=== PATIENT | female | born 1940 | race Caucasian/White ===

== ENCOUNTER 2016-06-28 08:55 | Inpatient (IN) | payer MEDICARE, BC ==
[~2016-06-28] VITALS: Ht 160 cm; Wt 104.7 kg
[~2016-06-28 08:55] MED LIST changes: -ASPI81TA11 PO; -CALC1TAB33 PO; -CALC250T PO; -HALO5 PO; -HYDR-3580 PO; -LOSA100T PO; -LOSA50TA PO; -MELO15TA2 PO; -VITA500T PO; -VITA60003 PO; -VITD400 PO
[2016-06-28] MEDS ORDERED: LOSA100T PO (10:14)
[2016-06-28] MEDS ORDERED: VITD400 PO (10:17)
[2016-06-28] MEDS ORDERED: VITA500T PO (10:17)
[2016-06-28] MEDS ORDERED: CALC250T PO (10:19)
[2016-07-08] MEDS: TRANEXAMIC ACID IV SCH ×2 (08:30→10:18)
[2016-07-08] MEDS ORDERED: SODIUM CHLORID 0.9% 500 ML IV SCH (08:30)
[2016-07-08] MEDS ORDERED: INSULIN HUMAN REGULAR 1,000 UNITS/10 ML VIAL SQ PRN (08:30)
[2016-07-08] MEDS ORDERED: METOPROLOL TARTRATE 25 MG TAB PO PRN (08:30)
[2016-07-08] MEDS ORDERED: ceFAZolin 2 GM PREMIX 50 ML IV SCH (08:30)
[2016-07-08] MEDS: SODIUM CHLORIDE 0.9% IV SCH ×2 (08:30→10:18)
[2016-07-08] MEDS: EXPAREL PERI-ARTICULAR INJECTION (TOTAL VOL. 100 ML) P-ARTICULR SCH ×4 (08:30→10:31)
[2016-07-08] MEDS: CHLORHEXIDINE GLUCONATE 4% SOLN 120 ML BTL TOP SCH (08:30)
[2016-07-08] MEDS: LACTATED RINGER'S 1000 ML IV SCH (08:35)
[2016-07-08 08:38] VITALS: BP 142/69; PULSE 81; RESP 16; TEMP 99; O2SAT 99
[2016-07-08] MEDS ORDERED: GENTAMICIN SULFATE 80 MG/2 ML VIAL ONE (08:46)
[2016-07-08] MEDS ORDERED: MIDAZOLAM HCL 2 MG/2 ML VIAL ONE (09:42)
[2016-07-08] MEDS ORDERED: FAMOTIDINE 20 MG/2 ML VIAL ONE (09:42)
[2016-07-08] MEDS ORDERED: ACETAMINOPHEN 1000 MG/100 ML VIAL IV ONE (09:42)
[2016-07-08] MEDS ORDERED: DEXAMETHASONE SOD PHOS 4 MG/ML VIAL ONE (09:43)
[2016-07-08] MEDS ORDERED: ONDANSETRON HCL 4 MG/2 ML VIAL IVP PRN (09:45)
[2016-07-08] MEDS ORDERED: ZOLPIDEM TARTRATE 5 MG TAB PO PRN (09:45)
[2016-07-08] MEDS ORDERED: MAGNESIUM HYDROXIDE SUSP 30 ML CUP PO PRN (09:45)
[2016-07-08] MEDS ORDERED: MORPHINE SULFATE 4 MG/ML INJ IV PUSH PRN (09:45)
[2016-07-08] MEDS ORDERED: SODIUM CHLORIDE 0.9% FLUSH 5 ML FLUSH IVF PRN (09:45)
[2016-07-08] MEDS ORDERED: Post-op Orders (for Pharmacy) MISC XX ONE (09:45)
[2016-07-08] MEDS ORDERED: ACETAMINOPHEN/HYDROcodone 325 MG/7.5 MG TAB PO PRN (09:45)
[2016-07-08] MEDS ORDERED: TRANEXAMIC ACID IV SCH ×2 (11:00→12:00)
[2016-07-08] MEDS ORDERED: SODIUM CHLORIDE 0.9% IV SCH ×2 (11:00→12:00)
[2016-07-08] MEDS ORDERED: ASPIRIN EC 81 MG TABEC PO SCH (11:45)
[2016-07-08] MEDS ORDERED: ePHEDrine/NS 25 MG/5 ML SYR IV ONE (12:00)
[2016-07-08] MEDS ORDERED: PHENYLEPH/NS 1000 MCG/10 ML SYR IV ONE (12:00)
[2016-07-08] MEDS ORDERED: PROPOFOL 200 MG/20 ML AMP IV ONE (12:00)
[2016-07-08] MEDS ORDERED: ONDANSETRON HCL 4 MG/2 ML VIAL IV PUSH ONE (12:00)
--- NOTE | 2016-07-08 13:38 | MP ---
cc: Abdirizak JORDAN. DATE OF SURGERY 07/08/2016 PREOPERATIVE DIAGNOSIS Primary osteoarthritis right knee. POSTOPERATIVE DIAGNOSIS Primary osteoarthritis right knee. OPERATION PERFORMED Right total knee arthroplasty using [employer] Triathlon prosthesis (uncemented). SURGEON Regine Jordan MD [employer] Tana Carpenter, SHEET MET[employer] APPRENTICE ANESTHESIA Spinal with supplemental adductor canal block and local. INDICATIONS AND FINDINGS This 74-year-old woman has had longstanding right knee pain for least the past two years which has progressively worsened more recently. She only walk short distances because of the pain. She has difficulty ascending and descending stairs. She has difficulty when she tries to shop. She has to lean on a cart when she is shopping. She has tried anti-inflammatory agents, analgesics, activity modification, exercise and ambulatory aids in order to improve but this does not help and it is worsening. Physical findings showed medial laxity and medial tenderness with crepitation, particularly in the medial compartment but also patellofemoral. X-rays showed severe osteoarthritis in the right knee going to [id number] with an area of irregularity in the subchondral area in the medial tibial plateau. There are medial and lateral and patellofemoral osteophytes. Operative findings showed significant arthritis. It was tricompartmental in nature, especially medially. In the posterior aspect of the tibial plateau there was an area of approximately 1.5 cm in diameter that was very soft and fibrous that could have been osteonecrosis. Underneath this was significantly sclerotic bone. PROSTHESIS USED [place] Triathlon prosthesis with the femur being a size 5 right cruciate-retaining uncemented, the tibia being a size 4 Tritanium uncemented, the spacer being a size 4, 9-mm cruciate-retaining of X3 polyethylene and the patella being a Tritanium-backed asymmetric patella size 35. PROCEDURE The patient had an adductor canal block carried out preoperatively. She was then brought to the clean-air operating suite where a spinal anesthetic was administered. She was placed into a supine position on the operating table with a small bolster under the right hip. Pneumatic tourniquet was applied to the right thigh. The limb was then prepped with alcohol, Hibiclens and Chloraprep and draped in the usual manner with the hip draped free. An appropriate time-out procedure was carried out. Local anesthesia was administered into the incision site prior to making incision. An anterior incision was then made from about three fingerbreadths above the superior medial pole of patella down to the tibial tubercle. The incision was deepened through the subcutaneous tissues to the retinacular structures which were exposed medially and laterally. A medial retinacular incision was then made from the superior medial pole of the patella down to the tibial tubercle and up into the quadriceps tendon splitting it longitudinally in the medial one-third. The patella was reflected. The infrapatellar fat pad was debulked. Medial and lateral dissection was carried out. Fenestration was made in the distal end of the femur and proximal tibia for intermedullary referencing guides. The femoral guide was then positioned for 5-degrees, 8-mm cut and stabilized with pins. The jig was removed. The distal femoral cut was completed. The sizing guide was then positioned along Whitesides line in the epicondylar axis. This was stabilized with pins. The size was determined to be a size 5 femur. A size 4 would notch significantly. The femoral four-in-one cutting block was then positioned in place and anterior and posterior cuts made followed by posterior and anterior chamfer cuts. Osteophytes were trimmed. Medial and lateral meniscectomies were completed. The anterior cruciate ligament had been excised. The distal tibial cutting block was then assembled and positioned in place with pins using the spacer. This was then adjusted according to the spacer block. The stylus was used off the high side which was lateral. An initial cut was made with the oscillating saw. This went through the middle of the lesion that was identified and palpated posteriorly. The lesion was then eliminated with the next cut 2 mm distal. There was eburnation of bone under this. This had a benign appearance that appeared more fibrous than neoplastic. The tibial baseplate trial was positioned in place after osteophytes were trimmed from the posterior aspect of the femur. The 9-mm spacer was inserted. The femoral trial was impacted into place. The tibia was adjusted for rotation and stabilized with pins. The patella drill holes were made for the 35-mm patella. The posterior surface of the patella had been excised prior to preparation of the femur. The knee was taken through a range of motion which was 0 degrees extension to about 130 degrees of flexion. The stability was excellent. Tracking was appropriate. The patella trial was removed. The femoral drill holes were made followed by removal of the femoral trial. The tibial spacer was removed. Tibial punch was impacted through its guide after fenestrations were plugged with bone plugs. Local anesthesia was administered at the knee with Exparel. The tibial baseplate was then impacted into place and seated appropriately. This was a size 4. The size 9-mm cruciate-retaining spacer was inserted into the tibia and impacted into place. The femoral component which was a size 5 right cruciate-retaining was impacted into place and seated appropriately. The patella which was a Tritanium-backed 35-mm patella was positioned in place and tightened with a patellar vice. The cut ends of bone were cleaned with pulse lavage. The drains were brought out the superolateral aspect of the suprapatellar pouch. The remainder of the local anesthesia was administered. Wound closure then commenced using 0 Vicryl interrupted [id number] sutures for retinacular closure, 2-0 Vicryl interrupted simple sutures with buried knots for the subcutaneous tissues and 4-0 Monocryl continuous subcuticular closure with the skin. The wound was dressed with Steri-Strips, followed by dry dressing, sterile Sof-Rol, cooling pad, further sterile Sof-Rol and Sergei bandage from the base of the toe to mid-thigh. The patient was transferred from the operating room to the recovery room in satisfactory condition having tolerated the procedure well. COUNTS Correct. SPECIMEN Tibial plateau lesion. ESTIMATED BLOOD LOSS 250 mL. MD AMEE Cerda/DAQUAN /12:38 PM /1:27 PM
[2016-07-08] MEDS: LACTATED RINGER'S 1000 ML INJ 1,000 ML IV SCH ×2 (13:39→21:36)
[2016-07-08] MEDS: KETOROLAC TROMETHAMINE 30 MG/ML (IVP) VIAL IVP SCH ×3 (14:00→21:35)
--- NOTE | 2016-07-08 14:21 | RADRPT ---
EXAM DATE/TIME: 07/08/2016 13:42 [place] COMPARISON: No previous studies available for comparison. INDICATIONS : Post op right knee. MEDICAL HISTORY : None. SURGICAL HISTORY : None. ENCOUNTER: Initial ACUITY: 1 day PAIN SCORE: 4/10 LOCATION: Right knee FINDINGS: Two view examination of the right knee demonstrates postsurgical changes following joint replacement. Patellar, femoral and tibial prosthetic components are in satisfactory alignment well seated. Surgical drain is identified within the joint. There is no acute fracture. CONCLUSION: Satisfactory post operative appearance of the right knee following joint replacement. Vidal St MD on July 08, 2016 at 14:18 Board Certified Radiologist. This report was verified electronically.
[2016-07-08] MEDS ORDERED: *morphine SULFATE 8 MG/ML PERIprocedure ONLY ONE ×2 (14:57→16:10)
[2016-07-08 16:15] VITALS: BP 124/73; PULSE 82; RESP 18; TEMP 97; O2SAT 96
--- NOTE | 2016-07-08 17:04 | PD.CONS ---
HPI Service [facility] Hospitalists Consult Requested By Dr. Mari Reason for Consult Medical management Primary Care Physician Donna Perez DO Diagnoses: (1) Primary osteoarthritis of right knee (2) Hypertension (3) Schizophrenia (4) Sleep apnea History of Present Illness The patient is a 76-year-old female with history of hypertension and schizophrenia who is status post right total knee arthroplasty. Hospitalist consultation was requested for medical management. The patient states that her pain is currently well controlled. She has no other acute concerns. Denies chest pain or dyspnea. Review of Systems Constitutional: DENIES: Fever, Chills, Night Sweats Eyes: DENIES: Blurred vision, Vision loss Ears, nose, mouth, throat: DENIES: Hearing loss Respiratory: DENIES: Cough, Wheezing, Sputum production, Shortness of breath Cardiovascular: DENIES: Chest pain, Palpitations, Dyspnea on Exertion, Lower Extremity Edema Gastrointestinal: DENIES: Abdominal pain, Constipation, Diarrhea, Nausea, Vomiting Genitourinary: DENIES: Urinary frequency, Urinary incontinence, Urgency, Hematuria, Dysuria, Nocturia Musculoskeletal: COMPLAINS OF: Joint pain, DENIES: Muscle aches Integumentary: DENIES: Pruritus, Rash Hematologic/lymphatic: DENIES: Bruising Neurologic: DENIES: Headache Past Family Social History Allergies: Coded Allergies: No Known Allergies (Unverified , 07/08/16) Past Medical History Hypertension Osteoarthritis Schizophrenia Sleep apnea Past Surgical History Vulvectomy Hysterectomy Bilateral cataract surgery Reported Medications Losartan 100 mg daily Haldol 2.5 mg daily at bedtime Pravastatin 40 mg daily Multivitamin daily Aspirin 81 mg daily Meloxicam 15 mg daily Protonix 40 mg daily calcium citrate daily Vitamin C daily Vitamin D 3 daily Vitamin E daily Family History Heart disease Social History Patient denies alcohol, tobacco, or illicit drug use. Physical Exam Vital Signs Vital Signs Date Time Temp Pulse Resp B/P Pulse Ox O2 Delivery O2 Flow Rate FiO2 07/08/16 16:37 Room Air 07/08/16 16:15 97.0 82 18 124/73 96 07/08/16 16:15 98.2 76 16 141/74 96 Room Air 07/08/16 16:00 93 16 159/80 98 Room Air 07/08/16 15:30 81 16 131/70 95 Room Air 07/08/16 15:00 73 17 137/67 97 Room Air 07/08/16 14:30 69 17 117/65 97 Room Air 07/08/16 14:00 71 15 126/73 100 Room Air 07/08/16 13:45 76 15 129/76 100 Room Air 07/08/16 13:30 69 15 122/58 95 Nasal Cannula 2 07/08/16 13:15 70 17 122/64 95 Nasal Cannula 2 07/08/16 13:00 82 15 119/57 95 Nasal Cannula 2 07/08/16 12:54 97.6 90 14 110/58 93 Nasal Cannula 2 07/08/16 08:38 99.0 81 16 142/69 99 Physical Exam GENERAL: Elderly female in no acute distress. HEENT: Normocephalic, atraumatic. Pupils equal, round and reactive. Extraocular movements intact. No scleral icterus. No injection or drainage. Oropharynx is clear. Mucous membranes are moist. CARDIOVASCULAR: Regular rate and rhythm without murmurs, gallops, or rubs. RESPIRATORY: Clear to auscultation. No wheezes, rales, or rhonchi. Breathing is non-labored. GASTROINTESTINAL: Abdomen soft, non-tender, nondistended. EXTREMITIES: No lower extremity edema. No calf tenderness. Right lower extremity in CPM machine. PSYCH: Alert and oriented x 3. Laboratory Laboratory Tests Test 07/08/16 08:25 Blood Type A POSITIVE Antibody Screen NEGATIVE Blood Bank Comment Imaging Last Impressions Knee X-Ray 07/08/16 0940 Signed Impressions: Service Date/Time: Friday, July 08, 2016 13:42 - CONCLUSION: Satisfactory post operative appearance of the right knee following joint replacement. Vidal St MD Assessment and Plan Assessment and Plan 1. Osteoarthritis, right knee: Status post right total knee arthroplasty, POD # 0. Management per orthopedic surgery. Continue pain control, bowel regimen, physical therapy. 2. Hypertension: Continue losartan. 3. Schizophrenia: Continue Haldol. 4. Sleep apnea: CPAP. 5. GERD: PPI. 6. Hyperlipidemia: Continue statin. 7. DVT prophylaxis: Per orthopedic surgery. Jeb Lin MD Jul 08, 2016 17:04
[2016-07-08 20:00] VITALS: BP 109/55; PULSE 75; RESP 17; TEMP 98.2; O2SAT 94
[2016-07-08] MEDS: SODIUM CHLORIDE 0.9% FLUSH 5 ML FLUSH IVF SCH (21:35)
[2016-07-08] MEDS: HALOPERIDOL 5 MG TAB PO SCH (21:35)
[2016-07-08] MEDS: ACETAMINOPHEN/HYDROcodone 325 MG/7.5 MG TAB PO PRN (21:40)
[2016-07-08 22:04] VITALS: O2SAT 98
[2016-07-09] VITALS (9 sets, daily range): BP systolic 118–137; BP diastolic 51–68; PULSE 70–81; RESP 17–18; TEMP 96–97.8; O2SAT 95–100
[2016-07-09] MEDS: KETOROLAC TROMETHAMINE 30 MG/ML (IVP) VIAL IVP SCH ×4 (03:09→22:47)
--- NOTE | 2016-07-09 06:21 | PD.ORT.PN ---
Subjective Post Op Day #: 1 Subjective Remarks Doing well. Has some pain. Range of Motion -18 to 55 degrees. Distance Walked Sidestepped 3 times. Objective Vitals Vital Signs Date Time Temp Pulse Resp B/P Pulse Ox O2 Delivery O2 Flow Rate FiO2 07/09/16 04:00 96.3 79 18 128/58 100 07/09/16 00:00 96.3 73 17 118/53 96 07/08/16 22:04 98 21 07/08/16 20:00 98.2 75 17 109/55 94 07/08/16 16:37 Room Air 07/08/16 16:15 97.0 82 18 124/73 96 07/08/16 16:15 98.2 76 16 141/74 96 Room Air 07/08/16 16:00 93 16 159/80 98 Room Air 07/08/16 15:30 81 16 131/70 95 Room Air 07/08/16 15:00 73 17 137/67 97 Room Air 07/08/16 14:30 69 17 117/65 97 Room Air 07/08/16 14:00 71 15 126/73 100 Room Air 07/08/16 13:45 76 15 129/76 100 Room Air 07/08/16 13:30 69 15 122/58 95 Nasal Cannula 2 07/08/16 13:15 70 17 122/64 95 Nasal Cannula 2 07/08/16 13:00 82 15 119/57 95 Nasal Cannula 2 07/08/16 12:54 97.6 90 14 110/58 93 Nasal Cannula 2 07/08/16 08:38 99.0 81 16 142/69 99 I/O 07/08/16 07/08/16 07/08/16 07/09/16 07/09/16 07/09/16 07:00 15:00 23:00 07:00 15:00 23:00 Intake Total 1200 ml 1456 ml 559 ml Output Total 250 ml 220 ml 30 ml Balance 950 ml 1236 ml 529 ml Intake Oral 240 ml IV Total 1216 ml 559 ml Other 1200 ml Output Urine Total 0 ml 20 ml Drainage Total 200 ml 30 ml Estimated Blood Loss 250 ml # Voids 1 # Bowel Movements 0 Imaging Last 24 hours Impressions Knee X-Ray 07/08/16 0940 Signed Impressions: Service Date/Time: Friday, July 08, 2016 13:42 - CONCLUSION: Satisfactory post operative appearance of the right knee following joint replacement. Vidal St MD Objective Remarks Resting comfortably, supine in bed, in the CPM. The original dressing is dry and intact. The neurovascular status is intact. Assessment & Plan Ortho Post Op Day #: 1 Problem List: (1) Status post total right knee replacement Assessment and Plan Condition: Good. Orthopaedically stable. DVT prophylaxis: TEDs, sequentials, ASA. Discharge plans: Home with HHC vs SNF for rehab. Has appointment. Salo Mari MD (Charles) Jul 09, 2016 06:21
[2016-07-09 07:17] LABS: HEMATOCRIT 35.5 % (35.0-46.0); REVIEW FLAG FINAL
[2016-07-09] MEDS: LACTATED RINGER'S 1000 ML IV SCH (08:30)
[2016-07-09] MEDS: CHLORHEXIDINE GLUCONATE 4% SOLN 120 ML BTL TOP SCH (08:30)
[2016-07-09] MEDS: SODIUM CHLORIDE 0.9% FLUSH 5 ML FLUSH IVF SCH ×2 (09:00→20:07)
[2016-07-09] MEDS ORDERED: ASPIRIN EC 81 MG TABEC PO SCH (09:00)
[2016-07-09] MEDS: CHOLECALCIFEROL (VIT D3) 400 UNIT TAB PO SCH (10:03)
[2016-07-09] MEDS: PANTOPRAZOLE SOD 40 MG DELAYED RELEASE TAB PO SCH (10:03)
[2016-07-09] MEDS: PRAVASTATIN SOD 40 MG TAB PO SCH (10:03)
[2016-07-09] MEDS: ASCORBIC ACID 500 MG TAB PO SCH (10:03)
[2016-07-09] MEDS: VITAMIN E 400 UNIT CAP PO SCH (10:03)
[2016-07-09] MEDS: LOSARTAN 50 MG TAB PO SCH (10:03)
[2016-07-09] MEDS: ACETAMINOPHEN/HYDROcodone 325 MG/7.5 MG TAB PO PRN ×3 (10:04→20:09)
[2016-07-09] MEDS: MULTIVITAMIN HEMATINIC THERAPEUTIC TAB PO SCH (10:04)
[2016-07-09] MEDS: MAGNESIUM HYDROXIDE SUSP 30 ML CUP PO SCH ×2 (10:05→20:08)
[2016-07-09] MEDS: LACTATED RINGER'S 1000 ML INJ 1,000 ML IV SCH ×2 (10:40→23:10)
[2016-07-09] MEDS: ASPIRIN EC 81 MG TABEC PO SCH ×2 (11:45→20:08)
--- NOTE | 2016-07-09 14:21 | HHI.PR ---
Subjective Remarks Follow-up hypertension, schizophrenia. Objective Vitals Vital Signs Date Time Temp Pulse Resp B/P Pulse Ox O2 Delivery O2 Flow Rate FiO2 07/09/16 12:00 97.7 70 18 126/68 96 07/09/16 11:04 16 07/09/16 11:04 16 07/09/16 09:50 100 21 07/09/16 08:00 96.0 76 18 128/59 97 07/09/16 07:30 Room Air 07/09/16 04:00 96.3 79 18 128/58 100 07/09/16 00:00 96.3 73 17 118/53 96 07/08/16 22:04 98 21 07/08/16 20:00 98.2 75 17 109/55 94 07/08/16 16:37 Room Air 07/08/16 16:15 97.0 82 18 124/73 96 07/08/16 16:15 98.2 76 16 141/74 96 Room Air 07/08/16 16:00 93 16 159/80 98 Room Air 07/08/16 15:30 81 16 131/70 95 Room Air 07/08/16 15:00 73 17 137/67 97 Room Air 07/08/16 14:30 69 17 117/65 97 Room Air I/O 07/08/16 07/08/16 07/08/16 07/09/16 07/09/16 07/09/16 07:00 15:00 23:00 07:00 15:00 23:00 Intake Total 1200 ml 1456 ml 799 ml Output Total 250 ml 220 ml 30 ml Balance 950 ml 1236 ml 769 ml Intake Oral 240 ml 240 ml IV Total 1216 ml 559 ml Other 1200 ml Output Urine Total 0 ml 20 ml Drainage Total 200 ml 30 ml Estimated Blood Loss 250 ml # Voids 1 2 # Bowel Movements 0 0 Result Diagram: 07/09/16 0655 Imaging Last Impressions Knee X-Ray 07/08/16 0940 Signed Impressions: Service Date/Time: Friday, July 08, 2016 13:42 - CONCLUSION: Satisfactory post operative appearance of the right knee following joint replacement. Vidal St MD Objective Remarks General: No acute distress. Heart: Regular rate and rhythm. No murmur. Lungs: Clear to auscultation bilaterally. No wheezes, rales, or rhonchi. Breathing is nonlabored. Abdomen: Soft, nontender, nondistended. Extremities: No lower extremity edema. Psych: Alert and oriented. Procedures 07/08/16 right total knee arthroplasty A/P Problem List: (1) Primary osteoarthritis of right knee ICD Code: M17.11 Status: Chronic (2) Hypertension ICD Code: I10 Status: Chronic (3) Schizophrenia ICD Code: F20.9 Status: Chronic (4) Sleep apnea ICD Code: G47.30 Status: Chronic Assessment and Plan 1. Osteoarthritis, right knee: Status post right total knee arthroplasty, POD # 1. Management per orthopedic surgery. Continue pain control, bowel regimen, physical therapy. 2. Hypertension: Continue losartan. Blood pressure is well controlled. 3. Schizophrenia: Continue Haldol. 4. Sleep apnea: CPAP. 5. GERD: PPI. 6. Hyperlipidemia: Continue statin. 7. DVT prophylaxis: Aspirin. Jeb Lin MD Jul 09, 2016 14:21
--- NOTE | 2016-07-09 18:03 | HHI.FF ---
Face to Face Verification Diagnosis: (1) Status post total right knee replacement Physical Therapy Gait training Knee: Total knee, Protocol: Right, Gait training, Full weight bearing Right LE Weight Bearing: WB as tolerated Right LE Range of Motion: Active ROM (AROM, AAROM., PROM, PRE. ROM goal is 0 to 130 degrees. ROM in the OR was 0 to 130 degrees.) Nursing Nursing: Dressing changes Dressing Changes: Daily dressing change, Coverderm/Primapore Additional Instructions Remove steristrips on postop day 14. I have seen patient Kristen Goncalves on 07/09/16. My clinical findings support the need for the requested home health care services because: Ltd mobility - disease progression Limited ability to care for self High risk of falls I certify that my clinical findings support that this patient is homebound because: Post-op weakness Unsteady gait/balance Unsafe to leave home unassisted Salo Mari MD ([place]) Jul 09, 2016 18:03
[2016-07-09] MEDS ORDERED: ASPI81TA11 PO (18:04)
[2016-07-09] MEDS: DOCUSATE SODIUM 100 MG CAP PO SCH (20:07)
[2016-07-09] MEDS: HALOPERIDOL 5 MG TAB PO SCH (20:08)
[2016-07-09] MEDS: SENNOSIDES 8.6 MG TAB PO SCH (20:09)
[2016-07-10] MEDS: ACETAMINOPHEN/HYDROcodone 325 MG/7.5 MG TAB PO PRN ×5 (01:34→18:27)
[2016-07-10] MEDS: KETOROLAC TROMETHAMINE 30 MG/ML (IVP) VIAL IVP SCH (03:45)
--- NOTE | 2016-07-10 06:42 | PD.ORT.PN ---
Subjective Post Op Day #: 2 Subjective Remarks She is doing well. There is not much pain. Range of Motion -10 to 85 degrees. Distance Walked 12 feet twice. Objective Vitals Vital Signs Date Time Temp Pulse Resp B/P Pulse Ox O2 Delivery O2 Flow Rate FiO2 07/09/16 23:30 97.8 81 17 121/51 99 07/09/16 20:29 95 21 07/09/16 20:10 97.7 81 17 131/61 95 07/09/16 20:00 95 Room Air 07/09/16 17:30 16 07/09/16 16:28 16 07/09/16 16:00 97.6 79 18 137/62 98 07/09/16 12:00 97.7 70 18 126/68 96 07/09/16 09:50 100 21 07/09/16 08:00 96.0 76 18 128/59 97 07/09/16 07:30 Room Air I/O 07/09/16 07/09/16 07/09/16 07/10/16 07/10/16 07/10/16 07:00 15:00 23:00 07:00 15:00 23:00 Intake Total 799 ml 480 ml 720 ml 240 ml Output Total 30 ml 50 ml 20 ml Balance 769 ml 430 ml 700 ml 240 ml Intake Oral 240 ml 480 ml 720 ml 240 ml IV Total 559 ml Drainage Total 30 ml 50 ml 20 ml # Voids 2 2 2 2 # Bowel Movements 0 1 0 0 Result Diagram: 07/09/16 0655 Imaging Last 24 hours Impressions Knee X-Ray 07/08/16 0940 Signed Impressions: Service Date/Time: Friday, July 08, 2016 13:42 - CONCLUSION: Satisfactory post operative appearance of the right knee following joint replacement. Vidal St MD Objective Remarks She is resting comfortably, supine in bed, in the CPM. The original dressing is dry and intact. The neurovascular status is intact. Assessment & Plan Ortho Post Op Day #: 2 Problem List: (1) Status post total right knee replacement Plan: Continue postop care and PT. Assessment and Plan Condition: Good. Orthopaedically stable. DVT prophylaxis: TEDs, sequentials, ASA. Discharge plans: SNF for rehab. Has appointment. Salo Mari MD (Charles) Jul 10, 2016 06:42
[2016-07-10 07:24] VITALS: BP 116/78; PULSE 95; RESP 16; TEMP 96.1; O2SAT 98
[2016-07-10] MEDS: CHLORHEXIDINE GLUCONATE 4% SOLN 120 ML BTL TOP SCH (08:30)
[2016-07-10] MEDS: LACTATED RINGER'S 1000 ML IV SCH (08:30)
[2016-07-10 08:58] VITALS: O2SAT 97
--- NOTE | 2016-07-10 09:09 | HHI.PR ---
Subjective Remarks patient very motivated with physical therapy up ambulating with two therapists voided spontaneously Objective Vitals Vital Signs Date Time Temp Pulse Resp B/P Pulse Ox O2 Delivery O2 Flow Rate FiO2 07/10/16 08:58 97 21 07/09/16 23:30 97.8 81 17 121/51 99 07/09/16 20:29 95 21 07/09/16 20:10 97.7 81 17 131/61 95 07/09/16 20:00 95 Room Air 07/09/16 17:30 16 07/09/16 16:28 16 07/09/16 16:00 97.6 79 18 137/62 98 07/09/16 12:00 97.7 70 18 126/68 96 07/09/16 09:50 100 21 I/O 07/09/16 07/09/16 07/09/16 07/10/16 07/10/16 07/10/16 07:00 15:00 23:00 07:00 15:00 23:00 Intake Total 799 ml 480 ml 720 ml 240 ml Output Total 30 ml 50 ml 20 ml 15 ml Balance 769 ml 430 ml 700 ml 225 ml Intake Oral 240 ml 480 ml 720 ml 240 ml IV Total 559 ml Drainage Total 30 ml 50 ml 20 ml 15 ml # Voids 2 2 2 2 # Bowel Movements 0 1 0 0 Result Diagram: 07/09/16 0655 Imaging Last Impressions Knee X-Ray 07/08/16 0940 Signed Impressions: Service Date/Time: Friday, July 08, 2016 13:42 - CONCLUSION: Satisfactory post operative appearance of the right knee following joint replacement. Vidal St MD Objective Remarks awake and alert, NAD lungs clear regular rhythm abdomen- soft extremities - right knee- post op dressing in place, no calf tenderness ambulating with PT with FWW Procedures 07/08/16 right total knee arthroplasty A/P Problem List: (1) Primary osteoarthritis of right knee ICD Code: M17.11 Status: Chronic (2) Hypertension ICD Code: I10 Status: Chronic (3) Schizophrenia ICD Code: F20.9 Status: Chronic (4) Sleep apnea ICD Code: G47.30 Status: Chronic Assessment and Plan 76 years old female 1. Osteoarthritis, right knee: Status post right total knee arthroplasty 07/08. Management per orthopedic surgery. Continue pain control, bowel regimen, physical therapy. 2. Hypertension: Continue losartan. Blood pressure is well controlled. 3. Schizophrenia: Continue Haldol. 4. Sleep apnea: CPAP. 5. GERD: PPI. 6. Hyperlipidemia: Continue statin. 7. DVT prophylaxis: Aspirin. bid CM - DC planning- tomorrow to SNF if arranged Awa Bowen MD Jul 10, 2016 09:09
[2016-07-10] MEDS: LOSARTAN 50 MG TAB PO SCH (09:23)
[2016-07-10] MEDS: MAGNESIUM HYDROXIDE SUSP 30 ML CUP PO SCH ×2 (09:23→21:00)
[2016-07-10] MEDS: VITAMIN E 400 UNIT CAP PO SCH (09:24)
[2016-07-10] MEDS: PRAVASTATIN SOD 40 MG TAB PO SCH (09:24)
[2016-07-10] MEDS: MULTIVITAMIN HEMATINIC THERAPEUTIC TAB PO SCH (09:24)
[2016-07-10] MEDS: PANTOPRAZOLE SOD 40 MG DELAYED RELEASE TAB PO SCH (09:24)
[2016-07-10] MEDS: DOCUSATE SODIUM 100 MG CAP PO SCH ×2 (09:24→21:00)
[2016-07-10] MEDS: CHOLECALCIFEROL (VIT D3) 400 UNIT TAB PO SCH (09:24)
[2016-07-10] MEDS: ASCORBIC ACID 500 MG TAB PO SCH (09:24)
[2016-07-10] MEDS: ASPIRIN EC 81 MG TABEC PO SCH ×2 (09:24→21:01)
[2016-07-10] MEDS: SODIUM CHLORIDE 0.9% FLUSH 5 ML FLUSH IVF SCH ×2 (09:25→21:01)
[2016-07-10] MEDS: LACTATED RINGER'S 1000 ML INJ 1,000 ML IV SCH ×2 (11:40→22:13)
[2016-07-10 12:36] VITALS: BP 120/44; PULSE 110; RESP 17; TEMP 99; O2SAT 96
[2016-07-10 17:00] VITALS: BP 139/48; PULSE 118; RESP 17; TEMP 99.1; O2SAT 92
[2016-07-10 20:00] VITALS: BP_SYST 141; BP_SYST 146; BP_DIAS 43; BP_DIAS 62; PULSE 122; RESP 18; TEMP 100.2; O2SAT 96
[2016-07-10] MEDS: SENNOSIDES 8.6 MG TAB PO SCH (21:00)
[2016-07-10] MEDS: HALOPERIDOL 5 MG TAB PO SCH (21:00)
[2016-07-11] VITALS: BP 147/67; PULSE 110; RESP 18; TEMP 99.1; O2SAT 96
[2016-07-11 04:00] VITALS: BP 157/69; PULSE 111; RESP 19; TEMP 99.1; O2SAT 94
[2016-07-11] MEDS: ACETAMINOPHEN/HYDROcodone 325 MG/7.5 MG TAB PO PRN ×2 (05:23→09:53)
--- NOTE | 2016-07-11 06:49 | PD.ORT.PN ---
Subjective Post Op Day #: 3 Subjective Remarks She is doing well. There is not much pain. Range of Motion -8 to 87 degrees. Distance Walked 12 then 30 feet. Objective Vitals Vital Signs Date Time Temp Pulse Resp B/P Pulse Ox O2 Delivery O2 Flow Rate FiO2 07/11/16 04:00 99.1 111 19 157/69 94 07/11/16 00:00 99.1 110 18 147/67 96 07/10/16 20:00 100.2 122 18 146/62 96 07/10/16 17:00 99.1 118 17 139/48 92 07/10/16 14:29 16 07/10/16 12:36 99.0 110 17 120/44 96 07/10/16 08:58 97 21 07/10/16 07:24 96.1 95 16 116/78 98 I/O 07/10/16 07/10/16 07/10/16 07/11/16 07/11/16 07/11/16 07:00 15:00 23:00 07:00 15:00 23:00 Intake Total 240 ml 720 ml 480 ml 240 ml Output Total 15 ml Balance 225 ml 720 ml 480 ml 240 ml Intake Oral 240 ml 720 ml 480 ml 240 ml Drainage Total 15 ml # Voids 2 4 3 3 # Bowel Movements 0 0 0 Result Diagram: 07/09/16 0655 Imaging Last 24 hours Impressions Knee X-Ray 07/08/16 0940 Signed Impressions: Service Date/Time: Friday, July 08, 2016 13:42 - CONCLUSION: Satisfactory post operative appearance of the right knee following joint replacement. Vidal St MD Objective Remarks She is resting comfortably, supine in bed, in the CPM. The original dressing is dry and intact. The neurovascular status is intact. Assessment & Plan Problem List: (1) Status post total right knee replacement Plan: Continue postop care and PT. Assessment and Plan Condition: Good. Orthopaedically stable. DVT prophylaxis: TEDs, sequentials, ASA. Discharge plans: SNF for rehab. Has appointment. Salo Mari MD ([place]) Jul 11, 2016 06:49
[2016-07-11] MEDS ORDERED: HYDR-3580 PO (07:03)
[2016-07-11 08:00] VITALS: BP 163/67; PULSE 114; RESP 16; TEMP 99; O2SAT 96
[2016-07-11] MEDS: LACTATED RINGER'S 1000 ML IV SCH (08:30)
--- NOTE | 2016-07-11 08:39 | HHI.PR ---
Subjective Remarks pain 6 out of 10 - meds helping voiding motivated with physical therapy Objective Vitals Vital Signs Date Time Temp Pulse Resp B/P Pulse Ox O2 Delivery O2 Flow Rate FiO2 07/11/16 04:00 99.1 111 19 157/69 94 07/11/16 00:00 99.1 110 18 147/67 96 07/10/16 20:00 100.2 122 18 146/62 96 07/10/16 17:00 99.1 118 17 139/48 92 07/10/16 14:29 16 07/10/16 12:36 99.0 110 17 120/44 96 07/10/16 08:58 97 21 I/O 07/10/16 07/10/16 07/10/16 07/11/16 07/11/16 07/11/16 07:00 15:00 23:00 07:00 15:00 23:00 Intake Total 240 ml 720 ml 480 ml 240 ml Output Total 15 ml Balance 225 ml 720 ml 480 ml 240 ml Intake Oral 240 ml 720 ml 480 ml 240 ml Drainage Total 15 ml # Voids 2 4 3 3 # Bowel Movements 0 0 0 Result Diagram: 07/09/16 0655 Imaging Last Impressions Knee X-Ray 07/08/16 0940 Signed Impressions: Service Date/Time: Friday, July 08, 2016 13:42 - CONCLUSION: Satisfactory post operative appearance of the right knee following joint replacement. Vidal St MD Objective Remarks awake and alert, NAD lungs clear regular rhythm abdomen- soft extremities - right knee- post op dressing in place, no calf tenderness, no pedal edema Procedures 07/08/16 right total knee arthroplasty A/P Problem List: (1) Primary osteoarthritis of right knee ICD Code: M17.11 Status: Chronic (2) Hypertension ICD Code: I10 Status: Chronic (3) Schizophrenia ICD Code: F20.9 Status: Chronic (4) Sleep apnea ICD Code: G47.30 Status: Chronic Assessment and Plan 76 years old female 1. Status post right total knee arthroplasty 07/08. Management per orthopedic surgery. Continue pain control, bowel regimen, physical therapy. 2. Hypertension: Continue losartan.some elevated readings due to pain. monitor and adjust 3. Schizophrenia: Continue Haldol. 4. Sleep apnea: CPAP. hs 5. GERD: PPI. 6. Hyperlipidemia: Continue statin. 7. DVT prophylaxis: Aspirin. bid, TEDs.SCDs CM - DC planning- SNF if arranged- hopefully today Awa Bowen MD Jul 11, 2016 08:39
[2016-07-11] MEDS: MAGNESIUM HYDROXIDE SUSP 30 ML CUP PO SCH (09:00)
[2016-07-11] MEDS: SODIUM CHLORIDE 0.9% FLUSH 5 ML FLUSH IVF SCH (09:00)
[2016-07-11] MEDS: CHOLECALCIFEROL (VIT D3) 400 UNIT TAB PO SCH (09:52)
[2016-07-11] MEDS: PANTOPRAZOLE SOD 40 MG DELAYED RELEASE TAB PO SCH (09:52)
[2016-07-11] MEDS: LOSARTAN 50 MG TAB PO SCH (09:52)
[2016-07-11] MEDS: ASPIRIN EC 81 MG TABEC PO SCH (09:52)
[2016-07-11] MEDS: MULTIVITAMIN HEMATINIC THERAPEUTIC TAB PO SCH (09:52)
[2016-07-11] MEDS: PRAVASTATIN SOD 40 MG TAB PO SCH (09:53)
[2016-07-11] MEDS: DOCUSATE SODIUM 100 MG CAP PO SCH (09:53)
[2016-07-11] MEDS: ASCORBIC ACID 500 MG TAB PO SCH (09:53)
[2016-07-11] MEDS: VITAMIN E 400 UNIT CAP PO SCH (09:53)
--- NOTE | 2016-07-31 08:01 | MD ---
cc: Abdirizak JORDAN. ADMISSION DATE: 07/08/2016 DISCHARGE DATE: 07/11/2016 ADMISSION DIAGNOSIS Primary osteoarthritis right knee FINAL DIAGNOSIS Primary osteoarthritis right knee OPERATIONS DURING THE HOSPITALIZATION Right total knee arthroplasty using [employer] Triathlon prosthesis (uncemented) on 07/08/2016. PRESENT ILLNESS The 74-year-old woman has had longstanding right knee pain over the past two years with progressive worsening more recently so that she has minimal distance of ambulation tolerance. She has difficulty with stairs. She leans on a cart for shopping. She has not responded to anti-inflammatory agents, analgesics, activity modification, exercise and ambulatory aids. Physical findings showed medial laxity and tenderness with crepitation, particularly in the medial compartment, but also patellofemoral. X-rays showed severe arthritis going to [id number] with an irregular area in the subchondral area in the medial tibial plateau. There are osteophytes in the medial and lateral and patellofemoral compartments. HOSPITAL COURSE The patient was admitted on 07/08/2016. After an abductor canal block was carried out, she was transferred to the clean-air operating suite where she had a right total knee arthroplasty carried out as noted above using a spinal anesthetic. She tolerated the procedure well. She was then transferred to the Post Anesthesia Care Unit where she was placed into a continuous passive motion device which was used during the hospitalization while in bed. She started on physical therapy the day of surgery. She was able to side step about three steps. Her range of motion was minus 18-55 degrees. Maximum temperature was 99.0 upon admission. She was continued on physical therapy. She was started on DVT prophylaxis with MAXWELL stockings sequential and aspirin. By the second postoperative day, she had walked 12 feet twice and had a range of motion from minus 10-85 degrees. She remained afebrile. Her hemoglobin was 12.3. She continued to showed good progress. By the third postoperative day, she continued to make progress, but only walked 12 and 30 feet. Her range of motion was minus 8-87 degrees. She was transferred to a senior living facility for rehabilitation. DVT prophylaxis would continue with MAXWELL stockings and aspirin. DISCHARGE MEDICATIONS Included [place] 7.5/325. FOLLOW UP She has a follow-up appointment. MD AMEE Cerda/PRISCILA /6:46 PM /7:50 AM
== END 2016-07-11 11:44 | DRG 470 ==
LOC: HSDI 07-08 07:28 → N06B 07-08 16:25
PROVIDERS: ADMIT Orthopaedic Surgery; ATTEND Orthopaedic Surgery
PROC: 0QRD0JZ Replacement of Right Patella with Synthetic Substitute, Open Approach (ICD-10-PCS; 2016-07-08)
PROC: 3E0T3CZ (ICD-10-PCS; 2016-07-08)
PROC: 0SRC0JA Replacement of Right Knee Joint with Synthetic Substitute, Uncemented, Open Approach (ICD-10-PCS; principal; 2016-07-08 09:55)
DX: M17.11 Unilateral primary osteoarthritis, right knee (principal); I10 Essential (primary) hypertension; M25.761 Osteophyte, right knee; F20.9 Schizophrenia, unspecified; G47.30 Sleep apnea, unspecified; K21.9 Gastro-esophageal reflux disease without esophagitis; E78.5 Hyperlipidemia, unspecified
CPT/HCPCS: 36415; 73560; 85014; 85018; 86850; 86900; 86901; 88300; 88305; 94150; C1776; C9290; J0131; J0690; J1100; J1580; J1885; J2250; J2270; J2370; J2405; J3010; J7120

== ENCOUNTER → 2016-06-28 | Outpatient (CLI) | payer MEDICARE, BC ==
[~2016-06-28] MED LIST: ASPI1TAB69 PO; ASPI81TA11 PO; CALC1TAB33 PO; CALC250T PO; HALO5 PO; HALO5TAB PO; HYDR-3580 PO; LOSA100T PO; LOSA50TA PO; MELO15TA2 PO; MOBI15TA PO; MULTTAB24 PO; PRAV40TA PO; PROT40TA PO; VITA400C2 PO; VITA500T PO; VITA60003 PO; VITD400 PO
[2016-06-28 09:52] LABS: HEMATOCRIT 42.7 % (35.0-46.0); MEAN CELL VOLUME 87.8 FL (80.0-100.0); MEAN CORPUSCULAR HEMOGLOBIN 29.7 PG (27.0-34.0); MEAN CORPUSCULAR HGB CONC 33.9 % (32.0-36.0); PLATELET COUNT 152 TH/MM3 (150-450); RED BLOOD COUNT 4.87 MIL/MM3 (4.00-5.30); RED CELL DISTRIBUTION WIDTH 13.6 % (11.6-17.2); REVIEW FLAG FINAL; WHITE BLOOD COUNT 6.9 TH/MM3 (4.0-11.0)
[2016-06-28 09:58] LABS: APTT (PATIENT) 21.9 SEC (24.3-30.1); PROTHROMBIN TIME - PATIENT 10.8 SEC (9.8-11.6)
[2016-06-28 10:03] LABS: BLOOD, URINE NEG (NEG); GLUCOSE,URINE NEG (NEG); KETONE, URINE NEG (NEG); NITRITE,URINE NEG (NEG); PH, URINE 5.5 (5.0-8.5); SQUAMOUS EPITHELIAL CELL URINE 2 /hpf (0-5); URINE COLOR YELLOW (YELLW/STRAW)
[2016-06-28 10:06] LABS: COMMENT (UR) CATH-CULT NOT IND; CULTURE IF INDICATED CATH CULTURE NOT IND
[2016-06-28 10:11] LABS: POTASSIUM 4.3 MEQ/L (3.5-5.1)
--- NOTE | 2016-06-28 21:57 | EKG ---
Date Performed: 06/28/2016 Time Performed: 09:12:28 PTAGE: 76 years EKG: Sinus rhythm NORMAL ECG NO PREVIOUS TRACING DOCTOR: Ankur Mena Interpretating Date/Time 06/28/2016 21:56:13
== END ==
LOC: CPRE 08:49
PROVIDERS: ATTEND Orthopaedic Surgery
DX: Z01.812 Encounter for preprocedural laboratory examination (principal); Z01.810 Encounter for preprocedural cardiovascular examination; M17.11 Unilateral primary osteoarthritis, right knee; I10 Essential (primary) hypertension
CPT/HCPCS: 36415; 80048; 81001; 85027; 85610; 85730; 93005

== ENCOUNTER → 2017-07-25 | Outpatient (CLI) | payer MEDICARE, BC ==
[~2017-07-25] MED LIST changes: -ASPI1TAB69 PO; +ASPI81TA23 PO; +CALC250T PO; +ECASA81 PO; +HALO1TAB PO; +HYDR-3580 PO; +LOSA100T PO; +LOSA25TA PO; +PARO40TA2 PO; +PRAV20TA2 PO; +VITA-142 PO; +VITA100064 PO; +VITA500T PO; +VITA500T83 PO; +VITD400 PO
[2017-07-25 13:58] LABS: BILIRUBIN, URINE NEG (NEG); BLOOD, URINE NEG (NEG); GLUCOSE,URINE NEG (NEG); KETONE, URINE NEG (NEG); NITRITE,URINE NEG (NEG); PH, URINE 5.5 (5.0-8.5); SQUAMOUS EPITHELIAL CELL URINE 1 /hpf (0-5); URINE COLOR LIGHT-YELLOW (YELLW/STRAW); URINE LEUKOCYTE ESTERASE NEG (NEG)
[2017-07-25 13:58] LABS: HEMATOCRIT 42.4 % (35.0-46.0); HEMOGLOBIN 14.5 GM/DL (11.6-15.3); MEAN CELL VOLUME 86.8 FL (80.0-100.0); MEAN CORPUSCULAR HEMOGLOBIN 29.6 PG (27.0-34.0); MEAN CORPUSCULAR HGB CONC 34.1 % (32.0-36.0); MEAN PLATELET VOLUME 7.5 FL (7.0-11.0); PLATELET COUNT 164 TH/MM3 (150-450); RED BLOOD COUNT 4.89 MIL/MM3 (4.00-5.30); RED CELL DISTRIBUTION WIDTH 13.7 % (11.6-17.2); WHITE BLOOD COUNT 6.9 TH/MM3 (4.0-11.0)
[2017-07-25 14:09] LABS: PROTHROMBIN TIME - PATIENT 10.3 SEC (9.8-11.6)
[2017-07-25 14:16] LABS: BICARBONATE 26.2 MEQ/L (21.0-32.0); CALCIUM 9.8 MG/DL (8.5-10.1); CREATININE 0.92 MG/DL (0.50-1.00)
--- NOTE | 2017-07-26 20:08 | EKG ---
Date Performed: 07/25/2017 Time Performed: 11:58:43 PTAGE: 77 years EKG: Sinus rhythm LOW QRS VOLTAGE IN PRECORDIAL LEADS POSSIBLE ANTERIOR MYOCARDIAL INFARCTION, PROBABLY OLD BORDERLINE ECG Since the PREVIOUS TRACING , no significant change noted PREVIOUS TRACIN06/28/2016 09.12 DOCTOR: Jacob Dubon Interpretating Date/Time 07/26/2017 20:06:48
== END ==
LOC: CPRE 11:23
PROVIDERS: ATTEND Orthopaedic Surgery
DX: Z01.810 Encounter for preprocedural cardiovascular examination (principal); Z01.812 Encounter for preprocedural laboratory examination; M17.12 Unilateral primary osteoarthritis, left knee; M21.162 Varus deformity, not elsewhere classified, left knee; M79.609 Pain in unspecified limb; I10 Essential (primary) hypertension; R94.31 Abnormal electrocardiogram [ECG] [EKG]
CPT/HCPCS: 36415; 80048; 81001; 85027; 85610; 85730; 93005

== ENCOUNTER 2017-08-11 07:41 | Inpatient (IN) | payer MEDICARE, BC ==
[~2017-08-11] VITALS: Ht 162.6 cm; Wt 91.2 kg
[~2017-08-11 07:41] MED LIST changes: -ASPI81TA23 PO; -HALO5TAB PO; -HYDR-3580 PO; -LOSA100T PO; -PRAV40TA PO; -VITA400C2 PO; -VITA500T PO; -VITD400 PO
[2017-08-11] MEDS ORDERED: POVIDONE IODINE 5% (ANTISEPSIS KIT) 4 APPLICATIONS EACH NARE PRN (08:15)
[2017-08-11] MEDS ORDERED: LACTATED RINGER'S 1000 ML IV PRN (08:15)
[2017-08-11] MEDS ORDERED: CEFAZOLIN INJ 2,000 MG in SODIUM CHLORIDE 0.9% INJ 100 ML IV SCH (08:15)
[2017-08-11] MEDS ORDERED: CHLORHEXIDINE GLUCONATE 2 % 1 PACK (2 CLOTHS) TOPICAL PRN (08:15)
[2017-08-11] MEDS ORDERED: METOPROLOL TARTRATE 25 MG TAB PO PRN (08:15)
[2017-08-11] MEDS ORDERED: SODIUM CHLORID 0.9% 500 ML IV PRN (08:15)
[2017-08-11] MEDS ORDERED: POVIDONE IODINE 7.5% SCRUB 118 ML BOTTLE TOPICAL SCH (08:15)
[2017-08-11] MEDS ORDERED: TRANEXAMIC ACID IV SCH ×2 (09:00→12:00)
[2017-08-11] MEDS ORDERED: EXPAREL PERI-ARTICULAR INJECTION (TOTAL VOL. 100 ML) P-ARTICULR SCH ×2 (09:00)
[2017-08-11] MEDS ORDERED: SODIUM CHLORIDE 0.9% IV SCH ×2 (09:00→12:00)
[2017-08-11] MEDS ORDERED: GENTAMICIN SULFATE 80 MG/2 ML VIAL ONE (09:09)
[2017-08-11] MEDS ORDERED: ACETAMINOPHEN 1000 MG/100 ML 100 ML IV ONE (09:16)
[2017-08-11] MEDS ORDERED: FAMOTIDINE 20 MG/2 ML VIAL ONE (09:18)
[2017-08-11] MEDS ORDERED: BUPIVACAINE PF 0.75% DEX-WATER INJ 2 ML AMP ONE (09:18)
[2017-08-11 09:36] LABS: AUTOMATED NEUTROPHIL # 4.2 TH/MM3 (1.8-7.7); BASOPHIL % 0.5 % (0.0-2.0); EOSINOPHIL # 0.1 TH/MM3 (0-0.4); EOSINOPHIL % 1.2 % (0.0-4.0); HEMOGLOBIN 14.7 GM/DL (11.6-15.3); LYMPH % 35.1 % (9.0-44.0); LYMPHOCYTE # 2.8 TH/MM3 (1.0-4.8); MEAN CELL VOLUME 87.2 FL (80.0-100.0); MEAN CORPUSCULAR HEMOGLOBIN 30.5 PG (27.0-34.0); MEAN PLATELET VOLUME 7.7 FL (7.0-11.0); MONO % 10.2 % (0.0-8.0); MONOCYTE # 0.8 TH/MM3 (0-0.9); PLATELET COUNT 162 TH/MM3 (150-450); RED BLOOD COUNT 4.82 MIL/MM3 (4.00-5.30); RED CELL DISTRIBUTION WIDTH 13.8 % (11.6-17.2); WHITE BLOOD COUNT 7.9 TH/MM3 (4.0-11.0)
[2017-08-11] MEDS ORDERED: BUPIVACAINE LIPOSOME PF 1.3% 20 ML VIAL ONE (09:46)
[2017-08-11] MEDS ORDERED: MIDAZOLAM HCL 2 MG/2 ML VIAL ONE (09:46)
[2017-08-11] MEDS ORDERED: PROPOFOL 500 MG/50 ML INJ 50 ML ONE (09:50)
[2017-08-11] MEDS ORDERED: ECASA81 PO (09:55)
--- NOTE | 2017-08-11 09:57 | HHI.FF ---
Face to Face Verification Diagnosis: (1) Status post total left knee replacement Physical Therapy Gait training Knee: Total knee, Protocol: Left, Gait training, Full weight bearing Left LE Weight Bearing: WB as tolerated Left LE Range of Motion: Active ROM (active, active-assisted and passive range of motion. Range of motion goal is 0 extension to 120 of flexion.) Nursing Nursing: Dressing changes Dressing Changes: Daily dressing change, Coverderm/Primapore Additional Instructions Do not remove Dermabond Prineo. I have seen patient Kristen Goncalves on 08/11/17. My clinical findings support the need for the requested home health care services because: Ltd mobility - disease progression Limited ability to care for self High risk of falls I certify that my clinical findings support that this patient is homebound because: Post-op weakness Unsteady gait/balance Unsafe to leave home unassisted Salo Mari MD (Charles) Aug 11, 2017 09:57
[2017-08-11] MEDS ORDERED: ONDANSETRON HCL 4 MG/2 ML VIAL IVP PRN (10:00)
[2017-08-11] MEDS ORDERED: ZOLPIDEM TARTRATE 5 MG TAB PO PRN (10:00)
[2017-08-11] MEDS ORDERED: MORPHINE SULFATE 4 MG/ML INJ IV PUSH PRN (10:00)
[2017-08-11] MEDS ORDERED: TRANEXAMIC ACID INJ 0 MG in SODIUM CHLORIDE 0.9% INJ 100 ML IV SCH (10:00)
[2017-08-11] MEDS ORDERED: ceFAZolin INJ 1,000 MG VIAL ONE (10:10)
[2017-08-11] MEDS ORDERED: Post-op Orders (for Pharmacy) XX ONE (10:10)
[2017-08-11] MEDS ORDERED: LACTATED RINGER'S 1000 ML INJ 1,000 ML IV ONE (12:00)
[2017-08-11] MEDS ORDERED: DEXAMETHASONE SOD PHOS 4 MG/ML VIAL IV ONE (12:00)
[2017-08-11] MEDS ORDERED: NEOSTIGMINE 5 MG/5 ML SYRINGE IV PUSH ONE (12:00)
[2017-08-11] MEDS ORDERED: ESMOLOL HCL 100 MG/10 ML VIAL IV ONE (12:00)
[2017-08-11] MEDS ORDERED: LIDOCAINE HCL 1% PF 5 ML SYRINGE OTHER ONE (12:00)
[2017-08-11] MEDS ORDERED: ePHEDrine/NS 25 MG/5 ML SYRINGE IV ONE (12:00)
[2017-08-11] MEDS ORDERED: ROCURONIUM INJ 50 MG/5 ML SYRINGE IV PUSH ONE (12:00)
[2017-08-11] MEDS ORDERED: PROPOFOL 200 MG/20 ML AMP IV ONE (12:00)
[2017-08-11] MEDS ORDERED: GLYCOPYRROLATE 1 MG/5 ML SYRINGE IV PUSH ONE (12:00)
[2017-08-11] MEDS ORDERED: ONDANSETRON HCL 4 MG/2 ML VIAL IV ONE (12:00)
[2017-08-11] MEDS ORDERED: PHENYLEPH/NS 1000 MCG/10 ML SYR IV ONE (12:00)
--- NOTE | 2017-08-11 12:41 | PD.OP ---
Operative Report Date of Surgery: Aug 11, 2017 Preoperative Diagnosis: (1) Primary osteoarthritis of left knee Postoperative Diagnosis: (1) Primary osteoarthritis of left knee Procedure: Left total knee arthroplasty using [employer] Triathlon prosthesis (uncemented). Anesthesia: Gen. endotracheal with supplemental adductor canal block regional and local with Exparel. Surgeon: Nickolas Mari M.D. Cambering Machine Operator(s): REBA Don Operation and Findings: Indications and Findings: This 77-year-old woman has had 3 years of left knee pain that has progressively increased to the point that she can only walk limited distances because of the pain. She has complaints of pain, swelling, giving way, difficulty standing from a seated position and pain on any weightbearing. If she shops, she leans on a cart. Treatment has included nonsteroidal anti-inflammatory agents, exercises, analgesics, activity modification and ambulatory aids. These have not been effective recently in controlling her pain. Physical findings show degenerative varum with laxity in the medial compartment and tenderness on range of motion. She has an antalgic gait. Imaging studies show medial arthritis with loss of articular cartilage joint space osteophytes and joint surface irregularity. Operative findings: There was severe osteoarthritis particularly in the medial compartment with loss of articular cartilage to bone on bone. There are osteophytes in the medial, lateral and patellofemoral compartments with patellofemoral arthrosis as well to a major extent. There is subchondral sclerosis in the medial compartment. The prosthesis used was a [employer] Triathlon prosthesis. The femur was a size 4, cruciate retaining, uncemented. The tibial baseplate was a size 4 Tritanium with a 9 mm X3 polyethylene cruciate retaining spacer. The patella was a size 35 mm asymmetric Tritanium backed. The patient was brought to the clean-air operating suite after an adductor canal block regional had been performed. A spinal anesthetic was administered. The position was supine with a small bolster under the hip on the operative side. A pneumatic tourniquet was applied to the upper thigh. The lower extremity was then prepped with alcohol, Hibiclens and ChloraPrep and draped in the usual manner with the knee draped free. An appropriate timeout procedure was carried out. An incision was made from about 3 fingerbreadths above the superior medial pole of patella down the tibial tubercle on the medial side. The incision was deepened through the subcutaneous tissue to the retinacular structures which were exposed medially and laterally. A medial retinacular incision was then made from the superior middle pole of patella down the tibial tubercle and up into the quadriceps tendon splitting it longitudinally and the medial one third. The patella was reflected. The infrapatellar fat pad was debulked. The anterior cruciate ligament was excised. Medial and lateral meniscectomies were initiated. A fenestration was made in the distal femur for the intramedullary referencing guide. A fenestration was made in the proximal tibia for the intramedullary referencing guide. The distal femoral cutting guide and jig were then assembled for a 5, 8 mm cut. When this was in position, the cutting block was stabilized with pins. The jig was removed. The distal femoral cut was then completed with the oscillating saw. The sizing guide was then positioned in place along Whitesides line and the epicondylar axis and stabilized with pins. The femoral size was then determined with the sizing guide. The 4-in-1 cutting block was then positioned in place. Anterior and posterior cuts were made followed by posterior and anterior chamfer cuts taking care to prevent injury to ligamentous structures. Osteophytes were then trimmed from the distal femur. A bone plug was then placed into the fenestration of the distal femur. The proximal tibia was then exposed. The medial and lateral meniscectomies were completed. The proximal tibial cutting guide was then positioned in place and stabilized with a pin for rotation. The depth of cut was then verified with a stylus referencing from the predetermined side. The cutting block was stabilized with pins. The jig was removed. The depth of cut was then verified and adjusted appropriately with the use of the spacer block. The proximal tibial cut was then made with the oscillating saw taking care to prevent injury to neurovascular and ligamentous structures. Proximal tibial bone was removed. Local anesthetic was administered with Exparel in the posterior capsule. The tibial baseplate trial was then positioned in place. After verifying the appropriate size, the base plate trial was positioned in place along with its spacer. The trial femoral component was then impacted into place. The alignment was checked. The trial tibial baseplate was then pinned in place on the tibia. Attention was directed to the patella. The patella drill guide was positioned in place for the appropriate sized patella. Patellar drilling was then carried out. The trial patella was positioned in place. The knee was taken through a range of motion which was easily 0 extension to 120, limited by posterior soft tissues. The patella trial was removed. The femoral drill holes were made. The femoral trial prosthesis was removed. The tibial spacer was removed. A bone plug was placed into the proximal tibia. The tibial punch was impacted through the proximal tibial punch guide. This was all removed followed by placement of the tibial drill guide. The tibial drill holes were then made. The guide was removed. The cut ends of bone were then cleaned with pulse lavage. The tibial baseplate was then impacted into place and seated appropriately. The spacer was inserted. The the femoral component was then impacted into place and seated appropriately. The patella component was then seated with the patellar vice and tightened appropriately. The knee was taken through a range of motion which was comparable to the previous range of motion with excellent stability in flexion and extension and appropriate patellofemoral tracking. The remainder of the Exparel was then injected throughout the knee as a local anesthetic. Drains were brought out the superior lateral aspect of the suprapatellar pouch. Wound closure then commenced using 0 Vicryl interrupted [id number] sutures for the capsular and fascial structures, 2-0 Vicryl interrupted simple sutures with buried knots for the subcutaneous tissues and 4- 0 Monocryl, tenuous subcuticular closure for the skin. The wound was then dressed with Dermabond Prinio followed by dry dressing, sterile soft roll with a cooling pad and Sergei bandage from the base of the toes to mid thigh were then applied. Patient was then transferred from the operating room to the recovery room in satisfactory condition having tolerated procedure well. Counts are correct. Specimens: None. Estimated blood loss: 200 mL Salo Mari MD (Charles) Aug 11, 2017 12:41
[2017-08-11] MEDS ORDERED: HYDR-3580 PO (12:43)
[2017-08-11] MEDS ORDERED: DO NOT ADM ANY ANTICOAGULANT DRUGS PRN (13:06)
[2017-08-11] MEDS: LACTATED RINGER'S 1000 ML INJ 1,000 ML IV SCH ×2 (13:20→22:30)
[2017-08-11] MEDS ORDERED: *morphine SULFATE 4 MG/ML PERIprocedure ONLY ONE ×2 (13:39→13:59)
[2017-08-11] MEDS: KETOROLAC TROMETHAMINE 30 MG/ML (IVP) VIAL IVP SCH ×3 (13:41→22:56)
--- NOTE | 2017-08-11 14:14 | PD.CONS ---
[facility] By [facility] Care Physician Non-Staff Diagnoses: History of Present Illness Mrs. Goncalves is a 77 year old female. She is here secondary to a left knee replacement surgery. She has a history of osteoarthritis and has had a right knee replacement surgery. Presently she is seen post op and she is doing well. She has already worked with PT. Schizophrenia is present at baseline but is not decompensated now and this has not been a problem recently. No other complaints. Pain and Nausea are not uncontrolled when seen. Review of Systems Constitutional: DENIES: Fatigue, Fever, Chills Eyes: DENIES: Diplopia, Eye inflammation, Eye pain Ears, nose, mouth, throat: DENIES: Hearing loss, Vertigo, Nasal discharge Respiratory: DENIES: Cough, Wheezing, Shortness of breath Cardiovascular: DENIES: Chest pain, Palpitations, Syncope Gastrointestinal: DENIES: Abdominal pain, Black stools, Bloody stools Musculoskeletal: COMPLAINS OF: Joint pain, Stiffness, Joint Swelling Integumentary: DENIES: Abnormal pigmentation, Pruritus, Rash, Nail changes Hematologic/lymphatic: DENIES: Bruising, Lymphadenopathy Immunologic/allergic: DENIES: Eczema, Urticaria Neurologic: DENIES: Abnormal gait, Headache, Paresthesias Psychiatric: DENIES: Anxiety, Confusion, Hallucinations Past Family Social History Allergies: Coded Allergies: No Known Allergies (Unverified , 07/08/16) Past Medical History Hypertension Osteoarthritis Schizophrenia Sleep apnea Past Surgical History Vulvectomy Hysterectomy Bilateral cataract surgery Reported Medications Reported Meds & Active Scripts Active Hydrocodone-Acetamin 7.5-325 (Hydrocodone/Acetaminophen) 7.5 Mg-325 Mg Tablet 1 Tab PO Q4H PRN Protonix (Pantoprazole Sodium) 40 Mg Tab 40 Mg PO DAILY Multi For Her (Multiple Vitamins W/ Minerals) 1 Tab Tab 100 Units PO DAILY Mobic (Meloxicam) 15 Mg Tab 15 Mg PO DAILY Reported Paroxetine (Paroxetine HCl) 40 Mg Tab 40 Mg PO DAILY Vitamin D3 (Cholecalciferol) 1,000 Unit Tab 1,000 Units PO DAILY Haloperidol 1 Mg Tab 1 Mg PO DAILY Pravastatin 20 Mg Tab 20 Mg PO HS Aspirin DR (Aspirin) 81 Mg Tabdr 81 Mg PO DAILY Losartan (Losartan Potassium) 25 Mg Tab 25 Mg PO DAILY Vitamin E (Vitamin E Acetate) 400 Unit Capsule 400 Cap PO DAILY Vitamin C ER (Ascorbic Acid) 500 Mg Torres 500 Mg PO DAILY Calcium Citrate 250 Mg Tab Unknown Dose PO DAILY Active Ordered Medications Administered Medications Medications (Trade) Dose Ordered Sig/Dianne Route PRN Reason Start Time Stop Time Status Last Admin Dose Admin Lactated Ringer's 1,000 ml @ 30 mls/hr Q24H PRN IV SEE LABEL COMMENTS 08/11/17 08:15 08/14/17 08:14 08/11/17 08:50 Povidone Iodine (Betadine 5% Antisepsis Kit) 1 applic RUNNER OUT PRN EACH NARE SEE LABEL COMMENTS 08/11/17 08:15 08/14/17 08:14 08/11/17 08:49 Chlorhexidine Gluconate (Chlorhexidine 2% Cloth) 3 pack RUNNER OUT PRN TOPICAL SEE LABEL COMMENTS 08/11/17 08:15 08/14/17 08:14 08/11/17 08:48 Povidone Iodine (Betadine 7.5% Scrub) 1 applic ONCE TOPICAL 08/11/17 08:15 08/14/17 08:14 08/11/17 08:48 Tranexamic Acid 914 mg/Sodium Chloride 109.14 ml @ 200 mls/ hr ONCE IV 08/11/17 09:00 08/11/17 15:00 08/11/17 10:43 Tranexamic Acid 914 mg/Sodium Chloride 109.14 ml @ 200 mls/ hr ONCE IV 08/11/17 12:00 08/11/17 18:00 08/11/17 13:25 Bupivacaine Liposome 20 ml/ Sodium Chloride 100 ml @ 200 mls/hr ONCE P-ARTICULR 08/11/17 09:00 08/11/17 15:00 08/11/17 11:00 Lactated Ringer's 1,000 ml @ 80 mls/hr [id number] IV 08/11/17 10:00 08/11/17 13:20 Ketorolac Tromethamine (Toradol Inj) 15 mg Q6H IVP 08/11/17 11:00 08/13/17 05:01 08/11/17 13:41 Family History Heart disease Social History Patient denies alcohol, tobacco, or illicit drug use. Physical Exam Vital Signs Vital Signs Date Time Temp Pulse Resp B/P (MAP) Pulse Ox O2 Delivery O2 Flow Rate FiO2 08/11/17 14:00 72 15 133/63 (86) 98 Nasal Cannula 2 08/11/17 13:45 77 16 148/66 (93) 100 Nasal Cannula 2 08/11/17 13:30 74 16 154/61 (92) 100 Nasal Cannula 2 08/11/17 13:15 78 22 135/60 (85) 99 Nasal Cannula 2 08/11/17 13:07 98.0 79 20 133/59 (83) 98 Simple Mask 6 08/11/17 08:39 99.1 104 20 145/70 (95) 98 Physical Exam GENERAL: NAD, A&Ox3 HEAD: Normocephalic. NECK: Supple, trachea midline. No lymphadenopathy. EYES: No scleral icterus. No injection or drainage. CARDIOVASCULAR: Regular rate and rhythm without murmurs, gallops, or rubs. RESPIRATORY: Breath sounds equal bilaterally. No accessory muscle use. GASTROINTESTINAL: Abdomen soft, non-tender, nondistended. MUSCULOSKELETAL: No cyanosis, or edema. Left knee is bandaged and in mobilizer SKIN: Warm and dry. NEURO: No focal neurological deficitis. Laboratory Laboratory Tests Test 08/11/17 09:17 White Blood Count 7.9 Red Blood Count 4.82 Hemoglobin 14.7 Hematocrit 42.0 Mean Corpuscular Volume 87.2 Mean Corpuscular Hemoglobin 30.5 Mean Corpuscular Hemoglobin Concent 35.0 Red Cell Distribution Width 13.8 Platelet Count 162 Mean Platelet Volume 7.7 Neutrophils (%) (Auto) 53.0 Lymphocytes (%) (Auto) 35.1 Monocytes (%) (Auto) 10.2 Eosinophils (%) (Auto) 1.2 Basophils (%) (Auto) 0.5 Neutrophils # (Auto) 4.2 Lymphocytes # (Auto) 2.8 Monocytes # (Auto) 0.8 Eosinophils # (Auto) 0.1 Basophils # (Auto) 0.0 CBC Comment AUTO DIFF Differential Comment AUTO DIFF CONFIRMED Platelet Estimate NORMAL Platelet Morphology Comment NORMAL Result Diagram: 08/11/17916 Assessment and Plan Problem List: (1) Primary osteoarthritis of left knee ICD Code: M17.12 - Unilateral primary osteoarthritis, left knee (2) Sleep apnea ICD Code: G47.30 - Sleep apnea, unspecified Status: Chronic (3) Hypertension ICD Code: I10 - Essential (primary) hypertension Status: Chronic (4) Primary osteoarthritis of right knee ICD Code: M17.11 - Unilateral primary osteoarthritis, right knee Status: Chronic (5) SCHIZOPHRENIA NOS-UNSPEC Status: Acute (6) Schizophrenia ICD Code: F20.9 - Schizophrenia Status: Chronic Assessment and Plan 77-year-old female admitted secondary to elective left knee arthroplasty Osteoarthritis Status post left knee arthroplasty Continue bed rest for now Ortho following Physical therapy planned Continue pain treatments as needed Check H&H in a.m. Hypertension Continue baseline treatment Follow blood pressures Adjust treatments as needed Hyperlipidemia Statin continued Follow Lipid Profile with PCP as an outpatient Schizophrenia Continue baseline treatments (Haldol) Follow clinically Sleep apnea Follow vitals at night DVT prophylaxis Per discretion of surgeon Emmanuel Hastings MD Aug 11, 2017 14:14
--- NOTE | 2017-08-11 15:19 | RADRPT ---
EXAM DATE/TIME: 08/11/2017 14:16 [facility] COMPARISON: No previous studies available for comparison. INDICATIONS : Post-op total left knee arthroplasty. MEDICAL HISTORY : None. SURGICAL HISTORY : None. ENCOUNTER: Initial ACUITY: 1 day PAIN SCORE: Non-responsive. LOCATION: Left knee. FINDINGS: Left total knee arthroplasty is noted in good position. No acute fracture or dislocation is noted. CONCLUSION: Status post left total knee arthroplasty with prosthesis in good position. Robert Smith MD on August 11, 2017 at 15:15 Board Certified Radiologist. This report was verified electronically.
[2017-08-11] MEDS: ACETAMINOPHEN/HYDROcodone 325 MG/7.5 MG TAB PO PRN ×2 (18:34→22:56)
[2017-08-11 20:00] VITALS: BP 131/62; PULSE 87; RESP 18; TEMP 97.8; O2SAT 97
[2017-08-11] MEDS ORDERED: MEMA1TAB PO (21:29)
[2017-08-11] MEDS: PRAVASTATIN SOD 20 MG TAB PO SCH (21:42)
[2017-08-11] MEDS: ASPIRIN EC 81 MG TABEC PO SCH (21:42)
[2017-08-11] MEDS ORDERED: HALOPERIDOL 1 MG TAB PO ONE (22:15)
[2017-08-12] VITALS: BP 100/47; PULSE 95; RESP 18; TEMP 97.8; O2SAT 94
[2017-08-12 04:00] VITALS: BP 105/55; PULSE 85; RESP 18; TEMP 97.8; O2SAT 94
[2017-08-12] MEDS: KETOROLAC TROMETHAMINE 30 MG/ML (IVP) VIAL IVP SCH ×3 (05:06→17:48)
--- NOTE | 2017-08-12 05:56 | PD.ORT.PN ---
Subjective Post Op Day #: 1 Subjective Remarks She is doing relatively well. She does indicate that she had some pain in the knee. Range of Motion 20 extension lag to 86 of flexion, supine on stretcher in PACU. Distance Walked 6 feet around her stretcher in PACU. Objective Vitals Vital Signs Date Time Temp Pulse Resp B/P (MAP) Pulse Ox O2 Delivery O2 Flow Rate FiO2 08/12/17 04:00 97.8 85 18 105/55 (72) 94 08/12/17 00:00 97.8 95 18 100/47 (64) 94 08/11/17 20:00 97.8 87 18 131/62 (85) 97 08/11/17 17:15 90 Nasal Cannula 2 08/11/17 17:00 98.7 85 22 124/67 (86) 99 Room Air 08/11/17 16:00 88 22 118/58 (78) 99 Nasal Cannula 2 08/11/17 15:00 83 22 133/60 (84) 99 Nasal Cannula 2 08/11/17 14:00 72 15 133/63 (86) 98 Nasal Cannula 2 08/11/17 13:45 77 16 148/66 (93) 100 Nasal Cannula 2 08/11/17 13:30 74 16 154/61 (92) 100 Nasal Cannula 2 08/11/17 13:15 78 22 135/60 (85) 99 Nasal Cannula 2 08/11/17 13:07 98.0 79 20 133/59 (83) 98 Simple Mask 6 08/11/17 08:39 99.1 104 20 145/70 (95) 98 I/O 08/11/17 08/11/17 08/11/17 08/12/17 08/12/17 08/12/17 07:00 15:00 23:00 07:00 15:00 23:00 Intake Total 1600 ml 472 ml 490 ml Output Total 330 ml 50 ml 80 ml Balance 1270 ml 422 ml 410 ml Intake Oral 100 ml 490 ml IV Total 1600 ml 372 ml Output Drainage Total 130 ml 50 ml 80 ml Estimated Blood Loss 200 ml # Voids 1 1 # Bowel Movements 0 Result Diagram: 08/11/17916 Imaging Last 24 hours Impressions Knee X-Ray 08/11/17946 Signed Impressions: Service Date/Time: Friday, August 11, 2017 14:16 - CONCLUSION: Status post left total knee arthroplasty with prosthesis in good position. Robert Smith MD Objective Remarks She is resting comfortably, supine in bed in the CPM. The dressing is dry and intact. The neurovascular status of the lower extremity is intact. Assessment & Plan Ortho Post Op Day #: 1 Problem List: (1) Primary osteoarthritis of left knee ICD Codes: M17.12 - Unilateral primary osteoarthritis, left knee Status: Resolved (2) Status post total left knee replacement ICD Codes: Z96.652 - Presence of left artificial knee joint Plan: Continue postop care and PT. I have discussed the findings and procedure with her. Assessment and Plan Condition: Good. Orthopedically stable. DVT prophylaxis: Sequentials, MAXWELL stockings, aspirin 81 mg twice daily. Discharge plans: Home with home health care. An appointment was scheduled through the office. Prescriptions: [place] 7.5/325 Salo Mari MD (Charles) Aug 12, 2017 05:56
--- NOTE | 2017-08-12 06:47 | HHI.DS ---
Discharge Summary Admission Date Aug 11, 2017 at 07:41 Discharge Date: Aug 17, 2017 Admitting Diagnosis Primary osteoarthritis, left knee. Diagnosis: (1) Primary osteoarthritis of left knee ICD Codes: M17.12 - Unilateral primary osteoarthritis, left knee Status: Resolved (2) Status post total left knee replacement ICD Codes: Z96.652 - Presence of left artificial knee joint (3) Hypertension Diagnosis: Secondary ICD Codes: I10 - Essential (primary) hypertension Status: Chronic (4) Sleep apnea Diagnosis: Secondary ICD Codes: G47.30 - Sleep apnea, unspecified Status: Chronic (5) Schizophrenia Diagnosis: Secondary ICD Codes: F20.9 - Schizophrenia Status: Chronic Procedures Left total knee arthroplasty using Monster Triathlon prosthesis (uncemented) on 08/11/2017. Brief History This is a 77 year old female patient has had long-standing pain in her left knee secondary to known osteoarthritis. She has not responded to conservative measures including anti-inflammatory agents, analgesics, the use of external supports and exercise. She complains of pain ambulating, difficulty standing from a seated position and pain with steps. Physical findings show degenerative varum with medial laxity, medial pain and tenderness on motion with an antalgic gait. X-rays showed degenerative change in the knee particularly in the medial compartment with loss of articular space, tricompartmental osteophytes and eburnation. CBC/BMP: 08/11/17 0917 Significant Findings Laboratory Tests Test 08/11/17 09:17 Monocytes (%) (Auto) 10.2 % (0.0-8.0) Imaging Last 72 hours Impressions Knee X-Ray 08/11/17 0996 Signed Impressions: Service Date/Time: Friday, August 11, 2017 14:16 - CONCLUSION: Status post left total knee arthroplasty with prosthesis in good position. Robert Smith MD PE at Discharge She is resting comfortably, supine in bed, in the CPM. The dressing is dry and intact. The neurovascular status of the lower extremity is intact. Transfer Summary This 77-year-old woman has had a left total knee arthroplasty. Range of motion in the operating room was 0 extension to 120 of flexion which is the recommended physical therapy range of motion goal. The dressing is is Dermabond Prine[place]. This should remain on place a minimum of 2 weeks. She is not to have the knee immersed. Protection from direct water in a shower would be appropriate. Post facility physical therapy would be recommended with a home health agency. On office made arrangements for [facility]. Hospital Course The patient was admitted as noted above. The above noted operative procedure was carried out that day. Preoperatively prophylactic antibiotics were administered Ancef according to protocol. These were continued postoperatively. The patient also received tranexamic acid to help with hemostasis according to protocol. In the postanesthesia care unit a continuous passive motion device was initiated. Also initiated were mechanical methods of DVT prophylaxis in the form of MAXWELL stockings and sequentials. Physical therapy was initiated on the day of surgery. She was able to walk 6 feet in PACU. On postoperative day #1 physical therapy continued. The use of the continuous passive motion device continued. DVT prophylaxis with aspirin 81 mg was initiated at this time. The patient continued physical therapy throughout the hospitalization. The distance walked and range of motion improved throughout the hospitalization. She walked 60 feet in the morning and 80 feet in the afternoon on postoperative day #1. On postoperative day 2, she walked 40 feet with physical therapy according to their notes. She attended the class. Her daughter indicated to the nursing staff that she did not feel that the patient was ready to go home. Arrangements were made for an additional day of stay and for eventual [place] [facility] [place] [facility]. The office and the hospital and had made arrangements for her to have home health care with [facility]. The patient was to be discharged on postoperative day 3 with the disposition being to a [place] [facility] [place], [facility]. An appointment for follow-up was made prior to admission. On postoperative day 4, when the patient had already been scheduled to be discharged, and she had stayed overnight again. Apparently she had been started on a medication (Paxil) postoperatively that was within her reconciliation records preoperatively. She was not taking this at home. This was discontinued. Consultation with the hospitalist was reentered. The patient did improve during the subsequent days and was subsequently discharged as previously planned. She still has a follow-up appointment. Pt Condition on Discharge: Good Discharge Disposition: Disch w/ Home Health Serv Discharge Instructions Diet Instructions: As Tolerated, No Restrictions Activities You Can Perform: Full Weight Bearing, Shower Only-No Bath Activities to Avoid: Lifting/Bending, Strenuous Activity, Bathing, Driving Follow up Referrals: Orthopedics with Salo Mari MD ([place]) New Medications: Aspirin DR (Aspirin DR) 81 Mg Tabdr 81 MG PO BID for Prevent Blood Clot for 30 Days, #60 TAB Hydrocodone/Acetaminophen (Hydrocodone-Acetamin 7.5-325) 7.5 Mg-325 Mg Tablet 1 TAB PO Q4H PRN for PAIN SCALE 1 TO 10, #30 TAB Continued Medications: Ascorbic Acid ER (Vitamin C ER) 500 Mg Torres 500 MG PO DAILY for Nutritional Supplement, TAB 0 Refills Calcium Citrate (Calcium Citrate) 250 Mg Tab Unknown Dose PO DAILY for Calcium Supplement, TAB 0 Refills Cholecalciferol (Vitamin D3) 1,000 Unit Tab 1000 UNITS PO DAILY for Nutritional Supplement, #1 BOTTLE 0 Refills Fluticasone Nasal [place] (Fluticasone Nasal [place]) 50 Mcg/Act Naspr 50 MCG EACH NARE DAILY for Allergy Management, #1 BOTTLE 0 Refills 50 mcg/spray Haloperidol (Haloperidol) 1 Mg Tab 1 MG PO BID, TAB 0 Refills Loratadine (Claritin) 10 Mg Cap 10 MG PO DAILY for Allergy Management, CAP 0 Refills Losartan (Losartan) 100 Mg Tab 100 MG PO DAILY for Blood Pressure Management, #30 TAB 0 Refills Meclizine (Meclizine) 25 Mg Tab 25 MG PO DIRECTED PRN for VERTIGO, TAB 0 Refills Meloxicam (Mobic) 15 Mg Tab 15 MG PO DAILY for Arthritis pain, #30 TAB 0 Refills Memantine (Memantine) 5 Mg Tab 5 MG PO DAILY for Alzheimer's Dementia, TAB 0 Refills Multiple Vitamins W/ Minerals (Multi For Her) 1 Tab Tab 100 UNITS PO DAILY for health, #30 Pantoprazole (Protonix) 40 Mg Tab 40 MG PO DAILY for Ulcer Prevention, #30 TAB 0 Refills Pravastatin (Pravastatin) 20 Mg Tab 20 MG PO HS for Cholesterol Management, #30 TAB 0 Refills Vitamin E Acetate (Vitamin E) 400 Unit Capsule 400 CAP PO DAILY for Nutritional Supplement Discontinued Medications: Aspirin DR (Aspirin DR) 81 Mg Tabdr 81 MG PO DAILY, TAB 0 Refills Benztropine (Benztropine) 0.5 Mg Tab 1 MG PO HS, #30 TAB 0 Refills Paroxetine (Paroxetine) 40 Mg Tab 40 MG PO DAILY, #30 TAB 0 Refills Salo Mari MD ([place]) Aug 12, 2017 06:47
[2017-08-12 07:16] LABS: AUTOMATED NEUTROPHIL # 7.7 TH/MM3 (1.8-7.7); BASOPHIL % 0.2 % (0.0-2.0); EOSINOPHIL % 0.1 % (0.0-4.0); HEMATOCRIT 33.9 % (35.0-46.0); HEMOGLOBIN 11.7 GM/DL (11.6-15.3); LYMPH % 20.5 % (9.0-44.0); LYMPHOCYTE # 2.2 TH/MM3 (1.0-4.8); MEAN CELL VOLUME 86.9 FL (80.0-100.0); MEAN CORPUSCULAR HEMOGLOBIN 30.1 PG (27.0-34.0); MEAN CORPUSCULAR HGB CONC 34.6 % (32.0-36.0); MEAN PLATELET VOLUME 7.3 FL (7.0-11.0); NEUT % 70.2 % (16.0-70.0); PLATELET COUNT 159 TH/MM3 (150-450); RED CELL DISTRIBUTION WIDTH 13.8 % (11.6-17.2)
[2017-08-12 07:38] LABS: ALKALINE PHOSPHATASE 66 U/L (45-117); TOTAL BILIRUBIN ADULT 0.4 MG/DL (0.2-1.0)
[2017-08-12 07:40] LABS: ALBUMIN 3.1 GM/DL (3.4-5.0); ALT (GPT) 30 U/L (10-53); AST (GOT) 34 U/L (15-37); BICARBONATE 25.7 MEQ/L (21.0-32.0); BLOOD UREA NITROGEN 21 MG/DL (7-18); CALCIUM 8.5 MG/DL (8.5-10.1); CHLORIDE 107 MEQ/L (98-107); CREATININE 1.08 MG/DL (0.50-1.00); GLOMERULAR FILTRATION RATE 49 ML/MIN (>89); GLUCOSE,RANDOM 106 MG/DL (74-106); SODIUM (NA) 140 MEQ/L (136-145)
[2017-08-12 08:00] VITALS: BP 125/59; PULSE 92; RESP 18; TEMP 97.9; O2SAT 99
--- NOTE | 2017-08-12 08:24 | HHI.PR ---
Subjective Remarks Hgb stable, post op. Vitals under control. Continue baseline medications for HTN and Schizophrenia at discharge. Medically clear for discharge today. Objective Vitals Vital Signs Date Time Temp Pulse Resp B/P (MAP) Pulse Ox O2 Delivery O2 Flow Rate FiO2 08/12/17 04:00 97.8 85 18 105/55 (72) 94 08/12/17 00:00 97.8 95 18 100/47 (64) 94 08/11/17 20:00 97.8 87 18 131/62 (85) 97 08/11/17 17:15 90 Nasal Cannula 2 08/11/17 17:00 98.7 85 22 124/67 (86) 99 Room Air 08/11/17 16:00 88 22 118/58 (78) 99 Nasal Cannula 2 08/11/17 15:00 83 22 133/60 (84) 99 Nasal Cannula 2 08/11/17 14:00 72 15 133/63 (86) 98 Nasal Cannula 2 08/11/17 13:45 77 16 148/66 (93) 100 Nasal Cannula 2 08/11/17 13:30 74 16 154/61 (92) 100 Nasal Cannula 2 08/11/17 13:15 78 22 135/60 (85) 99 Nasal Cannula 2 08/11/17 13:07 98.0 79 20 133/59 (83) 98 Simple Mask 6 08/11/17 08:39 99.1 104 20 145/70 (95) 98 I/O 08/11/17 08/11/17 08/11/17 08/12/17 08/12/17 08/12/17 07:00 15:00 23:00 07:00 15:00 23:00 Intake Total 1600 ml 472 ml 490 ml Output Total 330 ml 50 ml 80 ml Balance 1270 ml 422 ml 410 ml Intake Oral 100 ml 490 ml IV Total 1600 ml 372 ml Output Drainage Total 130 ml 50 ml 80 ml Estimated Blood Loss 200 ml # Voids 1 1 # Bowel Movements 0 Result Diagram: 08/12/1720 08/12/17 0620 A/P Problem List: (1) Primary osteoarthritis of left knee ICD Code: M17.12 - Unilateral primary osteoarthritis, left knee Status: Resolved Plan: Follow with Ortho (2) Sleep apnea ICD Code: G47.30 - Sleep apnea, unspecified Status: Chronic Plan: Resume home treatments (3) Hypertension ICD Code: I10 - Essential (primary) hypertension Status: Chronic Plan: Resume home treatments (4) Primary osteoarthritis of right knee ICD Code: M17.11 - Unilateral primary osteoarthritis, right knee Status: Chronic (5) SCHIZOPHRENIA NOS-UNSPEC Status: Acute (6) Schizophrenia ICD Code: F20.9 - Schizophrenia Status: Chronic Plan: Resume home treatments Assessment and Plan Medically clear for discharge home today. Emmanuel Hastings MD Aug 12, 2017 08:24
[2017-08-12] MEDS: MEMANTINE HCL 5 MG TAB PO SCH (09:00)
[2017-08-12] MEDS ORDERED: NON-FORMULARY DRUG (Ascorbic Acid ER (Vitamin C ER) 500 MG) PO SCH (09:00)
[2017-08-12] MEDS: HALOPERIDOL 1 MG TAB PO SCH (09:10)
[2017-08-12] MEDS: VITAMIN E 400 UNIT CAP PO SCH (09:10)
[2017-08-12] MEDS: MULTIVITAMINS/MINERALS THERAPEUTIC TAB PO SCH (09:10)
[2017-08-12] MEDS: LOSARTAN 25 MG TAB PO SCH (09:10)
[2017-08-12] MEDS: PARoxetine HCL 20 MG TAB PO SCH (09:11)
[2017-08-12] MEDS: PANTOPRAZOLE SOD 40 MG DELAYED RELEASE TAB PO SCH (09:11)
[2017-08-12] MEDS: ASPIRIN EC 81 MG TABEC PO SCH ×2 (09:11→20:49)
[2017-08-12] MEDS: CHOLECALCIFEROL (VIT D3) 1000 UNIT TAB PO SCH (09:11)
[2017-08-12] MEDS: ACETAMINOPHEN/HYDROcodone 325 MG/7.5 MG TAB PO PRN ×4 (10:30→22:15)
[2017-08-12] MEDS: LACTATED RINGER'S 1000 ML INJ 1,000 ML IV SCH ×2 (11:00→22:18)
[2017-08-12 12:00] VITALS: BP 130/63; PULSE 98; RESP 18; TEMP 97.8; O2SAT 97
[2017-08-12 16:00] VITALS: BP 139/64; PULSE 99; RESP 17; TEMP 97.6; O2SAT 92
[2017-08-12 18:55] VITALS: BP 134/60; PULSE 97; RESP 18; TEMP 98.7; O2SAT 91
[2017-08-12] MEDS: PRAVASTATIN SOD 20 MG TAB PO SCH (20:49)
[2017-08-12] MEDS: DOCUSATE SODIUM 100 MG CAP PO SCH (20:49)
[2017-08-13 00:25] VITALS: BP 139/53; PULSE 88; RESP 18; TEMP 98.7; O2SAT 93
[2017-08-13 04:35] VITALS: BP 162/70; PULSE 85; RESP 18; TEMP 98.6; O2SAT 93
[2017-08-13] MEDS: KETOROLAC TROMETHAMINE 30 MG/ML (IVP) VIAL IVP SCH (05:00)
--- NOTE | 2017-08-13 06:15 | PD.ORT.PN ---
Subjective Post Op Day #: 2 Subjective Remarks She is doing well. She has some pain in the knee. Range of Motion 0 extension to 88 of flexion. Distance Walked 60 feet in the morning and 80 feet in the afternoon with physical therapy. Objective Vitals Vital Signs Date Time Temp Pulse Resp B/P (MAP) Pulse Ox O2 Delivery O2 Flow Rate FiO2 08/13/17 04:35 98.6 85 18 162/70 (100) 93 08/13/17 00:25 98.7 88 18 139/53 (81) 93 08/12/17 18:55 98.7 97 18 134/60 (84) 91 08/12/17 16:00 97.6 99 17 139/64 (89) 92 08/12/17 12:00 97.8 98 18 130/63 (85) 97 08/12/17 08:00 97.9 92 18 125/59 (81) 99 I/O 08/12/17 08/12/17 08/12/17 08/13/17 08/13/17 08/13/17 07:00 15:00 23:00 07:00 15:00 23:00 Intake Total 490 ml 600 ml Output Total 80 ml Balance 410 ml 600 ml Intake Oral 490 ml 600 ml Output Drainage Total 80 ml # Voids 1 3 # Bowel Movements 0 0 Result Diagram: 08/12/17 0620 08/12/17 0620 Imaging Last 24 hours Impressions Knee X-Ray 08/11/17 0947 Signed Impressions: Service Date/Time: Friday, August 11, 2017 14:16 - CONCLUSION: Status post left total knee arthroplasty with prosthesis in good position. Robert Smith MD Procedures Left total knee arthroplasty using Monster Triathlon prosthesis (uncemented) on 08/11/2017. Objective Remarks She is sitting out of bed in the chair. The dressing is dry and intact. The neurovascular status of the lower extremity is intact. Assessment & Plan Ortho Post Op Day #: 2 Problem List: (1) Primary osteoarthritis of left knee ICD Codes: M17.12 - Unilateral primary osteoarthritis, left knee Status: Resolved (2) Status post total left knee replacement ICD Codes: Z96.652 - Presence of left artificial knee joint Plan: Continue postop care and PT. We have briefly discussed her progress. (3) Hypertension ICD Codes: I10 - Essential (primary) hypertension Status: Chronic (4) Sleep apnea ICD Codes: G47.30 - Sleep apnea, unspecified Status: Chronic (5) Schizophrenia ICD Codes: F20.9 - Schizophrenia Status: Chronic Assessment and Plan Condition: Good. Orthopedically stable. DVT prophylaxis: Sequentials, MAXWELL stockings, aspirin 81 mg twice daily. Discharge plans: Home with home health care. An appointment was scheduled through the office. Prescriptions: [place] 7.5/325 Salo Mari MD ([place]) Aug 13, 2017 06:15
[2017-08-13 07:57] LABS: HEMATOCRIT 33.2 % (35.0-46.0); HEMOGLOBIN 11.5 GM/DL (11.6-15.3)
[2017-08-13 08:00] VITALS: BP 139/68; PULSE 111; RESP 17; TEMP 98; O2SAT 96
[2017-08-13] MEDS: MEMANTINE HCL 5 MG TAB PO SCH (08:48)
[2017-08-13] MEDS: CHOLECALCIFEROL (VIT D3) 1000 UNIT TAB PO SCH (08:48)
[2017-08-13] MEDS: PARoxetine HCL 20 MG TAB PO SCH (08:48)
[2017-08-13] MEDS: MULTIVITAMINS/MINERALS THERAPEUTIC TAB PO SCH (08:48)
[2017-08-13] MEDS: ACETAMINOPHEN/HYDROcodone 325 MG/7.5 MG TAB PO PRN ×4 (08:49→20:49)
[2017-08-13] MEDS: LOSARTAN 25 MG TAB PO SCH (08:49)
[2017-08-13] MEDS: PANTOPRAZOLE SOD 40 MG DELAYED RELEASE TAB PO SCH (08:49)
[2017-08-13] MEDS: HALOPERIDOL 1 MG TAB PO SCH (08:49)
[2017-08-13] MEDS: ASPIRIN EC 81 MG TABEC PO SCH ×2 (08:49→20:46)
[2017-08-13] MEDS: DOCUSATE SODIUM 100 MG CAP PO SCH ×2 (08:49→20:47)
[2017-08-13] MEDS: MAGNESIUM HYDROXIDE SUSP 30 ML CUP PO PRN (08:50)
[2017-08-13] MEDS: LACTATED RINGER'S 1000 ML INJ 1,000 ML IV SCH (08:55)
[2017-08-13] MEDS: VITAMIN E 400 UNIT CAP PO SCH (10:53)
[2017-08-13 12:00] VITALS: BP 127/61; PULSE 95; RESP 18; TEMP 98.6; O2SAT 95
[2017-08-13 15:45] VITALS: BP 117/61; PULSE 99; RESP 19; TEMP 98.1; O2SAT 95
[2017-08-13 20:00] VITALS: BP 153/69; PULSE 101; RESP 17; TEMP 97.9; O2SAT 96
[2017-08-13] MEDS: PRAVASTATIN SOD 20 MG TAB PO SCH (20:47)
[2017-08-14] VITALS: BP 134/67; PULSE 86; RESP 17; TEMP 98.8; O2SAT 95
[2017-08-14] MEDS: LACTATED RINGER'S 1000 ML INJ 1,000 ML IV SCH ×2 (00:39→09:32)
[2017-08-14] MEDS: ACETAMINOPHEN/HYDROcodone 325 MG/7.5 MG TAB PO PRN ×4 (02:58→20:11)
[2017-08-14 04:00] VITALS: BP 132/75; PULSE 95; RESP 18; TEMP 98.9; O2SAT 95
--- NOTE | 2017-08-14 06:33 | PD.ORT.PN ---
Subjective Post Op Day #: 3 Subjective Remarks She is doing well. She has some pain in the knee. She and her daughter do not think that she is walking well enough to go home with home health care. They would like [facility] facility placement. Range of Motion 0 extension to 86 of flexion. Distance Walked 40 feet with physical therapy. Objective Vitals Vital Signs Date Time Temp Pulse Resp B/P (MAP) Pulse Ox O2 Delivery O2 Flow Rate FiO2 08/14/17 04:00 98.9 95 18 132/75 (94) 95 08/14/17 00:00 98.8 86 17 134/67 (89) 95 08/13/17 20:00 97.9 101 17 153/69 (97) 96 08/13/17 15:45 98.1 99 19 117/61 (79) 95 08/13/17 12:00 98.6 95 18 127/61 (83) 95 08/13/17 08:00 98.0 111 17 139/68 (91) 96 I/O 08/13/17 08/13/17 08/13/17 08/14/17 08/14/17 08/14/17 07:00 15:00 23:00 07:00 15:00 23:00 Intake Total 360 ml 850 ml 160 ml Output Total 1 ml Balance 359 ml 850 ml 160 ml Intake Oral 360 ml 850 ml 160 ml Output Urine Total 1 ml # Voids 3 1 # Bowel Movements 0 0 0 Result Diagram: 08/13/17 0710 08/12/17 0620 Imaging Last 24 hours Impressions Knee X-Ray 08/11/17 0947 Signed Impressions: Service Date/Time: Friday, August 11, 2017 14:16 - CONCLUSION: Status post left total knee arthroplasty with prosthesis in good position. Robert Smith MD Procedures Left total knee arthroplasty using Monster Triathlon prosthesis (uncemented) on 08/11/2017. Objective Remarks Resting comfortably, supine in bed in the CPM. The dressing is dry and intact. There is a small blood spot in the midst dressing. The neurovascular status of the lower extremity is intact. Assessment & Plan Ortho Post Op Day #: 3 Problem List: (1) Primary osteoarthritis of left knee ICD Codes: M17.12 - Unilateral primary osteoarthritis, left knee Status: Resolved (2) Status post total left knee replacement ICD Codes: Z96.652 - Presence of left artificial knee joint Plan: Continue postop care and PT. We have briefly discussed her progress. (3) Hypertension ICD Codes: I10 - Essential (primary) hypertension Status: Chronic (4) Sleep apnea ICD Codes: G47.30 - Sleep apnea, unspecified Status: Chronic (5) Schizophrenia ICD Codes: F20.9 - Schizophrenia Status: Chronic Assessment and Plan Condition: Good. Orthopedically stable. DVT prophylaxis: Sequentials, MAXWELL stockings, aspirin 81 mg twice daily. Discharge plans: alf facility, [facility]. An appointment was scheduled through the office. Prescriptions: [place] 7.5/325 Salo Mari MD ([place]) Aug 14, 2017 06:33
[2017-08-14 07:58] VITALS: BP 120/79; PULSE 95; RESP 19; TEMP 98; O2SAT 97
[2017-08-14] MEDS: VITAMIN E 400 UNIT CAP PO SCH (09:31)
[2017-08-14] MEDS: HALOPERIDOL 1 MG TAB PO SCH (09:31)
[2017-08-14] MEDS: MAGNESIUM HYDROXIDE SUSP 30 ML CUP PO PRN (09:31)
[2017-08-14] MEDS: PANTOPRAZOLE SOD 40 MG DELAYED RELEASE TAB PO SCH (09:31)
[2017-08-14] MEDS: PARoxetine HCL 20 MG TAB PO SCH (09:31)
[2017-08-14] MEDS: MULTIVITAMINS/MINERALS THERAPEUTIC TAB PO SCH (09:32)
[2017-08-14] MEDS: CHOLECALCIFEROL (VIT D3) 1000 UNIT TAB PO SCH (09:32)
[2017-08-14] MEDS: DOCUSATE SODIUM 100 MG CAP PO SCH ×2 (09:32→20:10)
[2017-08-14] MEDS: MEMANTINE HCL 5 MG TAB PO SCH (09:32)
[2017-08-14] MEDS: ASPIRIN EC 81 MG TABEC PO SCH ×2 (09:32→20:10)
[2017-08-14] MEDS: LOSARTAN 25 MG TAB PO SCH (09:32)
[2017-08-14 11:35] VITALS: BP 98/50; PULSE 95; RESP 18; TEMP 97.1; O2SAT 96
[2017-08-14 16:10] VITALS: BP 157/71; PULSE 96; RESP 17; TEMP 98.2; O2SAT 96
[2017-08-14 20:00] VITALS: BP 160/70; PULSE 95; RESP 18; TEMP 99; O2SAT 95
[2017-08-14] MEDS: PRAVASTATIN SOD 20 MG TAB PO SCH (20:10)
[2017-08-14] MEDS ORDERED: BENZ0.5T PO (20:18)
[2017-08-14] MEDS ORDERED: BENZTROPINE MESYLATE 1 MG TAB PO SCH (21:00)
[2017-08-15] VITALS (7 sets, daily range): BP systolic 138–171; BP diastolic 63–74; PULSE 83–95; RESP 16–18; TEMP 98.2–99.3; O2SAT 94–96
[2017-08-15] MEDS: LACTATED RINGER'S 1000 ML INJ 1,000 ML IV SCH ×3 (01:30→21:34)
[2017-08-15] MEDS: ACETAMINOPHEN/HYDROcodone 325 MG/7.5 MG TAB PO PRN ×4 (03:39→21:26)
[2017-08-15] MEDS: PANTOPRAZOLE SOD 40 MG DELAYED RELEASE TAB PO SCH (08:17)
[2017-08-15] MEDS: MAGNESIUM HYDROXIDE SUSP 30 ML CUP PO PRN (08:17)
[2017-08-15] MEDS: ASPIRIN EC 81 MG TABEC PO SCH ×2 (08:17→21:16)
[2017-08-15] MEDS: CHOLECALCIFEROL (VIT D3) 1000 UNIT TAB PO SCH (08:18)
[2017-08-15] MEDS: LOSARTAN 25 MG TAB PO SCH (08:18)
[2017-08-15] MEDS: VITAMIN E 400 UNIT CAP PO SCH (08:18)
[2017-08-15] MEDS: MEMANTINE HCL 5 MG TAB PO SCH (08:18)
[2017-08-15] MEDS: PARoxetine HCL 20 MG TAB PO SCH (08:18)
[2017-08-15] MEDS: DOCUSATE SODIUM 100 MG CAP PO SCH ×2 (08:18→21:26)
[2017-08-15] MEDS: MULTIVITAMINS/MINERALS THERAPEUTIC TAB PO SCH (08:18)
[2017-08-15] MEDS: HALOPERIDOL 1 MG TAB PO SCH (08:18)
[2017-08-15] MEDS ORDERED: CLAR10CA3 PO (10:42)
[2017-08-15] MEDS ORDERED: MECL-62 PO (10:42)
[2017-08-15] MEDS ORDERED: FLUT50SP EACH NARE (10:45)
[2017-08-15] MEDS ORDERED: LOSA100T PO (12:26)
--- NOTE | 2017-08-15 12:51 | HHI.PR ---
Subjective Remarks I was asked to re-evaluate the pt due to AMS. Daughter at bedside and tells me that pt was started on paxil while here. She is not on this at home. Discussed w RN, apparently this was entered as part of her med recs in pre-op. Pt has received 4 doses since being in the hospital. Daughter also states that pt doesn 't usually ask for pain meds and per daughter pt fell behind on her pain regimen because of her not asking. Pt is somnolent when I spoke w her, she does look at me briefly but then closes her eyes. Doesn't know she is in the hospital. She does smile at me at times. She does follow commands. Daughter states that at times, she makes movements w her hands as if she sees something and is trying to catch it, also pt at some point started giggling and when daughter asked her why she said that her was making fun of her socks ( 4 years ago). Objective Vitals Vital Signs Date Time Temp Pulse Resp B/P (MAP) Pulse Ox O2 Delivery O2 Flow Rate FiO2 08/15/17 08:00 98.5 89 16 164/73 (103) 94 08/15/17 05:45 85 138/63 (88) 08/15/17 03:50 99.3 95 18 171/70 (103) 96 08/15/17 00:00 98.7 95 18 149/66 (93) 95 08/14/17 20:00 99.0 95 18 160/70 (100) 95 08/14/17 16:10 98.2 96 17 157/71 (99) 96 I/O 08/14/17 08/14/17 08/14/17 08/15/17 08/15/17 08/15/17 07:00 15:00 23:00 07:00 15:00 23:00 Intake Total 160 ml 700 ml 240 ml Balance 160 ml 700 ml 240 ml Intake Oral 160 ml 700 ml 240 ml # Voids 1 3 1 # Bowel Movements 0 0 Result Diagram: 08/13/17 0710 08/12/17 0620 Imaging Last Impressions Knee X-Ray 08/11/17 0947 Signed Impressions: Service Date/Time: Friday, August 11, 2017 14:16 - CONCLUSION: Status post left total knee arthroplasty with prosthesis in good position. Robert Smith MD Objective Remarks GENERAL: somnolent but does open her eyes and smiles at times. Noted to be nodding her head and falling asleep. CARDIOVASCULAR: Regular rate and rhythm without murmurs RESPIRATORY: Breath sounds equal bilaterally. No accessory muscle use. GASTROINTESTINAL: Abdomen soft, non-tender, nondistended. MUSCULOSKELETAL: trace edema bilaterally. Left knee w dressing in place, d/c/i NEURO: somnolent. able to move upper extremities w no difficulties, squeezes my hands upon command, strength is good. She does wiggle her toes but doesn't really office executive her lower ext due to being too somnolent. A/P Problem List: (1) Primary osteoarthritis of left knee ICD Code: M17.12 - Unilateral primary osteoarthritis, left knee Status: Resolved (2) Sleep apnea ICD Code: G47.30 - Sleep apnea, unspecified Status: Chronic (3) Hypertension ICD Code: I10 - Essential (primary) hypertension Status: Chronic (4) Primary osteoarthritis of right knee ICD Code: M17.11 - Unilateral primary osteoarthritis, right knee Status: Chronic (5) SCHIZOPHRENIA NOS-UNSPEC Status: Acute (6) Schizophrenia ICD Code: F20.9 - Schizophrenia Status: Chronic Assessment and Plan (1) Primary osteoarthritis of left knee Follow with Ortho (2) Encephalopathy suspect for polypharmacy. Apparently paxil was entered pre-op and pt doesn't take this at home. She has already received 4 doses while in the hospital. This has been stopped. I have also decrease pain regimen as pt is somnolent and appears comfortable. I also held her haldol and congentin for now. I will check MRI of the brain, if no improvement by tomorrow, consider getting neuro/psych consult. I recommend holding d/c today and reassess in AM. (3) Sleep apnea on home treatments (4) Hypertension losartan dose was not entered correctly. I have resumed her actual home regimen 100mg po daily. (5) SCHIZOPHRENIA NOS-UNSPEC stable thus far Discharge Planning I recommend holding discharge and reassess in AM Sharmin Dukes MD Aug 15, 2017 12:50
[2017-08-15] MEDS ORDERED: LOSARTAN 50 MG TAB PO ONE (13:00)
[2017-08-15] MEDS ORDERED: MORPHINE SULFATE 2 MG/ML SYRINGE IV PUSH PRN (13:00)
[2017-08-15 16:06] LABS: AUTOMATED NEUTROPHIL # 6.1 TH/MM3 (1.8-7.7); BASOPHIL % 0.2 % (0.0-2.0); EOSINOPHIL # 0.1 TH/MM3 (0-0.4); EOSINOPHIL % 0.9 % (0.0-4.0); HEMATOCRIT 31.8 % (35.0-46.0); HEMOGLOBIN 11.4 GM/DL (11.6-15.3); LYMPHOCYTE # 1.9 TH/MM3 (1.0-4.8); MEAN CELL VOLUME 86.7 FL (80.0-100.0); MEAN CORPUSCULAR HGB CONC 35.8 % (32.0-36.0); MEAN PLATELET VOLUME 7.4 FL (7.0-11.0); MONO % 10.5 % (0.0-8.0); NEUT % 67.4 % (16.0-70.0); PLATELET COUNT 203 TH/MM3 (150-450); RED BLOOD COUNT 3.66 MIL/MM3 (4.00-5.30); RED CELL DISTRIBUTION WIDTH 13.6 % (11.6-17.2)
[2017-08-15 16:38] LABS: ALBUMIN 3.2 GM/DL (3.4-5.0); ALKALINE PHOSPHATASE 73 U/L (45-117); ALT (GPT) 24 U/L (10-53); AST (GOT) 28 U/L (15-37); BLOOD UREA NITROGEN 13 MG/DL (7-18); CALCIUM 8.3 MG/DL (8.5-10.1); CHLORIDE 95 MEQ/L (98-107); CREATININE 0.74 MG/DL (0.50-1.00); GLOMERULAR FILTRATION RATE 76 ML/MIN (>89); GLUCOSE,RANDOM 119 MG/DL (74-106); SODIUM (NA) 130 MEQ/L (136-145); TOTAL BILIRUBIN ADULT 0.8 MG/DL (0.2-1.0); TOTAL PROTEIN 6.6 GM/DL (6.4-8.2)
--- NOTE | 2017-08-15 17:36 | RADRPT ---
EXAM DATE/TIME: 08/15/2017 16:50 [facility] COMPARISON: No previous studies available for comparison. INDICATIONS : Encephalitis. MEDICAL HISTORY : Hypertension. SURGICAL HISTORY : Hysterectomy. Bilateral knee replacement. ENCOUNTER: Initial ACUITY: 1 day PAIN SCORE: 2/10 LOCATION: Bilateral cranial TECHNIQUE: Multiplanar, multisequence MRI of the brain was performed without contrast. FINDINGS: CEREBRUM: Moderate diffuse renal atrophy. The ventricles are normal for degree of atrophy. No evidence of midl ine shift, mass lesion, hemorrhage or acute infarction. No extraaxial fluid collections are seen. T he pituitary gland and suprasellar cistern are normal in configuration. WHITE MATTER: Minimal periventricular white matter T2 prolongation POSTERIOR FOSSA: The cerebellum and brainstem are intact. The 4th ventricle is midline. The cerebellopontine angle is unremarkable. The cerebellar tonsils are normal in position. DIFFUSION IMAGING: No focal areas of restricted diffusion are seen. No evidence of acute infarction. EXTRACRANIAL: The visualized portions of the orbits and paranasal sinuses are unremarkable. CONCLUSION: 1. Senescent changes with definitive MRI findings to suggest encephalitis as questioned. Greg Meade MD on August 15, 2017 at 17:28 Board Certified Radiologist. This report was verified electronically.
[2017-08-15] MEDS: PRAVASTATIN SOD 20 MG TAB PO SCH (21:16)
[2017-08-16] VITALS: BP 142/58; PULSE 84; RESP 18; TEMP 98.7; O2SAT 97
[2017-08-16] MEDS: ACETAMINOPHEN/HYDROcodone 325 MG/7.5 MG TAB PO PRN ×4 (02:22→20:57)
[2017-08-16 03:20] VITALS: BP 153/67; PULSE 86; RESP 18; TEMP 98.1; O2SAT 96
[2017-08-16 07:27] LABS: HEMOGLOBIN 10.7 GM/DL (11.6-15.3)
[2017-08-16 07:48] VITALS: BP 148/63; PULSE 87; RESP 18; TEMP 98.6; O2SAT 95
[2017-08-16 07:48] LABS: BICARBONATE 26.3 MEQ/L (21.0-32.0); CALCIUM 8.3 MG/DL (8.5-10.1); CREATININE 0.71 MG/DL (0.50-1.00)
[2017-08-16] MEDS: CHOLECALCIFEROL (VIT D3) 1000 UNIT TAB PO SCH (09:28)
[2017-08-16] MEDS: MEMANTINE HCL 5 MG TAB PO SCH (09:28)
[2017-08-16] MEDS: ASPIRIN EC 81 MG TABEC PO SCH ×2 (09:29→20:56)
[2017-08-16] MEDS: VITAMIN E 400 UNIT CAP PO SCH (09:29)
[2017-08-16] MEDS: PANTOPRAZOLE SOD 40 MG DELAYED RELEASE TAB PO SCH (09:29)
[2017-08-16] MEDS: DOCUSATE SODIUM 100 MG CAP PO SCH ×2 (09:29→20:54)
[2017-08-16] MEDS: MULTIVITAMINS/MINERALS THERAPEUTIC TAB PO SCH (09:29)
[2017-08-16] MEDS: LOSARTAN 50 MG TAB PO SCH (09:30)
[2017-08-16 12:00] VITALS: BP 133/83; PULSE 78; RESP 18; TEMP 98.6; O2SAT 96
--- NOTE | 2017-08-16 12:05 | PD.PSY.CON ---
Provisional Diagnosis Admission Date Aug 11, 2017 at 07:41 History of Present Illness Service Psychiatry Consult Requested By Medicine Reason for Consult Medication adjustment Primary Care Physician Non-Staff HPI The patient is a 77 years of woman, she is , domiciled with her daughter, supported by Social Security, she has a psychiatric history of schizophrenia, early dementia, a remote hospitalization many years ago, she has been stable Haldol 2 mg twice daily, benztropine 1 mg twice daily for many years , has no previous suicidal attempts, medical history of osteoarthritis, hypertension, and sleep apnea, patient is admitted in the hospital for knee surgery. Consulted to psychiatry for medication adjustment. On psychiatric evaluation the patient is calm, superficially cooperative, she is very concrete. She reports feeling okay, denies pain, denies symptoms of anxiety and depression. She says that she feels fine. A little bit of pain in her left. He denies suicidal or homicidal ideation, she denies visual and auditory hallucinations. The patient reports hearing voices sometimes," we usually I do not understand what he wanted to tell me and I do not put attention to them". The patient reported that she has been having some visual hallucinations after surgery, she has been seeing lights and she has been confused at times. This moment the patient is fully oriented 3, no fluctuation of consciousness, no attention deficit. Patient reports that she has been medicated with Paxil, she does not understand the reason, she has never taken Paxil in her life. Review of Systems Constitutional: DENIES: Diaphoretic episodes, Fatigue, Fever, Weight gain, Weight loss, Chills, Dizziness, Change in appetite, Night Sweats Endocrine: DENIES: Abnorml menstrual pattern, Heat/cold intolerance, Polydipsia , Polyuria, Polyphagia Eyes: DENIES: Blurred vision, Diplopia, Eye inflammation, Eye pain, Vision loss , Photosensitivity, Double Vision Ears, nose, mouth, throat: DENIES: Tinnitus, Hearing loss, Vertigo, Nasal discharge, Oral lesions, Throat pain, Hoarseness, Ear Pain, Running Nose, Epistaxis, Sinus Pain, Toothache, Odynophagia Respiratory: DENIES: Apneas, Cough, Snoring, Wheezing, Hemoptysis, Sputum production, Shortness of breath Cardiovascular: DENIES: Chest pain, Palpitations, Syncope, Dyspnea on Exertion , PND, Lower Extremity Edema, Orthopnea, Claudication Gastrointestinal: DENIES: Abdominal pain, Black stools, Bloody stools, Constipation, Diarrhea, Nausea, Vomiting, Difficulty Swallowing, Anorexia Genitourinary: DENIES: Abnormal vaginal bleeding, Dysmenorrhea, Dyspareunia, Sexual dysfunction, Urinary frequency, Urinary incontinence, Urgency, Hematuria , Dysuria, Nocturia, Vaginal discharge Musculoskeletal: DENIES: Joint pain, Muscle aches, Stiffness, Joint Swelling, Back pain, Neck pain Integumentary: DENIES: Abnormal pigmentation, Pruritus, Rash, Nail changes, Breast masses, Breast skin changes, Nipple discharge Hematologic/lymphatic: DENIES: Bruising, Lymphadenopathy Immunologic/allergic: DENIES: Eczema, Urticaria Neurologic: DENIES: Abnormal gait, Headache, Localized weakness, Paresthesias, Seizures, Speech Problems, Tremor, Poor Balance Psychiatric: COMPLAINS OF: Hallucinations, DENIES: Anxiety, Confusion, Mood changes, Depression, Agitation, Suicidal Ideation, Homicidal Ideation, Delusions Past Family Social History Coded Allergies: No Known Allergies (Unverified , 07/08/16) Active Scripts Hydrocodone/Acetaminophen (Hydrocodone-Acetamin 7.5-325) 7.5 Mg-325 Mg Tablet, 1 TAB PO Q4H Y for PAIN SCALE 1 TO 10, #30 TAB Prov:Salo Mari MD (Charles) 08/11/17 Pantoprazole (Protonix) 40 Mg Tab, 40 MG PO DAILY for Ulcer Prevention, #30 TAB 0 Refills Prov:Sundar Alanis MD 03/12/16 Multiple Vitamins W/ Minerals (Multi For Her) 1 Tab Tab, 100 UNITS PO DAILY for health, #30 Prov:Sundar Alanis MD 03/12/16 Meloxicam (Mobic) 15 Mg Tab, 15 MG PO DAILY for Arthritis pain, #30 TAB 0 Refills Prov:Sundar Alanis MD 03/12/16 Reported Medications Losartan (Losartan) 100 Mg Tab, 100 MG PO DAILY for Blood Pressure Management, # 30 TAB 0 Refills 08/15/17 Fluticasone Nasal [place] (Fluticasone Nasal [place]) 50 Mcg/Act Naspr, 50 MCG EACH NARE DAILY for Allergy Management, #1 BOTTLE 0 Refills 50 mcg/spray 08/15/17 Loratadine (Claritin) 10 Mg Cap, 10 MG PO DAILY for Allergy Management, CAP 0 Refills 08/15/17 Meclizine (Meclizine) 25 Mg Tab, 25 MG PO DIRECTED Y for VERTIGO, TAB 0 Refills 08/15/17 Benztropine (Benztropine) 0.5 Mg Tab, 1 MG PO HS, #30 TAB 0 Refills 08/14/17 Memantine (Memantine) 5 Mg Tab, 5 MG PO DAILY for Alzheimer's Dementia, TAB 0 Refills 08/11/17 Paroxetine (Paroxetine) 40 Mg Tab, 40 MG PO DAILY, #30 TAB 0 Refills 07/25/17 Cholecalciferol (Vitamin D3) 1,000 Unit Tab, 1000 UNITS PO DAILY for Nutritional Supplement, #1 BOTTLE 0 Refills 07/25/17 Haloperidol (Haloperidol) 1 Mg Tab, 1 MG PO BID, TAB 0 Refills 07/25/17 Pravastatin (Pravastatin) 20 Mg Tab, 20 MG PO HS for Cholesterol Management, # 30 TAB 0 Refills 07/25/[address] (Aspirin DR) 81 Mg Tabdr, 81 MG PO DAILY, TAB 0 Refills 07/25/17 Vitamin E Acetate (Vitamin E) 400 Unit Capsule, 400 CAP PO DAILY for Nutritional Supplement 07/25/17 Ascorbic Acid ER (Vitamin C ER) 500 Mg Torres, 500 MG PO DAILY for Nutritional Supplement, TAB 0 Refills 07/25/17 Calcium Citrate (Calcium Citrate) 250 Mg Tab, PO DAILY for Calcium Supplement, TAB 0 Refills 06/28/16 Current Medications Medications (Trade) Dose Ordered Sig/Dianne Route Start Time Stop Time Status Last Admin Lactated Ringer's 1,000 ml @ 80 mls/hr [id number] IV 08/11/17 10:00 08/14/17 00:39 (Sontag 7.5-325 Mg) 1 tab Q4H PRN PO 08/11/17 10:00 08/16/17 06:32 ([place] 7.5-325 Mg) 2 tab Q4H PRN PO 08/11/17 10:00 Future Hold 08/15/17 08:23 (Zofran Inj) 4 mg Q6H PRN IVP 08/11/17 10:00 (Colace) 100 mg BID PO 08/12/17 21:00 08/16/17 09:29 (Ambien) 5 mg HS PRN PO 08/11/17 10:00 Future Hold (Milk Of Magnesia Liq) 30 ml DAILY PRN PO 08/11/17 10:00 08/15/17 08:17 (Ecotrin Ec) 81 mg BID PO 08/11/17 21:00 08/16/17 09:29 (Vitamin D3) 1,000 units DAILY PO 08/12/17 09:00 08/16/17 09:28 (Haldol) 1 mg DAILY PO 08/12/17 09:00 Future Hold 08/15/17 08:18 (Protonix) 40 mg DAILY PO 08/12/17 09:00 08/16/17 09:29 (Pravachol) 20 mg HS PO 08/11/17 21:00 08/15/17 21:16 (Theragran M Tab) 1 tab DAILY PO 08/12/17 09:00 08/16/17 09:29 (Vitamin E) 400 units DAILY PO 08/12/17 09:00 08/16/17 09:29 (Namenda) 5 mg DAILY PO 08/12/17 09:00 08/16/17 09:28 (Cogentin) 1 mg HS PO 08/14/17 21:00 Future Hold 08/14/17 22:29 (Cozaar) 100 mg DAILY PO 08/16/17 09:00 08/16/17 09:30 (Morphine Inj) 2 mg Q3H PRN IV PUSH 08/15/17 13:00 (Flonase Jonathan Spr) 1 spray DAILY EACH NARE 08/16/17 09:00 Family Psych History No family psychiatric history Social History Patient was born and raised in [place], she lives in [facility] with her daughter, she is , supported by Social Security Patient's Strengths (min. 2) Family support Physical Exam No EPS, no withdrawal symptoms, no stiffness Vital Signs Vital Signs Date Time Temp Pulse Resp B/P (MAP) Pulse Ox O2 Delivery O2 Flow Rate FiO2 08/16/17 07:48 98.6 87 18 148/63 (91) 95 I/O 08/16/17 08/16/17 08/17/17 08:00 16:00 00:00 Intake Total 240 ml Output Total 1 ml Balance 240 ml -1 ml Lab Results Test 08/15/17 15:32 08/16/17 06:43 08/16/17 06:53 White Blood Count 9.0 TH/MM3 Red Blood Count 3.66 MIL/MM3 Hemoglobin 11.4 GM/DL 10.7 GM/DL Hematocrit 31.8 % 30.0 % Mean Corpuscular Volume 86.7 FL Mean Corpuscular Hemoglobin 31.0 PG Mean Corpuscular Hemoglobin Concent 35.8 % Red Cell Distribution Width 13.6 % Platelet Count 203 TH/MM3 Mean Platelet Volume 7.4 FL Neutrophils (%) (Auto) 67.4 % Lymphocytes (%) (Auto) 21.0 % Monocytes (%) (Auto) 10.5 % Eosinophils (%) (Auto) 0.9 % Basophils (%) (Auto) 0.2 % Neutrophils # (Auto) 6.1 TH/MM3 Lymphocytes # (Auto) 1.9 TH/MM3 Monocytes # (Auto) 1.0 TH/MM3 Eosinophils # (Auto) 0.1 TH/MM3 Basophils # (Auto) 0.0 TH/MM3 CBC Comment DIFF FINAL Differential Comment Blood Urea Nitrogen 13 MG/DL 11 MG/DL Creatinine 0.74 MG/DL 0.71 MG/DL Random Glucose 119 MG/DL 115 MG/DL Total Protein 6.6 GM/DL Albumin 3.2 GM/DL Calcium Level 8.3 MG/DL 8.3 MG/DL Alkaline Phosphatase 73 U/L Aspartate Amino Transf (AST/SGOT) 28 U/L Alanine Aminotransferase (ALT/SGPT) 24 U/L Total Bilirubin 0.8 MG/DL Sodium Level 130 MEQ/L 132 MEQ/L Potassium Level 4.4 MEQ/L 4.5 MEQ/L Chloride Level 95 MEQ/L 98 MEQ/L Carbon Dioxide Level 29.0 MEQ/L 26.3 MEQ/L Anion Gap 6 MEQ/L 8 MEQ/L Estimat Glomerular Filtration Rate 76 ML/MIN 79 ML/MIN Ammonia LESS THAN 10 MCMOL/L Mental Status Examination Appearance: Appropriate Consciousness: Alert Orientation: x4 Motor Activity: Normal gait Speech: Unremarkable Language: Adequate Fund of Knowledge: Adequate Attention and Concentration: Adequate Memory: Unremarkable Mood: Appropriate Affect: Appropriate Thought Process & Associations: Intact Thought Content: Appropriate Hallucination Type: None Delusion Type: None Suicidal Ideation: No Suicidal Plan: No Suicidal Intention: No Homicidal Ideation: No Homicidal Plan: No Homicidal Intention: No Insight: Adequate Judgment: Adequate Assessment & Plan Problem List: (1) Schizophrenia ICD Codes: F20.9 - Schizophrenia Status: Chronic Assessment & Plan: Psychiatric evaluation today the patient is calm, cooperative, at baseline. Patient is logical, coherent and relevant. Patient denies depressive symptoms, denies anxiety, denies qing, denies psychosis. She denies suicidal and was ideation, she denies visual and auditory hallucinations. The patient has extensive history of schizophrenia and dementia , she has been stable for multiple years and Haldol 2 mg twice daily, Cogentin 1 mg twice daily, Namenda 5. The patient has been presenting some visual hallucinations, disorientation, confusion which in my opinion is part of delirium related with postoperative status, polypharmacy, and obviously hospitalization and no to her primary psychiatric illness, in this case schizophrenia, decompensation. There is no indication for Paxil at this moment. I will increase the Haldol to 2 mg twice daily as the patient was taking outpatient basis, it will help with delirium too. hold benztropine, since anticholinergic medication can worsen delirium. Continue Namenda 5 mg daily. Extensive support, motivation psychoeducation provided to the patient and also the family members. Patient does not meet criteria for involuntary psychiatric admission at this moment. She will continue her psychiatric care with outpatient psychiatrist. I will follow-up. Assessment & Plan Estimated LOS: Bret Davis MD Aug 16, 2017 12:05
[2017-08-16] MEDS: FLUTICASONE PROPIONATE 50 MCG/ACT 16 GM NASAL SPRAY EACH NARE SCH (12:45)
[2017-08-16] MEDS ORDERED: FUROSEMIDE 20 MG TAB PO ONE (15:00)
[2017-08-16 16:00] VITALS: BP 187/77; PULSE 83; RESP 18; TEMP 98.2; O2SAT 98
[2017-08-16 18:17] LABS: BILIRUBIN, URINE NEG (NEG); BLOOD, URINE NEG (NEG); GLUCOSE,URINE NEG (NEG); KETONE, URINE NEG (NEG); MUCUS URINE FEW /lpf (OCC); NITRITE,URINE NEG (NEG); PH, URINE 6.5 (5.0-8.5); URINE COLOR LIGHT-YELLOW (YELLW/STRAW); URINE LEUKOCYTE ESTERASE NEG (NEG)
[2017-08-16 20:00] VITALS: BP 161/67; PULSE 86; RESP 18; TEMP 98.3; O2SAT 99
[2017-08-16] MEDS: PRAVASTATIN SOD 20 MG TAB PO SCH (20:55)
[2017-08-16] MEDS ORDERED: HALOPERIDOL 2 MG TAB PO SCH (21:00)
[2017-08-16] MEDS ORDERED: HALOPERIDOL 1 MG TAB PO SCH (21:00)
[2017-08-16] MEDS: HALOPERIDOL 2 MG TAB PO SCH (21:07)
--- NOTE | 2017-08-16 23:25 | HHI.PR ---
Subjective Remarks Patient seen today around 2 PM. Mental status improved today as per family. Patient says she is feeling all right. Denies any chest pain or shortness of breath Objective Vital Signs Date Time Temp Pulse Resp B/P (MAP) Pulse Ox O2 Delivery O2 Flow Rate FiO2 08/16/17 20:00 98.3 86 18 161/67 (98) 99 08/16/17 16:00 98.2 83 18 187/77 (113) 98 08/16/17 12:00 98.6 78 18 133/83 (100) 96 08/16/17 07:48 98.6 87 18 148/63 (91) 95 08/16/17 03:20 98.1 86 18 153/67 (95) 96 08/16/17 00:00 98.7 84 18 142/58 (86) 97 I/O 08/16/17 08/16/17 08/16/17 08/17/17 08/17/17 08/17/17 07:00 15:00 23:00 07:00 15:00 23:00 Intake Total 240 ml 720 ml Output Total 1 ml Balance 240 ml -1 ml 720 ml Intake Oral 240 ml 720 ml Stool Total 1 ml # Voids 2 6 # Bowel Movements 1 1 3 Result Diagram: 08/16/17 0643 08/16/17 0653 Objective Remarks GENERAL: patient sitting up in bed. Appears comfortable. Appropriate conversation. SKIN: Warm and dry. HEAD: Normocephalic. EYES: No scleral icterus. No injection or drainage. NECK: Supple, trachea midline. No JVD. CARDIOVASCULAR: Regular rate and rhythm without murmurs, gallops, or rubs. RESPIRATORY: Breath sounds equal bilaterally. No accessory muscle use. GASTROINTESTINAL: Abdomen soft, non-tender, nondistended. MUSCULOSKELETAL: No cyanosis, or edema. BACK: Nontender without obvious deformity. No CVA tenderness. A/P Assessment and Plan //Primary osteoarthritis of left knee Follow with Ortho //Encephalopathy suspect for polypharmacy. Apparently paxil was entered pre-op and pt doesn't take this at home. She has already received 4 doses while in the hospital. This has been stopped. I have also decrease pain regimen as pt is somnolent and appears comfortable. I also held her haldol and congentin for now. I will check MRI of the brain, if no improvement by tomorrow, consider getting neuro/psych consult. I recommend holding d/c today and reassess in AM. = 08/16. Much improved off Paxil. Appreciate psychiatry assistance. MRI with no acute findings. On increased doses of Haldol. Discussed with family at bedside. Daughter will stay with patient overnight. // Sleep apnea on home treatments // Hypertension losartan dose was not entered correctly. I have resumed her actual home regimen 100mg po daily. // SCHIZOPHRENIA NOS-UNSPEC Appreciate psychiatry assistance. Discharge Planning we will continue to follow. Sg Hernandez MD Aug 16, 2017 23:25
[2017-08-17] VITALS: BP 132/58; PULSE 80; RESP 18; TEMP 98.3; O2SAT 96
[2017-08-17 04:00] VITALS: BP 164/71; PULSE 84; RESP 18; TEMP 98; O2SAT 95
[2017-08-17] MEDS: ACETAMINOPHEN/HYDROcodone 325 MG/7.5 MG TAB PO PRN ×3 (04:22→17:19)
[2017-08-17 08:00] VITALS: BP 152/65; PULSE 84; RESP 18; TEMP 97.8; O2SAT 95
[2017-08-17] MEDS: MEMANTINE HCL 5 MG TAB PO SCH (09:12)
[2017-08-17] MEDS: MULTIVITAMINS/MINERALS THERAPEUTIC TAB PO SCH (09:12)
[2017-08-17] MEDS: DOCUSATE SODIUM 100 MG CAP PO SCH (09:12)
[2017-08-17] MEDS: LOSARTAN 50 MG TAB PO SCH (09:13)
[2017-08-17] MEDS: PANTOPRAZOLE SOD 40 MG DELAYED RELEASE TAB PO SCH (09:13)
[2017-08-17] MEDS: VITAMIN E 400 UNIT CAP PO SCH (09:13)
[2017-08-17] MEDS: HALOPERIDOL 2 MG TAB PO SCH (09:13)
[2017-08-17] MEDS: CHOLECALCIFEROL (VIT D3) 1000 UNIT TAB PO SCH (09:13)
[2017-08-17] MEDS: ASPIRIN EC 81 MG TABEC PO SCH (09:13)
[2017-08-17] MEDS: FLUTICASONE PROPIONATE 50 MCG/ACT 16 GM NASAL SPRAY EACH NARE SCH (09:14)
[2017-08-17 11:52] VITALS: BP 155/70; PULSE 93; RESP 18; TEMP 97.9; O2SAT 94
--- NOTE | 2017-08-17 13:16 | HHI.PR ---
Subjective Remarks Patient seen this morning. Says she is feeling all right. Denies any chest pain or shortness of breath. Objective Vital Signs Date Time Temp Pulse Resp B/P (MAP) Pulse Ox O2 Delivery O2 Flow Rate FiO2 08/17/17 11:52 97.9 93 18 155/70 (98) 94 08/17/17 08:00 97.8 84 18 152/65 (94) 95 08/17/17 04:00 98.0 84 18 164/71 (102) 95 08/17/17 00:00 98.3 80 18 132/58 (82) 96 08/16/17 20:00 98.3 86 18 161/67 (98) 99 08/16/17 16:00 98.2 83 18 187/77 (113) 98 I/O 08/16/17 08/16/17 08/16/17 08/17/17 08/17/17 08/17/17 07:00 15:00 23:00 07:00 15:00 23:00 Intake Total 240 ml 720 ml 240 ml Output Total 1 ml Balance 240 ml -1 ml 720 ml 240 ml Intake Oral 240 ml 720 ml 240 ml Stool Total 1 ml # Voids 2 6 5 # Bowel Movements 1 1 3 1 Result Diagram: 08/16/17 0643 08/16/17 0653 Objective Remarks GENERAL: patient sitting up in bed. Appears comfortable. Appropriate conversation. no Change from yesterday. SKIN: Warm and dry. HEAD: Normocephalic. EYES: No scleral icterus. No injection or drainage. NECK: Supple, trachea midline. No JVD. CARDIOVASCULAR: Regular rate and rhythm without murmurs, gallops, or rubs. RESPIRATORY: Breath sounds equal bilaterally. No accessory muscle use. GASTROINTESTINAL: Abdomen soft, non-tender, nondistended. MUSCULOSKELETAL: No cyanosis. 1+ bilateral lower extremity edema as yesterday BACK: Nontender without obvious deformity. No CVA tenderness. A/P Assessment and Plan //Primary osteoarthritis of left knee Follow with Ortho //Encephalopathy suspect for polypharmacy. Apparently paxil was entered pre-op and pt doesn't take this at home. She has already received 4 doses while in the hospital. This has been stopped. I have also decrease pain regimen as pt is somnolent and appears comfortable. I also held her haldol and congentin for now. I will check MRI of the brain, if no improvement by tomorrow, consider getting neuro/psych consult. I recommend holding d/c today and reassess in AM. = 08/16. Much improved off Paxil. Appreciate psychiatry assistance. MRI with no acute findings. On increased doses of Haldol. Discussed with family at bedside. Daughter will stay with patient overnight. = 08/17. Patient did well overnight. Continue home dose of Haldol. Hold off on Paxil. Patient was not receiving Paxil at home. // Sleep apnea Continue on home treatments // Hypertension losartan dose was not entered correctly. I have resumed her actual home regimen 100mg po daily. // SCHIZOPHRENIA NOS-UNSPEC Appreciate psychiatry assistance. Discharge Planning we will continue to follow. Sg Hernandez MD Aug 17, 2017 13:16
== END 2017-08-17 18:03 | DRG 469 ==
LOC: HSDI 07:41 → N06A 17:56
PROVIDERS: ADMIT Orthopaedic Surgery; ATTEND Orthopaedic Surgery
PROC: 3E0T3BZ Introduction of Anesthetic Agent into Peripheral Nerves and Plexi, Percutaneous Approach (ICD-10-PCS; 2017-08-11)
PROC: 0SRD0JA Replacement of Left Knee Joint with Synthetic Substitute, Uncemented, Open Approach (ICD-10-PCS; principal; 2017-08-11 10:19)
DX: M17.12 Unilateral primary osteoarthritis, left knee (principal); G93.40 Encephalopathy, unspecified; F20.9 Schizophrenia, unspecified; F03.90 Unspecified dementia, unspecified severity, without behavioral disturbance, psychotic disturbance, mood disturbance, and anxiety; I10 Essential (primary) hypertension; G47.30 Sleep apnea, unspecified; E78.5 Hyperlipidemia, unspecified; Z96.651 Presence of right artificial knee joint
CPT/HCPCS: 70551; 73560; 80048; 80053; 81001; 82140; 85014; 85018; 85025; 86850; 86900; 86901; 94150; C1776; C9290; J0131; J0690; J1100; J1580; J1885; J2250; J2270; J2370; J2405; J2710; J3010; J7120

== ENCOUNTER 2017-08-27 21:19 | Inpatient (IN) | payer MEDICARE, BC ==
[~2017-08-27] VITALS: Ht 162.6 cm; Wt 100.1 kg
[~2017-08-27 21:19] MED LIST changes: +CLAR10CA3 PO; +DEXAMETHASONE SOD PHOS 4 MG/ML VIAL IV ONE; +FLUT50SP EACH NARE; +GLYCOPYRROLATE 1 MG/5 ML SYRINGE IV PUSH ONE; +HYDR-3580 PO; +LIDOCAINE HCL 1% PF 5 ML SYRINGE OTHER ONE; +LOSA100T PO; -LOSA25TA PO; +MECL-62 PO; +MEMA1TAB PO; +NEOSTIGMINE 5 MG/5 ML SYRINGE IV PUSH ONE; +ONDANSETRON HCL 4 MG/2 ML VIAL IV ONE; -PARO40TA2 PO; +PHENYLEPH/NS 1000 MCG/10 ML SYR IV ONE; +PROPOFOL 200 MG/20 ML AMP IV ONE; +ROCURONIUM INJ 50 MG/5 ML SYRINGE IV PUSH ONE; +SODIUM CHLOR 0.9% 1000 ML INJ 1,000 ML IV ONE; +SODIUM CHLOR 0.9% 250 ML INJ 250 ML IV ONE; +SUCCINYLCHOLINE CHLORIDE 100 MG/5 ML SYRINGE IV PUSH ONE; +ePHEDrine/NS 25 MG/5 ML SYRINGE IV ONE
[2017-08-27 21:33] VITALS: BP 135/61; PULSE 86; RESP 18; O2SAT 97
[2017-08-27] MEDS ORDERED: ceFAZolin 2 GM PREMIX 50 ML IV SCH (22:00)
[2017-08-27] MEDS ORDERED: VANCOMYCIN INJ 1,000 MG in SODIUM CHLOR 0.9% 250 ML INJ 250 ML IV ONE (22:00)
--- NOTE | 2017-08-27 22:08 | PD ---
HPI Chief Complaint: Bleeding Time Seen by Provider: 21:29 Travel History International Travel<30 days: No Contact w/Intl Traveler<30days: No Traveled to known affect area: No History of Present Illness HPI The patient was seen and examined in the presence of the nurse. This patient had a left knee replacement done on August 11 of this year. She is 16 days postop. She is at a rehab center and was ambulating from the bathroom to her bed and stumbled and tore open the incision. He is almost a total dehiscence, 12 cm is wide open and the patella is completely exposed.. No direct trauma to the knee. Minimal discomfort. Duration is 2 hours. Symptom severity is moderate. No alleviating factors. No exacerbating factors. She is on a twice daily baby aspirin PFSH Past Medical History Cancer: No Cardiovascular Problems: No High Cholesterol: Yes Diabetes: No Diminished Hearing: No Endocrine: No Gastrointestinal Disorders: Yes (HEARTBURN, CONSTIPATION) Genitourinary: Yes (WEARS DEPENDS-URGENCY) Hepatitis: No Hiatal Hernia: No Hypertension: Yes Immune Disorder: No Musculoskeletal: Yes (OSTEOARTHRITIS, BILAT KNEE PAIN) Neurologic: No Psychiatric: Yes (SCHIZO) Reproductive: No Respiratory: Yes (SOB/CPAP- SLEEP APNEA) Schizophrenia: Yes Thyroid Disease: No ?: Not Past Surgical History Abdominal Surgery: No AICD: No Body Medical Devices: NONE Cardiac Surgery: No Ear Surgery: No Endocrine Surgery: No Eye Surgery: Yes (BILAT. CATARACTS REMOVED) Genitourinary Surgery: No Gynecologic Surgery: Yes (PARTIAL HYSTERECTOMY) Hysterectomy: Yes Joint Replacement: No Oral Surgery: Yes (TONSILLECTOMY) Pacemaker: No Thoracic Surgery: No Other Surgery: Yes (lysis near vagina) Social History Alcohol Use: No Tobacco Use: No Substance Use: No Allergies-Medications (Allergen,Severity, Reaction): Coded Allergies: No Known Allergies (Unverified Adverse Reaction, Unknown, 08/27/17) Reported Meds & Prescriptions Reported Meds & Active Scripts Active Hydrocodone-Acetamin 7.5-325 (Hydrocodone/Acetaminophen) 7.5 Mg-325 Mg Tablet 1 Tab PO Q4H PRN Aspirin DR (Aspirin) 81 Mg Tabdr 81 Mg PO BID 30 Days Protonix (Pantoprazole Sodium) 40 Mg Tab 40 Mg PO DAILY Multi For Her (Multiple Vitamins W/ Minerals) 1 Tab Tab 100 Units PO DAILY Mobic (Meloxicam) 15 Mg Tab 15 Mg PO DAILY Reported Losartan (Losartan Potassium) 100 Mg Tab 100 Mg PO DAILY Fluticasone Nasal [place] 50 Mcg/Act Naspr 50 Mcg EACH NARE DAILY 50 mcg/spray Claritin (Loratadine) 10 Mg Cap 10 Mg PO DAILY Meclizine (Meclizine HCl) 25 Mg Tab 25 Mg PO DIRECTED PRN Memantine 5 Mg Tab 5 Mg PO DAILY Vitamin D3 (Cholecalciferol) 1,000 Unit Tab 1,000 Units PO DAILY Haloperidol 1 Mg Tab 1 Mg PO BID Pravastatin 20 Mg Tab 20 Mg PO HS Vitamin E (Vitamin E Acetate) 400 Unit Capsule 400 Cap PO DAILY Vitamin C ER (Ascorbic Acid) 500 Mg Torres 500 Mg PO DAILY Calcium Citrate 250 Mg Tab Unknown Dose PO DAILY Review of Systems General / Constitutional: No: Fever Eyes: No: Visual changes HENT: No: Headaches Cardiovascular: No: Chest Pain or Discomfort Respiratory: No: Shortness of Breath Gastrointestinal: No: Abdominal Pain Genitourinary: No: Dysuria Musculoskeletal: No: Pain Skin: No Rash Neurologic: No: Weakness Psychiatric: No: Depression Endocrine: No: Polydipsia Hematologic/Lymphatic: No: Easy Bruising Physical Exam Narrative GENERAL: Well-nourished, well-developed patient in no apparent distress. SKIN: Focused skin assessment reveals no rash and nodules. Skin is Warm and dry. HEAD: Atraumatic. Normocephalic. EYES: Pupils equal and round. No scleral icterus. No injection or drainage. ENT: No nasal bleeding or discharge. Mucous membranes pink and moist. NECK: Trachea midline. No JVD. CARDIOVASCULAR: Regular rate and rhythm. No murmur appreciated. RESPIRATORY: No accessory muscle use. Clear to auscultation. Breath sounds equal bilaterally. GASTROINTESTINAL: Abdomen soft, non-tender, nondistended. Hepatic and splenic margins not palpable. MUSCULOSKELETAL: There is no active bleeding. n o clubbing. No cyanosis. No edema. NEUROLOGICAL: Awake and alert. No obvious cranial nerve deficits. Motor grossly within normal limits. Normal speech. PSYCHIATRIC: Appropriate mood and affect; insight and judgment normal. Left knee examination reveals a dehiscence of the distal 12 cm of the incision. It is wide open. The entire patella is exposed. Data Data Last Documented VS Vital Signs Date Time Temp Pulse Resp B/P (MAP) Pulse Ox O2 Delivery O2 Flow Rate FiO2 08/27/17 21:38 18 97 Room Air 08/27/17 21:33 86 135/61 (85) Orders Orders Wound Culture And Gram Stain (08/27/17 21:55) Iv Access Insert/Monitor (08/27/17 21:55) Vancomycin Inj (Vancomycin Inj) (08/27/17 22:00) Cefazolin 2 Gm Premix (Ancef 2 Gm Premix (08/27/17 22:00) Complete Blood Count With Diff (08/27/17 21:55) Basic Metabolic Panel (Bmp) (08/27/17 21:55) Gentamicin Inj (Gentamicin Inj) (08/27/17 22:10) Gentamicin Inj (Gentamicin Inj) (08/27/17 22:10) Admit Order (Ed Use Only) (08/27/17 22:30) Labs Laboratory Tests Test 08/27/17 22:08 White Blood Count 6.8 TH/MM3 Red Blood Count 3.56 MIL/MM3 Hemoglobin 10.6 GM/DL Hematocrit 31.4 % Mean Corpuscular Volume 88.2 FL Mean Corpuscular Hemoglobin 29.8 PG Mean Corpuscular Hemoglobin Concent 33.8 % Red Cell Distribution Width 14.3 % Platelet Count 253 TH/MM3 Mean Platelet Volume 6.8 FL Neutrophils (%) (Auto) 54.9 % Lymphocytes (%) (Auto) 30.7 % Monocytes (%) (Auto) 11.2 % Eosinophils (%) (Auto) 2.7 % Basophils (%) (Auto) 0.5 % Neutrophils # (Auto) 3.7 TH/MM3 Lymphocytes # (Auto) 2.1 TH/MM3 Monocytes # (Auto) 0.8 TH/MM3 Eosinophils # (Auto) 0.2 TH/MM3 Basophils # (Auto) 0.0 TH/MM3 CBC Comment DIFF FINAL Differential Comment Blood Urea Nitrogen 23 MG/DL Creatinine 1.02 MG/DL Random Glucose 114 MG/DL Calcium Level 9.0 MG/DL Sodium Level 140 MEQ/L Potassium Level 4.2 MEQ/L Chloride Level 106 MEQ/L Carbon Dioxide Level 26.0 MEQ/L Anion Gap 8 MEQ/L Estimat Glomerular Filtration Rate 52 ML/MIN MDM Medical Decision Making Medical Screen Exam Complete: Yes Emergency Medical Condition: Yes Medical Record Reviewed: Yes Differential Diagnosis Wound dehiscence, contusion, wound infection Narrative Course I have reviewed the patient's electronic medical record. Reviewed her operative note from August 11 IV placed and labs sent I reviewed with orthopedic surgeon Dr. Mari who did the procedure He is coming in to evaluate the wound personally He recommended 2 g Ancef and 1 g vancomycin after a wound culture was obtained. These were done. CBC shows normal white cell count and mild anemia Metabolic's revealed decreased GFR Dr. Mari has evaluated the wound and taking the patient directly to the operating room for closure. He is admitting this patient Diagnosis Primary Impression: Wound dehiscence Additional Impression: Status post total left knee replacement Admitting Information Admitting Physician Requests: Admit Jeb Hilton MD Aug 27, 2017 22:08
[2017-08-27] MEDS ORDERED: GENTAMICIN SULFATE 80 MG/2 ML VIAL ONE ×2 (22:10)
[2017-08-27 22:22] LABS: AUTOMATED NEUTROPHIL # 3.7 TH/MM3 (1.8-7.7); BASOPHIL % 0.5 % (0.0-2.0); EOSINOPHIL # 0.2 TH/MM3 (0-0.4); EOSINOPHIL % 2.7 % (0.0-4.0); HEMATOCRIT 31.4 % (35.0-46.0); HEMOGLOBIN 10.6 GM/DL (11.6-15.3); LYMPH % 30.7 % (9.0-44.0); LYMPHOCYTE # 2.1 TH/MM3 (1.0-4.8); MEAN CELL VOLUME 88.2 FL (80.0-100.0); MEAN CORPUSCULAR HEMOGLOBIN 29.8 PG (27.0-34.0); MEAN CORPUSCULAR HGB CONC 33.8 % (32.0-36.0); MEAN PLATELET VOLUME 6.8 FL (7.0-11.0); MONO % 11.2 % (0.0-8.0); MONOCYTE # 0.8 TH/MM3 (0-0.9); NEUT % 54.9 % (16.0-70.0); PLATELET COUNT 253 TH/MM3 (150-450); RED BLOOD COUNT 3.56 MIL/MM3 (4.00-5.30); RED CELL DISTRIBUTION WIDTH 14.3 % (11.6-17.2); WHITE BLOOD COUNT 6.8 TH/MM3 (4.0-11.0)
--- NOTE | 2017-08-27 22:35 | HHI.HP ---
[facility] Service Orthopedic Surgeons Primary Care Physician Deangelo Conti MD Admission Diagnosis wound dehiscence Diagnoses: (1) Status post total left knee replacement Diagnosis: Principal Chief Complaint: Wound dehiscence, left knee. Travel History International Travel<30 Days: No Contact w/Intl Traveler <30 Da: No Traveled to Known Affected Are: No History of Present Illness This 77-year-old woman had a left total knee arthroplasty carried out by the undersigned on 08/11/2017. She remained in the hospital for several days and then was subsequently transferred to [facility], a long term facility. She was getting physical therapy at that facility. She subsequently was seen by the undersigned in the office on Friday. She was doing relatively well at that point. This evening, her family indicates that she was getting into bed and there was noted a split in the wound and opening of the wound. She was brought to the emergency department where she was found to have a dehiscence of the wound. There is no clear history of specific injury patient is not entirely clear on what has occurred. Past Family Social History Past Medical History See the previous history and physical examination. Past Surgical History See the previous history and physical examination. Reported Medications See the previous history and physical examination. Allergies: Coded Allergies: No Known Allergies (Unverified Allergy, Unknown, 08/28/17) Active Ordered Medications Current Medications Medications (Trade) Dose Ordered Sig/Dianne Route Start Time Stop Time Status Last Admin Vancomycin HCl 1000 mg/Sodium Chloride 250 ml @ 250 mls/hr ONCE ONCE IV 08/27/17 22:00 08/27/17 22:59 Cefazolin Sodium/ Dextrose 50 ml @ 100 mls/hr SHOE TURNER IV 08/27/17 22:00 08/30/17 21:59 08/27/17 22:16 Reported Meds & Active Scripts Active Hydrocodone-Acetamin 7.5-325 (Hydrocodone/Acetaminophen) 7.5 Mg-325 Mg Tablet 1 Tab PO Q4H PRN Aspirin DR (Aspirin) 81 Mg Tabdr 81 Mg PO BID 30 Days Protonix (Pantoprazole Sodium) 40 Mg Tab 40 Mg PO DAILY Multi For Her (Multiple Vitamins W/ Minerals) 1 Tab Tab 100 Units PO DAILY Mobic (Meloxicam) 15 Mg Tab 15 Mg PO DAILY Reported Losartan (Losartan Potassium) 100 Mg Tab 100 Mg PO DAILY Fluticasone Nasal [place] 50 Mcg/Act Naspr 50 Mcg EACH NARE DAILY 50 mcg/spray Claritin (Loratadine) 10 Mg Cap 10 Mg PO DAILY Meclizine (Meclizine HCl) 25 Mg Tab 25 Mg PO DIRECTED PRN Memantine 5 Mg Tab 5 Mg PO DAILY Vitamin D3 (Cholecalciferol) 1,000 Unit Tab 1,000 Units PO DAILY Haloperidol 1 Mg Tab 1 Mg PO BID Pravastatin 20 Mg Tab 20 Mg PO HS Vitamin E (Vitamin E Acetate) 400 Unit Capsule 400 Cap PO DAILY Vitamin C ER (Ascorbic Acid) 500 Mg Torres 500 Mg PO DAILY Calcium Citrate 250 Mg Tab Unknown Dose PO DAILY Family History See the previous history and physical examination. Social History See the previous history and physical examination. Physical Exam Vital Signs Vital Signs Date Time Temp Pulse Resp B/P (MAP) Pulse Ox O2 Delivery O2 Flow Rate FiO2 08/27/17 21:38 18 97 Room Air 08/27/17 21:33 86 18 135/61 (85) 97 Physical Exam HEENT: The pupils are round and reactive. The sclerae are nonicteric. The conjunctiva are pink. The extraocular motions are full. Nose and throat show that she is partially edentulous. The tongue and uvula are midline. Neck: Supple with no adenopathy. The trachea is midline. Chest: Respiratory excursions are symmetrical. Breath sounds are normal. Heart: The rhythm is regular. There is no audible murmur. Abdomen: Bowel sounds are normal. There is no rebound, rigidity or tenderness. Is a well-healed infraumbilical incisional scar. The contour is rotund. Extremities: The left knee has an incisional scar that has opening in the midportion. The opening goes down to the anterior aspect of the patella. Further evaluation is still deferred until the operating room. The neurovascular status is intact. Neurologic: The patient is alert and oriented. Cranial nerves II through XII and sensory and motor examination are grossly intact. Laboratory Laboratory Tests Test 08/27/17 22:08 White Blood Count 6.8 Red Blood Count 3.56 Hemoglobin 10.6 Hematocrit 31.4 Mean Corpuscular Volume 88.2 Mean Corpuscular Hemoglobin 29.8 Mean Corpuscular Hemoglobin Concent 33.8 Red Cell Distribution Width 14.3 Platelet Count 253 Mean Platelet Volume 6.8 Neutrophils (%) (Auto) 54.9 Lymphocytes (%) (Auto) 30.7 Monocytes (%) (Auto) 11.2 Eosinophils (%) (Auto) 2.7 Basophils (%) (Auto) 0.5 Neutrophils # (Auto) 3.7 Lymphocytes # (Auto) 2.1 Monocytes # (Auto) 0.8 Eosinophils # (Auto) 0.2 Basophils # (Auto) 0.0 CBC Comment DIFF FINAL Differential Comment Date/Time Source Procedure Growth Status 08/27/17 22:08 Wound Knee Gram Stain Pending Received 08/27/17 22:08 Wound Knee Wound Culture Pending Received Result Diagram: 08/27/172207 Caprini VTE Risk Assessment Caprini VTE Risk Assessment: Mod/High Risk (score >= 2) VTE Pharm Contraindication: Postop bleeding Caprini Risk Assessment Model Point Value = 1 Point Value = 2 Point Value = 3 Point Value = 5 Age 41-60 Minor surgery BMI > 25 kg/m2 Swollen legs Varicose veins or History of unexplained or recurrent spontaneous Oral contraceptives or hormone replacement Sepsis (< 1 month) Serious lung disease, including pneumonia (< 1 month) Abnormal pulmonary function Acute myocardial infarction Congestive heart failure (< 1 month) History of inflammatory bowel disease Medical patient at bed rest Age 61-74 Arthroscopic surgery Major open surgery (> 45 min) Laparoscopic surgery (> 45 min) Malignancy Confined to bed (> 72 hours) Immobilizing plaster cast Central venous access Age >= 75 History of VTE Family history of VTE Factor V Leiden Prothrombin [id number] Lupus anticoagulant Anticardiolipin antibodies Elevated serum homocysteine Heparin-induced thrombocytopenia Other congenital or acquired thrombophilia Stroke (< 1 month) Elective arthroplasty Hip, pelvis, or leg fracture Acute spinal cord injury (< 1 month) Prophylaxis Regimen Total Risk Factor Score Risk Level Prophylaxis Regimen 0-1 Low Early ambulation 2 Moderate Order ONE of the following: *Sequential Compression Device (SCD) *Heparin 5000 units SQ BID 3-4 Higher Order ONE of the following medications: *Heparin 5000 units SQ TID *Enoxaparin/Lovenox 40 mg SQ daily (WT < 150 kg, CrCl > 30 mL/min) *Enoxaparin/Lovenox 30 mg SQ daily (WT < 150 kg, CrCl > 10-29 mL/min) *Enoxaparin/Lovenox 30 mg SQ BID (WT < 150 kg, CrCl > 30 mL/min) AND/OR *Sequential Compression Device (SCD) 5 or more Highest Order ONE of the following medications: *Heparin 5000 units SQ TID (Preferred with Epidurals) *Enoxaparin/Lovenox 40 mg SQ daily (WT < 150 kg, CrCl > 30 mL/min) *Enoxaparin/Lovenox 30 mg SQ daily (WT < 150 kg, CrCl > 10-29 mL/min) *Enoxaparin/Lovenox 30 mg SQ BID (WT < 150 kg, CrCl > 30 mL/min) AND *Sequential Compression Device (SCD) Assessment & Plan Ortho Post Op Day #: 16 Problem List: (1) Status post total left knee replacement ICD Codes: Z96.652 - Presence of left artificial knee joint Plan: The wound is to be irrigated and debrided. I have explained this to the patient and her daughters. This will then be cleaned. There is a chance of infection with the knee. She will need to be on antibiotics. A culture and sensitivity has been obtained. Salo Mari MD (Charles) Aug 27, 2017 22:35
[2017-08-27 22:37] LABS: CREATININE 1.02 MG/DL (0.50-1.00)
[2017-08-27] MEDS ORDERED: VANCOMYCIN HCL 1000 MG VIAL ONE (22:45)
[2017-08-28] MEDS: LACTATED RINGER'S 1000 ML INJ 1,000 ML IV SCH ×2 (01:02→13:32)
[2017-08-28] MEDS ORDERED: TRANEXAMIC ACID INJ 1,000 MG in SODIUM CHLORIDE 0.9% INJ 100 ML IV SCH (01:15)
[2017-08-28] MEDS ORDERED: Post-op Orders (for Pharmacy) XX ONE (01:15)
[2017-08-28] MEDS ORDERED: ONDANSETRON HCL 4 MG/2 ML VIAL IVP PRN (01:15)
[2017-08-28] MEDS ORDERED: MAGNESIUM HYDROXIDE SUSP 30 ML CUP PO PRN (01:15)
[2017-08-28] MEDS ORDERED: ZOLPIDEM TARTRATE 5 MG TAB PO PRN (01:15)
[2017-08-28] MEDS ORDERED: METOPROLOL TARTRATE 5 MG/5 ML VIAL ONE (01:15)
[2017-08-28] MEDS ORDERED: METOPROLOL TARTRATE 5 MG/5 ML VIAL IV PUSH ONE (01:16)
--- NOTE | 2017-08-28 01:16 | PD.OP ---
Operative Report Date of Surgery: Aug 28, 2017 Preoperative Diagnosis: (1) Status post total left knee replacement (2) Wound dehiscence Postoperative Diagnosis: (1) Wound dehiscence (2) Status post total left knee replacement Procedure: Irrigation, debridement and repair, left knee wound. Anesthesia: General endotracheal Surgeon: Nickolas Mari MD Director Corporate Communications(s): ASHLEY Lares Operation and Findings: Findings: There is a dehiscence of the left knee wound. It appeared that some of the deep tissues were previously and slightly retracted as though she had previous injury before the current dehiscence. The prosthesis itself was in good condition. Patient was brought to the clean air operating suite and a general endotracheal anesthetic was administered. She received prophylactic antibiotics in the form of Ancef and vancomycin. A pneumatic tourniquet was applied to the left thigh. She was placed in the supine position on the operating table. The left leg was then prepped with alcohol, Hibiclens and ChloraPrep and draped in the usual manner with the knee draped free. A culture and sensitivity had been obtained in the emergency department. An appropriate timeout procedure was carried out. The wound was then irrigated with pulse lavage. After approximately 1 L of irrigation, the wound was opened at the proximal and to the extent of the wound for further evaluation and repair. Debridement of the knee was carried out removing debris and clot. The wound was then irrigated well with the remainder of the 3 lesions of antibiotic solution using pulse lavage. Soft tissues were mobilized. Drains were brought at the superior lateral aspect of the suprapatellar pouch. The deep dehiscence was approximated and held with towel clips. #1 Vicryl with antibiotic was used for the capsular closure. The technique used was a combination of [id number] sutures as well as Alan- Mohsen sutures. The knee was taken through a range of motion to about 80 after the repair was done. This appeared to be a stable repair. The subcutaneous tissues were closed with 2-0 Vicryl antibiotic impregnated interrupted simple sutures with buried knots. The skin was closed with asif. The wound was then dressed with optic foam silver impregnated dressing. A Tegaderm was placed over the drain site. Knee was wrapped with soft roll and Sergei bandage. He was then placed into the knee immobilizer. Patient was then transferred from the operating room to the recovery room in satisfactory condition having tolerated procedure well. Counts were correct. Specimens: None. Salo Mari MD (Charles) Aug 28, 2017 01:16
[2017-08-28] MEDS ORDERED: DO NOT ADM ANY ANTICOAGULANT DRUGS PRN (01:17)
[2017-08-28] MEDS: KETOROLAC TROMETHAMINE 30 MG/ML (IVP) VIAL IVP SCH ×4 (01:26→20:47)
[2017-08-28] MEDS ORDERED: *morphine SULFATE 8 MG/ML PERIprocedure ONLY ONE (02:11)
[2017-08-28] MEDS: MORPHINE SULFATE 4 MG/ML INJ IV PUSH PRN (04:47)
[2017-08-28 06:56] VITALS: BP 121/69; PULSE 74; RESP 18; TEMP 98; O2SAT 93
--- NOTE | 2017-08-28 07:26 | PD.ORT.PN ---
Subjective Post Op Day #: 1 Subjective Remarks She is doing well. She does not have much in the way of pain at this time. Objective Vitals Vital Signs Date Time Temp Pulse Resp B/P (MAP) Pulse Ox O2 Delivery O2 Flow Rate FiO2 08/28/17 06:56 98.0 74 18 121/69 (86) 93 08/28/17 03:14 15 08/28/17 03:00 98.8 73 13 142/66 (91) 93 Room Air 08/28/17 02:30 72 15 124/59 (80) 95 Room Air 08/28/17 02:00 71 15 143/59 (87) 95 Room Air 08/28/17 01:30 74 15 149/67 (94) 100 Nasal Cannula 2 08/28/17 01:15 97 15 157/69 (98) 100 Nasal Cannula 2 08/28/17 01:10 99 15 167/74 (105) 100 Nasal Cannula 4 08/28/17 01:09 98.6 98 15 182/74 (110) 100 Nasal Cannula 4 08/27/17 21:38 18 97 Room Air 08/27/17 21:33 86 18 135/61 (85) 97 I/O 08/27/17 08/27/17 08/27/17 08/28/17 08/28/17 08/28/17 07:00 15:00 23:00 07:00 15:00 23:00 Intake Total 1300 ml Output Total 100 ml Balance 1200 ml Other 1300 ml Output Estimated Blood Loss 100 ml # Voids 1 Result Diagram: 08/27/17220708/27/172207 Objective Remarks She is resting comfortably, supine in bed. The neurovascular status is intact. Dressing is dry and intact. Assessment & Plan Ortho Post Op Day #: 1 Problem List: (1) Status post total left knee replacement ICD Codes: Z96.652 - Presence of left artificial knee joint Plan: Continue postop care and begin PT. Assessment and Plan Condition: Good. Orthopedically stable. DVT prophylaxis: TEDs, aspirin, sequentials. Discharge plans: assisted facility. An appointment was scheduled through the office. We are not going to work on motion at this time. We are going to have her get quadriceps strengthening with straight leg raises and quad sets. She is to ambulate with a brace on at this time. Salo Mari MD (Charles) Aug 28, 2017 07:26
[2017-08-28 07:40] VITALS: BP 131/58; PULSE 73; RESP 19; TEMP 98.7; O2SAT 95
--- NOTE | 2017-08-28 08:05 | PD.CONS ---
HPI Service [facility] Consult Requested By Orthopedic service Reason for Consult Medical management history of hypertension, schizophrenia Primary Care Physician Deangelo Conti MD Diagnoses: (1) Wound dehiscence (2) Status post total left knee replacement (3) Hypertension (4) Schizophrenia History of Present Illness Patient is a very pleasant 77-year-old female with history of hypertension, schizophrenia, who had left total knee replacement last August 11 and [facility]. At the rehab was noted to have a wide wound dehiscence of post op incision and was brought to the emergency room. Patient was promptly admitted and seen by Dr. Mari and underwent I n D / lavage was done. Patient denies any fever chills pain. Appears comfortable. Review of Systems Constitutional: DENIES: Fever, Weight loss, Chills, Change in appetite Eyes: DENIES: Blurred vision, Double Vision Ears, nose, mouth, throat: DENIES: Tinnitus, Ear Pain, Epistaxis, Odynophagia Respiratory: DENIES: Cough, Hemoptysis, Sputum production, Shortness of breath Cardiovascular: DENIES: Chest pain, Palpitations, Dyspnea on Exertion, Lower Extremity Edema, Orthopnea Gastrointestinal: DENIES: Black stools, Bloody stools, Difficulty Swallowing, Anorexia Genitourinary: DENIES: Urgency, Hematuria, Vaginal discharge Musculoskeletal: DENIES: Joint pain, Stiffness Integumentary: DENIES: Pruritus Hematologic/lymphatic: DENIES: Bruising Immunologic/allergic: DENIES: Urticaria Neurologic: DENIES: Headache, Speech Problems, Tremor Psychiatric: DENIES: Suicidal Ideation, Homicidal Ideation Past Family Social History Allergies: Coded Allergies: No Known Allergies (Unverified Allergy, Unknown, 08/28/17) Past Medical History Hypertension Hyperlipidemia Schizophrenia Per patient family history of CVA, CAD Past Surgical History Status post left knee surgery August 11 History of right knee surgery over a year ago Reported Medications Medication list includes Claritin Pravastatin Losartan Aspirin 81 mg twice a day Mobic Hydrocodone Haloperidol Namenda Flonase nasal spray Protonix Vitamin C, vitamin D Active Ordered Medications See EMR Family History Noncontributory Social History Patient denies any history of smoking alcohol use Physical Exam Vital Signs Vital Signs Date Time Temp Pulse Resp B/P (MAP) Pulse Ox O2 Delivery O2 Flow Rate FiO2 08/28/17 07:40 98.7 73 19 131/58 (82) 95 08/28/17 06:56 98.0 74 18 121/69 (86) 93 08/28/17 03:14 15 08/28/17 03:00 98.8 73 13 142/66 (91) 93 Room Air 08/28/17 02:30 72 15 124/59 (80) 95 Room Air 08/28/17 02:00 71 15 143/59 (87) 95 Room Air 08/28/17 01:30 74 15 149/67 (94) 100 Nasal Cannula 2 08/28/17 01:15 97 15 157/69 (98) 100 Nasal Cannula 2 08/28/17 01:10 99 15 167/74 (105) 100 Nasal Cannula 4 08/28/17 01:09 98.6 98 15 182/74 (110) 100 Nasal Cannula 4 08/27/17 21:38 18 97 Room Air 08/27/17 21:33 86 18 135/61 (85) 97 Physical Exam GENERAL: Awake alert in no acute distress oriented to person place and year patient's speech is slow but clear SKIN: No rashes, ecchymoses or lesions. Cool and dry. HEAD: Normocephalic. No temporal or scalp tenderness. EYES: Pupils equal round and reactive. Extraocular motions intact. No scleral icterus. No injection or drainage. ENT: Nose without bleeding, Throat without erythema, . Airway patent. NECK: Trachea midline. Supple, nontender, no meningeal signs. CARDIOVASCULAR: Regular rate and rhythm without murmurs, gallops, or rubs. RESPIRATORY: Clear to auscultation. Breath sounds equal bilaterally. No wheezes , rales, or rhonchi. GASTROINTESTINAL: Abdomen soft, non-tender, \. No guarding. MUSCULOSKELETAL: Extremities without clubbing, cyanosis, left lower extremity with postop dressing in place knee immobilizer left Hemovac in place NEUROLOGICAL: Awake and alert. Cranial nerves II through XII intact. Nonfocal exam Laboratory Laboratory Tests Test 08/27/17 22:08 White Blood Count 6.8 Red Blood Count 3.56 Hemoglobin 10.6 Hematocrit 31.4 Mean Corpuscular Volume 88.2 Mean Corpuscular Hemoglobin 29.8 Mean Corpuscular Hemoglobin Concent 33.8 Red Cell Distribution Width 14.3 Platelet Count 253 Mean Platelet Volume 6.8 Neutrophils (%) (Auto) 54.9 Lymphocytes (%) (Auto) 30.7 Monocytes (%) (Auto) 11.2 Eosinophils (%) (Auto) 2.7 Basophils (%) (Auto) 0.5 Neutrophils # (Auto) 3.7 Lymphocytes # (Auto) 2.1 Monocytes # (Auto) 0.8 Eosinophils # (Auto) 0.2 Basophils # (Auto) 0.0 CBC Comment DIFF FINAL Differential Comment Blood Urea Nitrogen 23 Creatinine 1.02 Random Glucose 114 Calcium Level 9.0 Sodium Level 140 Potassium Level 4.2 Chloride Level 106 Carbon Dioxide Level 26.0 Anion Gap 8 Estimat Glomerular Filtration Rate 52 Date/Time Source Procedure Growth Status 08/27/17 22:08 Wound Knee Gram Stain Pending Received 08/27/17 22:08 Wound Knee Wound Culture Pending Received Result Diagram: 08/27/17220708/27/172207 Assessment and Plan Problem List: (1) Status post total left knee replacement ICD Code: Z96.652 - Presence of left artificial knee joint Assessment and Plan 77-year-old female Status post I and D of postop wound dehiscence 08/27 post status post total knee replacement 08/11. Postop day 1 Orthopedic surgery following. Discussed with Dr. Mejia Await final cultures As needed pain meds PT eval and treat. History of hypertension continue on losartan History of schizophrenia Continue on haloperidol and Namenda. Acute kidney injury prerenal in ratio. Patient continue on IV fluids 80 cc an hour check BMP Continue on aspirin 81 mg twice daily for DVT prophylaxis Continue on home PPI Discharge [id number] [facility] Awa Bowen MD Aug 28, 2017 08:05
[2017-08-28] MEDS: ASPIRIN EC 81 MG TABEC PO SCH ×2 (08:53→20:46)
[2017-08-28] MEDS: FLUTICASONE PROPIONATE 50 MCG/ACT 16 GM NASAL SPRAY EACH NARE SCH (09:00)
[2017-08-28 10:22] LABS: BICARBONATE 25.1 MEQ/L (21.0-32.0); CALCIUM 8.3 MG/DL (8.5-10.1); CREATININE 1.06 MG/DL (0.50-1.00)
[2017-08-28] MEDS: HALOPERIDOL 1 MG TAB PO SCH ×2 (10:30→20:46)
[2017-08-28] MEDS: LOSARTAN 50 MG TAB PO SCH (10:31)
[2017-08-28] MEDS: ASCORBIC ACID 500 MG TAB PO SCH (10:31)
[2017-08-28] MEDS: MEMANTINE HCL 5 MG TAB PO SCH (10:31)
[2017-08-28] MEDS: CHOLECALCIFEROL (VIT D3) 1000 UNIT TAB PO SCH (10:31)
[2017-08-28] MEDS: PANTOPRAZOLE SOD 40 MG DELAYED RELEASE TAB PO SCH (10:31)
[2017-08-28] MEDS: VITAMIN E 400 UNIT CAP PO SCH (10:31)
[2017-08-28] MEDS: ACETAMINOPHEN/HYDROcodone 325 MG/5 MG TAB PO PRN ×2 (10:37→18:38)
[2017-08-28 11:40] VITALS: BP 100/49; PULSE 76; RESP 19; TEMP 98.2; O2SAT 94
[2017-08-28 15:43] VITALS: BP 131/63; PULSE 81; RESP 19; TEMP 98.1; O2SAT 94
--- NOTE | 2017-08-28 19:42 | PD.ID.CON ---
History of Present Illness Service ID Consult Requested By Reason for Consult Evaluation and Mment of Left knee MRSA wound infection possible hardware infection Primary Care Physician Deangelo Conti MD Diagnoses: History of Present Illness is a 77 y/o CF with PMHx of left total knee arthroplasty by Dr.CB Mari on 08/11/2017. She remained in the hospital for several days and then was subsequently transferred to [facility], a longterm facility. She was getting physical therapy at that facility. She subsequently was seen by ortho in the office and was reportedly doing relatively well at that point. The daughter in room informs me that when she was getting into bed when the staff noted a split in the wound and opening of the wound. She was brought to the emergency department where she was found to have a dehiscence of the wound. There is no clear history of specific injury patient is not entirely clear on what has occurred. Patient underwent I&D of abscess. Reviewed and dw Ortho concern for deep infection and hardware seeding. Will treat as osteomyelitis. Cr elevated, UO ok. Eating ok. Sitting in chair. Has a drain in her left knee. WBC normal, no fevers. ID consulted for evaluation and Mment of Left knee MRSA wound infection and possible hardware infection. Review of Systems Constitutional: DENIES: Diaphoretic episodes, Fatigue, Fever, Weight gain, Weight loss, Chills, Dizziness, Change in appetite, Night Sweats Endocrine: DENIES: Abnorml menstrual pattern, Heat/cold intolerance, Polydipsia , Polyuria, Polyphagia Eyes: DENIES: Blurred vision, Diplopia, Eye inflammation, Eye pain, Vision loss , Photosensitivity, Double Vision Ears, nose, mouth, throat: DENIES: Tinnitus, Hearing loss, Vertigo, Nasal discharge, Oral lesions, Throat pain, Hoarseness, Ear Pain, Running Nose, Epistaxis, Sinus Pain, Toothache, Odynophagia Respiratory: DENIES: Apneas, Cough, Snoring, Wheezing, Hemoptysis, Sputum production, Shortness of breath Cardiovascular: DENIES: Chest pain, Palpitations, Syncope, Dyspnea on Exertion , PND, Lower Extremity Edema, Orthopnea, Claudication Gastrointestinal: DENIES: Abdominal pain, Black stools, Bloody stools, Constipation, Diarrhea, Nausea, Vomiting, Difficulty Swallowing, Anorexia Genitourinary: DENIES: Abnormal vaginal bleeding, Dysmenorrhea, Dyspareunia, Sexual dysfunction, Urinary frequency, Urinary incontinence, Urgency, Hematuria , Dysuria, Nocturia, Vaginal discharge Musculoskeletal: COMPLAINS OF: Joint pain, DENIES: Joint Swelling Integumentary: DENIES: Abnormal pigmentation, Pruritus, Rash, Nail changes, Breast masses, Breast skin changes, Nipple discharge Hematologic/lymphatic: DENIES: Bruising, Lymphadenopathy Immunologic/allergic: DENIES: Eczema, Urticaria Neurologic: DENIES: Abnormal gait, Headache, Localized weakness, Paresthesias, Seizures, Speech Problems, Tremor, Poor Balance Psychiatric: DENIES: Anxiety, Confusion, Mood changes, Depression, Hallucinations, Agitation, Suicidal Ideation, Homicidal Ideation, Delusions Except as stated in HPI: all other systems reviewed are Neg Past Family Social History Allergies: Coded Allergies: No Known Allergies (Unverified Allergy, Unknown, 08/28/17) Past Medical History Hypertension Hyperlipidemia Schizophrenia Per patient family history of CVA, CAD Past Surgical History Status post left knee surgery August 11 History of right knee surgery over a year ago Reported Medications Reported Meds & Active Scripts Active Hydrocodone-Acetamin 7.5-325 (Hydrocodone/Acetaminophen) 7.5 Mg-325 Mg Tablet 1 Tab PO Q4H PRN Aspirin DR (Aspirin) 81 Mg Tabdr 81 Mg PO BID 30 Days Protonix (Pantoprazole Sodium) 40 Mg Tab 40 Mg PO DAILY Multi For Her (Multiple Vitamins W/ Minerals) 1 Tab Tab 100 Units PO DAILY Mobic (Meloxicam) 15 Mg Tab 15 Mg PO DAILY Reported Losartan (Losartan Potassium) 100 Mg Tab 100 Mg PO DAILY Fluticasone Nasal [place] 50 Mcg/Act Naspr 50 Mcg EACH NARE DAILY 50 mcg/spray Claritin (Loratadine) 10 Mg Cap 10 Mg PO DAILY Meclizine (Meclizine HCl) 25 Mg Tab 25 Mg PO DIRECTED PRN Memantine 5 Mg Tab 5 Mg PO DAILY Vitamin D3 (Cholecalciferol) 1,000 Unit Tab 1,000 Units PO DAILY Haloperidol 1 Mg Tab 1 Mg PO BID Pravastatin 20 Mg Tab 20 Mg PO HS Vitamin E (Vitamin E Acetate) 400 Unit Capsule 400 Cap PO DAILY Vitamin C ER (Ascorbic Acid) 500 Mg Torres 500 Mg PO DAILY Calcium Citrate 250 Mg Tab Unknown Dose PO DAILY Active Ordered Medications Current Medications Medications (Trade) Dose Ordered Sig/Dianne Route Start Time Stop Time Status Last Admin Cefazolin Sodium/ Dextrose 50 ml @ 100 mls/hr INSULATOR HELPER IV 08/27/17 22:00 08/30/17 21:59 08/27/17 22:16 Lactated Ringer's 1,000 ml @ 80 mls/hr [id number] IV 08/28/17 01:02 08/28/17 01:02 Cefazolin Sodium 1000 mg/Sodium Chloride 100 ml @ 200 mls/hr Q6H IV 08/28/17 10:00 08/31/17 04:29 08/28/17 23:50 (Morphine Inj) 4 mg Q3H PRN IV PUSH 08/28/17 01:15 08/28/17 04:47 ([place] 5-325 Mg) 1 tab Q4H PRN PO 08/28/17 01:15 08/28/17 18:38 ([place] 5-325 Mg) 2 tab Q4H PRN PO 08/28/17 01:15 (Toradol Inj) 15 mg Q6H IVP 08/28/17 02:00 08/29/17 20:01 08/28/17 20:47 (Zofran Inj) 4 mg Q6H PRN IVP 08/28/17 01:15 (Colace) 100 mg BID PO 08/29/17 21:00 (Ambien) 5 mg HS PRN PO 08/28/17 01:15 (Milk Of Magnesia Liq) 30 ml DAILY PRN PO 08/28/17 01:15 (Ecotrin Ec) 81 mg BID PO 08/28/17 09:00 08/28/17 20:46 (Vitamin D3) 1,000 units DAILY PO 08/28/17 09:00 08/28/17 10:31 (Flonase Jonathan Spr) 1 spray DAILY EACH NARE 08/28/17 09:00 (Haldol) 1 mg BID PO 08/28/17 09:00 08/28/17 20:46 (Cozaar) 100 mg DAILY PO 08/28/17 09:00 08/28/17 10:31 (Namenda) 5 mg DAILY PO 08/28/17 09:00 08/28/17 10:31 (Protonix) 40 mg DAILY PO 08/28/17 09:00 08/28/17 10:31 (Pravachol) 20 mg HS PO 08/28/17 21:00 08/28/17 20:46 (Vitamin C) 500 mg DAILY PO 08/28/17 09:00 08/28/17 10:31 (Vitamin E) 400 units DAILY PO 08/28/17 09:00 08/28/17 10:31 Daptomycin 1000 mg/Sodium Chloride 100 ml @ 200 mls/hr Q24H IV 08/28/17 22:00 08/28/17 22:05 Family History reviewed NC Social History reviewed no alcohol, smoking or drugs. Physical Exam Vital Signs Vital Signs Date Time Temp Pulse Resp B/P (MAP) Pulse Ox O2 Delivery O2 Flow Rate FiO2 08/28/17 16:55 18 08/28/17 15:43 98.1 81 19 131/63 (85) 94 08/28/17 11:40 98.2 76 19 100/49 (66) 94 08/28/17 11:37 18 08/28/17 07:40 98.7 73 19 131/58 (82) 95 08/28/17 06:56 98.0 74 18 121/69 (86) 93 08/28/17 03:00 98.8 73 13 142/66 (91) 93 Room Air 08/28/17 02:30 72 15 124/59 (80) 95 Room Air 08/28/17 02:00 71 15 143/59 (87) 95 Room Air 08/28/17 01:30 74 15 149/67 (94) 100 Nasal Cannula 2 08/28/17 01:15 97 15 157/69 (98) 100 Nasal Cannula 2 08/28/17 01:10 99 15 167/74 (105) 100 Nasal Cannula 4 08/28/17 01:09 98.6 98 15 182/74 (110) 100 Nasal Cannula 4 08/27/17 21:38 18 97 Room Air 08/27/17 21:33 86 18 135/61 (85) 97 Physical Exam GENERAL: This is a well-nourished, well-developed patient, in no apparent distress. SKIN: No rashes, ecchymoses or lesions. Cool and dry. HEAD: Atraumatic. Normocephalic. No temporal or scalp tenderness. EYES: Pupils equal round and reactive. Extraocular motions intact. No scleral icterus. No injection or drainage. ENT: Nose without bleeding, purulent drainage or septal hematoma. Throat without erythema, tonsillar hypertrophy or exudate. Uvula midline. Airway patent. NECK: Trachea midline. Supple, nontender, no meningeal signs. CARDIOVASCULAR: HS audible. RESPIRATORY: Clear to auscultation. Breath sounds equal bilaterally. No wheezes , rales, or rhonchi. GASTROINTESTINAL: Abdomen soft, non-tender, nondistended. Obese. MUSCULOSKELETAL: Rt knee with disc drain with sanguinous discharge. Immobilizer in place. NEUROLOGICAL: Awake and alert. non focal Psych cooperative IV line sites with no e/o infection Laboratory Laboratory Tests Test 08/27/17 22:08 08/28/17 09:35 White Blood Count 6.8 Red Blood Count 3.56 Hemoglobin 10.6 Hematocrit 31.4 Mean Corpuscular Volume 88.2 Mean Corpuscular Hemoglobin 29.8 Mean Corpuscular Hemoglobin Concent 33.8 Red Cell Distribution Width 14.3 Platelet Count 253 Mean Platelet Volume 6.8 Neutrophils (%) (Auto) 54.9 Lymphocytes (%) (Auto) 30.7 Monocytes (%) (Auto) 11.2 Eosinophils (%) (Auto) 2.7 Basophils (%) (Auto) 0.5 Neutrophils # (Auto) 3.7 Lymphocytes # (Auto) 2.1 Monocytes # (Auto) 0.8 Eosinophils # (Auto) 0.2 Basophils # (Auto) 0.0 CBC Comment DIFF FINAL Differential Comment Blood Urea Nitrogen 23 22 Creatinine 1.02 1.06 Random Glucose 114 173 Calcium Level 9.0 8.3 Sodium Level 140 139 Potassium Level 4.2 5.2 Chloride Level 106 106 Carbon Dioxide Level 26.0 25.1 Anion Gap 8 8 Estimat Glomerular Filtration Rate 52 50 Date/Time Source Procedure Growth Status 08/27/17 22:08 Wound Knee Gram Stain - Final Resulted 08/27/17 22:08 Wound Culture - Preliminary S. Aureus Mrsa Resulted Result Diagram: 08/27/178 08/28/17 0935 Assessment and Plan Assessment and Plan Right knee wound infection: MRSA Right knee possible hardware infection or seeding. Obesity BMO 38.2 Acute renal failure: prerenal, baseline. Recs Start Daptomycin IV(given obesity, age and high Cr will use Dapto instead of Vanco IV. Not a candidate for Vanco IV) Cannot use Rifampin due to drug interactions. Check CK and monitor clinically and CK for rhabdomyolysis as patient on Pravastatin. Consider [facility] consult (pts daughter prefers) Follow cultures for Dapto susceptibility Follow clinically. heather Mari: will treat as hardware infection dw Daughter informed her of plan for osteomyelitis and since no conclusive evidence of hardware infection will treat with retained hardware for now. May need oral suppression if family does not want repeat surgeries considering age comorbidities. covering for wa 08/29 - 08/31/17. Amanda Rios MD Aug 28, 2017 19:42
[2017-08-28 20:01] VITALS: BP 126/58; PULSE 77; RESP 18; TEMP 98.3; O2SAT 95
[2017-08-28] MEDS: PRAVASTATIN SOD 20 MG TAB PO SCH (20:46)
[2017-08-28] MEDS: DAPTOmycin INJ 1,000 MG in SODIUM CHLORIDE 0.9% INJ 100 ML IV SCH (22:05)
[2017-08-28 22:08] LABS: C-REACTIVE PROTEIN 1.4 MG/DL (0.00-0.30)
[2017-08-28 23:00] VITALS: BP 103/50; PULSE 76; RESP 17; TEMP 98.7; O2SAT 96
[2017-08-29] MEDS: KETOROLAC TROMETHAMINE 30 MG/ML (IVP) VIAL IVP SCH ×4 (02:38→21:42)
[2017-08-29] MEDS: LACTATED RINGER'S 1000 ML INJ 1,000 ML IV SCH ×2 (02:38→14:32)
[2017-08-29 02:50] VITALS: BP 140/62; PULSE 79; RESP 17; TEMP 98.7; O2SAT 94
[2017-08-29 05:25] LABS: HEMATOCRIT 25.3 % (35.0-46.0); HEMOGLOBIN 8.7 GM/DL (11.6-15.3)
--- NOTE | 2017-08-29 07:02 | PD.ORT.PN ---
Subjective Post Op Day #: 2 Subjective Remarks She is doing well. She does not have much in the way of pain at this time. Distance Walked 40 feet with PT. Objective Vitals Vital Signs Date Time Temp Pulse Resp B/P (MAP) Pulse Ox O2 Delivery O2 Flow Rate FiO2 08/29/17 02:50 98.7 79 17 140/62 (88) 94 08/28/17 23:00 98.7 76 17 103/50 (67) 96 08/28/17 20:01 98.3 77 18 126/58 (80) 95 08/28/17 19:38 16 08/28/17 16:55 18 08/28/17 15:43 98.1 81 19 131/63 (85) 94 08/28/17 11:40 98.2 76 19 100/49 (66) 94 08/28/17 07:40 98.7 73 19 131/58 (82) 95 I/O 08/28/17 08/28/17 08/28/17 08/29/17 08/29/17 08/29/17 07:00 15:00 23:00 07:00 15:00 23:00 Intake Total 1300 ml 650 ml 480 ml Output Total 100 ml 75 ml 50 ml Balance 1200 ml 575 ml 430 ml Intake Oral 650 ml 480 ml Other 1300 ml Output Drainage Total 75 ml 50 ml Estimated Blood Loss 100 ml # Voids 1 2 2 # Bowel Movements 0 Result Diagram: 08/29/17 0421 08/28/17 0935 Other Results Microbiology Date/Time Source Procedure Growth Status 08/28/17 23:50 Blood Peripheral Aerobic Blood Culture Pending Received 08/28/17 23:50 Blood Peripheral Anaerobic Blood Culture Pending Received 08/28/17 23:40 Blood Peripheral Aerobic Blood Culture Pending Received 08/28/17 23:40 Blood Peripheral Anaerobic Blood Culture Pending Received 08/27/17 22:08 Wound Knee Gram Stain - Final Resulted 08/27/17 22:08 Wound Culture - Preliminary S. Aureus Mrsa Resulted Objective Remarks She is resting comfortably, supine in bed. The neurovascular status is intact. Dressing is dry and intact. Assessment & Plan Ortho Post Op Day #: 2 Problem List: (1) Status post total left knee replacement ICD Codes: Z96.652 - Presence of left artificial knee joint Plan: Continue postop care and begin PT. Assessment and Plan Condition: Good. Orthopedically stable. DVT prophylaxis: TEDs, aspirin, sequentials. Discharge plans: correction facility. An appointment was scheduled through the office. We are not going to work on motion at this time. We are going to have her get quadriceps strengthening with straight leg raises and quad sets. She is to ambulate with a brace on at this time. I have discussed the patient with Dr. Rios. The current plan would be to continue with parenteral antibiotics according to the sensitivities for 6 weeks. After that suppression might be necessary. If she can retain her current prosthesis I would prefer doing that rather than removing the prosthesis and using a spacer. We will await the sensitivities. Salo Mari MD (Charles) Aug 29, 2017 07:02
[2017-08-29 08:00] VITALS: BP 142/58; PULSE 83; RESP 18; TEMP 96.4; O2SAT 100
[2017-08-29] MEDS: LOSARTAN 50 MG TAB PO SCH (09:00)
[2017-08-29 09:02] VITALS: O2SAT 99
[2017-08-29] MEDS: HALOPERIDOL 1 MG TAB PO SCH ×2 (09:29→21:43)
[2017-08-29] MEDS: VITAMIN E 400 UNIT CAP PO SCH (09:29)
[2017-08-29] MEDS: CHOLECALCIFEROL (VIT D3) 1000 UNIT TAB PO SCH (09:29)
[2017-08-29] MEDS: PANTOPRAZOLE SOD 40 MG DELAYED RELEASE TAB PO SCH (09:29)
[2017-08-29] MEDS: MEMANTINE HCL 5 MG TAB PO SCH (09:29)
[2017-08-29] MEDS: ASPIRIN EC 81 MG TABEC PO SCH ×2 (09:30→21:42)
[2017-08-29] MEDS: ASCORBIC ACID 500 MG TAB PO SCH (09:30)
[2017-08-29] MEDS: FLUTICASONE PROPIONATE 50 MCG/ACT 16 GM NASAL SPRAY EACH NARE SCH (09:30)
[2017-08-29 12:00] VITALS: BP 142/56; PULSE 93; RESP 18; TEMP 97.2; O2SAT 94
--- NOTE | 2017-08-29 12:13 | HHI.PR ---
Subjective Remarks up on chair no complains no fever Objective Vitals Vital Signs Date Time Temp Pulse Resp B/P (MAP) Pulse Ox O2 Delivery O2 Flow Rate FiO2 08/29/17 09:02 99 Nasal Cannula 2.00 08/29/17 08:00 96.4 83 18 142/58 (86) 100 08/29/17 02:50 98.7 79 17 140/62 (88) 94 08/28/17 23:00 98.7 76 17 103/50 (67) 96 08/28/17 20:01 98.3 77 18 126/58 (80) 95 08/28/17 19:38 16 08/28/17 16:55 18 08/28/17 15:43 98.1 81 19 131/63 (85) 94 I/O 08/28/17 08/28/17 08/28/17 08/29/17 08/29/17 08/29/17 07:00 15:00 23:00 07:00 15:00 23:00 Intake Total 1300 ml 650 ml 480 ml Output Total 100 ml 75 ml 50 ml 100 ml Balance 1200 ml 575 ml 430 ml -100 ml Intake Oral 650 ml 480 ml Other 1300 ml Output Drainage Total 75 ml 50 ml 100 ml Estimated Blood Loss 100 ml # Voids 1 2 2 # Bowel Movements 0 Result Diagram: 08/29/17 0421 08/28/17 0935 Objective Remarks awake and alert, no distress anicteric lungs- no rales regular rhythm abdomen- soft good bowel sounds left LE- dressing in place, leg brace in place A/P Problem List: (1) Wound dehiscence ICD Code: T81.30XA - Disruption of wound, unspecified, initial encounter Status: Acute (2) Status post total left knee replacement ICD Code: Z96.652 - Presence of left artificial knee joint (3) Hypertension ICD Code: I10 - Essential (primary) hypertension Status: Chronic (4) Schizophrenia ICD Code: F20.9 - Schizophrenia Status: Chronic Assessment and Plan 77-year-old female Status post I and D of postop wound dehiscence 08/27 - MRSA S/P total knee replacement 08/11. Orthopedic surgery following. growing MRS- ID consulted and started on Cubicin. FF CK level As needed pain meds PT eval and treat.daily History of hypertension continue on losartan History of Hperlipidemia- on statins History of schizophrenia Continue on haloperidol and Namenda. Acute kidney injury prerenal in ratio. Mild HYperkalemia on labs Patient continue on IV fluids 80 cc an hour check BMP today Continue on aspirin 81 mg twice daily for DVT prophylaxis Continue on home PPI Discharge [id number] [facility], family expressed desire to go to [facility] consulted Awa Bowen MD Aug 29, 2017 12:13
[2017-08-29] MEDS: LACTOBACILLUS ACIDOPHILUS TAB PO SCH ×2 (12:32→17:53)
[2017-08-29] MEDS: ACETAMINOPHEN/HYDROcodone 325 MG/5 MG TAB PO PRN ×3 (12:33→21:42)
[2017-08-29 13:33] LABS: ALBUMIN 2.7 GM/DL (3.4-5.0); ALKALINE PHOSPHATASE 89 U/L (45-117); ALT (GPT) 21 U/L (10-53); AST (GOT) 26 U/L (15-37); BLOOD UREA NITROGEN 17 MG/DL (7-18); CALCIUM 8.1 MG/DL (8.5-10.1); CHLORIDE 109 MEQ/L (98-107); CREATININE 0.89 MG/DL (0.50-1.00); GLOMERULAR FILTRATION RATE 61 ML/MIN (>89); GLUCOSE,RANDOM 128 MG/DL (74-106); SODIUM (NA) 143 MEQ/L (136-145); TOTAL BILIRUBIN ADULT 0.3 MG/DL (0.2-1.0); TOTAL PROTEIN 5.4 GM/DL (6.4-8.2)
[2017-08-29 16:00] VITALS: BP 123/70; PULSE 94; RESP 18; TEMP 97; O2SAT 95
--- NOTE | 2017-08-29 17:49 | HHI.IDPN ---
Subjective Subjective Remarks chart was reviewed 77 yo F with sp L knee replacement 08/11 presented with incision dehiscence grew out MRSA Started on daptomycin NO fever Antibiotics daptomycin Allergies: Coded Allergies: No Known Allergies (Unverified Allergy, Unknown, 08/28/17) Objective . Vital Signs Date Time Temp Pulse Resp B/P (MAP) Pulse Ox O2 Delivery O2 Flow Rate FiO2 08/29/17 16:00 97.0 94 18 123/70 (87) 95 08/29/17 12:00 97.2 93 18 142/56 (84) 94 08/29/17 09:02 99 Nasal Cannula 2.00 08/29/17 08:00 96.4 83 18 142/58 (86) 100 08/29/17 02:50 98.7 79 17 140/62 (88) 94 08/28/17 23:00 98.7 76 17 103/50 (67) 96 08/28/17 20:01 98.3 77 18 126/58 (80) 95 08/28/17 19:38 16 08/29/17 08/29/17 08/30/17 15:00 23:00 07:00 Intake Total 960 ml 350 ml Output Total 100 ml Balance 860 ml 350 ml Intake Oral 960 ml IV Total 350 ml Output Drainage Total 100 ml # Voids 4 . Laboratory Tests Test 08/27/17 22:08 08/29/17 04:21 White Blood Count 6.8 TH/MM3 Red Blood Count 3.56 MIL/MM3 Hemoglobin 10.6 GM/DL 8.7 GM/DL Hematocrit 31.4 % 25.3 % Mean Corpuscular Volume 88.2 FL Mean Corpuscular Hemoglobin 29.8 PG Mean Corpuscular Hemoglobin Concent 33.8 % Red Cell Distribution Width 14.3 % Platelet Count 253 TH/MM3 Mean Platelet Volume 6.8 FL Neutrophils (%) (Auto) 54.9 % Lymphocytes (%) (Auto) 30.7 % Monocytes (%) (Auto) 11.2 % Eosinophils (%) (Auto) 2.7 % Basophils (%) (Auto) 0.5 % Neutrophils # (Auto) 3.7 TH/MM3 Lymphocytes # (Auto) 2.1 TH/MM3 Monocytes # (Auto) 0.8 TH/MM3 Eosinophils # (Auto) 0.2 TH/MM3 Basophils # (Auto) 0.0 TH/MM3 CBC Comment DIFF FINAL Differential Comment Laboratory Tests Test 08/27/17 22:08 08/28/17 09:35 08/28/17 20:47 08/29/17 12:43 Blood Urea Nitrogen 23 MG/DL 22 MG/DL 17 MG/DL Creatinine 1.02 MG/DL 1.06 MG/DL 0.89 MG/DL Random Glucose 114 MG/DL 173 MG/DL 128 MG/DL Calcium Level 9.0 MG/DL 8.3 MG/DL 8.1 MG/DL Sodium Level 140 MEQ/L 139 MEQ/L 143 MEQ/L Potassium Level 4.2 MEQ/L 5.2 MEQ/L 4.3 MEQ/L Chloride Level 106 MEQ/L 106 MEQ/L 109 MEQ/L Carbon Dioxide Level 26.0 MEQ/L 25.1 MEQ/L 28.0 MEQ/L Anion Gap 8 MEQ/L 8 MEQ/L 6 MEQ/L Estimat Glomerular Filtration Rate 52 ML/MIN 50 ML/MIN 61 ML/MIN Total Creatine Kinase 79 U/L 61 U/L C-Reactive Protein 1.40 MG/DL Total Protein 5.4 GM/DL Albumin 2.7 GM/DL Alkaline Phosphatase 89 U/L Aspartate Amino Transf (AST/SGOT) 26 U/L Alanine Aminotransferase (ALT/SGPT) 21 U/L Total Bilirubin 0.3 MG/DL Microbiology Date/Time Source Procedure Growth Status 08/28/17 23:50 Blood Peripheral Aerobic Blood Culture Pending Received 08/28/17 23:50 Blood Peripheral Anaerobic Blood Culture Pending Received 08/28/17 23:40 Blood Peripheral Aerobic Blood Culture Pending Received 08/28/17 23:40 Blood Peripheral Anaerobic Blood Culture Pending Received 08/27/17 22:08 Wound Knee Gram Stain - Final Complete 08/27/17 22:08 Wound Culture - Final S. Aureus Mrsa Complete Physical Exam GENERAL: This is a well-nourished, well-developed patient, in no apparent distress. SKIN: No rashes, ecchymoses or lesions. Cool and dry. EYES: No scleral icterus. No injection or drainage. RESPIRATORY: Breathing unlaboured. GASTROINTESTINAL: Abdomen soft, non-tender, nondistended. Obese. MUSCULOSKELETAL: Rt knee with disc drain with sanguinous discharge. Immobilizer in place. NEUROLOGICAL: Awake and alert. non focal Psych cooperative IV line sites with no e/o infection (LUE PIV) Assessment & Plan Remarks Right knee wound infection: MRSA Right knee possible hardware infection or seeding. Obesity BMO 38.2 Acute renal failure: prerenal, baseline. Recs Start Daptomycin IV(given obesity, age and high Cr will use Dapto instead of Vanco IV. Not a candidate for Vanco IV) - Rx x 6 wks Cannot use Rifampin due to drug interactions. Check CK and monitor clinically and CK for rhabdomyolysis as patient on Pravastatin. Consider [facility] consult (pts daughter prefers) Follow cultures for Dapto susceptibility Follow clinically. PICC OPAT forms dw Janice Love MD Aug 29, 2017 17:49
[2017-08-29] MEDS ORDERED: EPIN1INJ21 IV PUSH (17:57)
[2017-08-29] MEDS ORDERED: SOLU250I IV PUSH (17:57)
[2017-08-29] MEDS ORDERED: DAPT500P IV (17:57)
[2017-08-29] MEDS ORDERED: EPIN1INJ21 SQ (17:57)
--- NOTE | 2017-08-29 18:00 | HHI.FF ---
Infusion Therapy Location of Infusion Therapy: [facility] Infusion Therapy Order Patient Information Patient Weight 101 kg Diagnosis: Coded Allergies: No Known Allergies (Unverified Allergy, Unknown, 08/28/17) Administer Medication Daptomycin 1 gram IV q 24 hours Start Treatment: Aug 30, 2017 Stop Treatment: Oct 09, 2017 Additional Information Venous access: PICC Line Additional Instructions [x] Peripheral flush and dressing changes per protocol [x] Implanted port and central ground crew lines person: * Implanted port: 10 ml Normal Saline followed by 5 ml Heparin 100 units/ml Heparin flush after each use and monthly to maintain. [] May leave port accessed during therapy. [] May leave peripheral site accessed for duration of therapy. [x] If patient has SOB or respiratory distress, check oxygen saturation. If less than 90% or clinical signs of respiratory distress, administer oxygen at 2 L/min. via nasal cannula and notify physician. [x] Anaphylaxis/Reaction orders: * Stop infusion. * Keep IV line open with saline flush. * Notify physician. * Monitor vital signs every 15 minutes until symptoms resolve. * Check Oxygen saturation; Oxygen at 2 L/min. via nasal cannula if less than 90% or clinical signs of respiratory distress. * Administer diphenhydramine (Benadryl) 25 mg IV STAT, (unless patient has received as pre-med). May repeat once, if necessary. * Solu-Cortef 250 mg IVP over 30-60 seconds, use 100 mg vials for each dissolution. * Epinephrine (1mg/1 ml) 0.3 mg subcutaneously or IVP now with any signs of respiratory distress. * Check with physician for new additional pre-med orders if patient is re- challenged or re-treated. [x] May remove PICC line when treatment complete, after confirming with Physician. [x] If the patient is admitted to the hospital, the ED, or transferred via [facility] , complete transfer form including medication reconciliation order sheet. Laboratory Tests Weekly Labs: CBC w/diff, Creatinine, LFT's (Hepatic function test), SED Rate, Serum CK Levels Janice Saldana MD Aug 29, 2017 18:00
[2017-08-29 20:00] VITALS: BP 119/56; PULSE 87; RESP 16; TEMP 98.8; O2SAT 96
[2017-08-29] MEDS: DOCUSATE SODIUM 100 MG CAP PO SCH (21:42)
[2017-08-29] MEDS: PRAVASTATIN SOD 20 MG TAB PO SCH (21:42)
[2017-08-29] MEDS: DAPTOmycin INJ 1,000 MG in SODIUM CHLORIDE 0.9% INJ 100 ML IV SCH (23:27)
[2017-08-30] VITALS: BP 135/63; PULSE 88; RESP 18; TEMP 98.6; O2SAT 96
[2017-08-30] MEDS: ACETAMINOPHEN/HYDROcodone 325 MG/5 MG TAB PO PRN ×4 (02:33→20:17)
[2017-08-30] MEDS: LACTATED RINGER'S 1000 ML INJ 1,000 ML IV SCH ×3 (03:37→20:18)
[2017-08-30 05:21] LABS: HEMATOCRIT 24.5 % (35.0-46.0); HEMOGLOBIN 8.4 GM/DL (11.6-15.3)
[2017-08-30 08:00] VITALS: BP 147/66; PULSE 87; RESP 16; TEMP 97.9; O2SAT 94
--- NOTE | 2017-08-30 09:02 | PD.ORT.PN ---
Subjective Post Op Day #: 3 Subjective Remarks She is doing well. She does not have much in the way of pain at this time. She indicates that she has no questions. Distance Walked 50 feet in the morning and 65 feet in the afternoon with PT. Objective Vitals Vital Signs Date Time Temp Pulse Resp B/P (MAP) Pulse Ox O2 Delivery O2 Flow Rate FiO2 08/30/17 00:00 98.6 88 18 135/63 (87) 96 08/29/17 20:00 98.8 87 16 119/56 (77) 96 08/29/17 16:00 97.0 94 18 123/70 (87) 95 08/29/17 12:00 97.2 93 18 142/56 (84) 94 08/29/17 09:02 99 Nasal Cannula 2.00 I/O 08/29/17 08/29/17 08/29/17 08/30/17 08/30/17 08/30/17 07:00 15:00 23:00 07:00 15:00 23:00 Intake Total 480 ml 1060 ml 450 ml Output Total 50 ml 100 ml Balance 430 ml 960 ml 450 ml Intake Oral 480 ml 960 ml IV Total 100 ml 450 ml Output Drainage Total 50 ml 100 ml # Voids 2 4 2 # Bowel Movements 0 Result Diagram: 08/30/17 0334 08/29/17 1243 Other Results Laboratory Tests Test 08/27/17 22:08 08/28/17 09:35 08/28/17 20:47 08/29/17 04:21 Red Blood Count 3.56 MIL/MM3 (4.00-5.30) Hemoglobin 10.6 GM/DL (11.6-15.3) 8.7 GM/DL (11.6-15.3) Hematocrit 31.4 % (35.0-46.0) 25.3 % (35.0-46.0) Mean Platelet Volume 6.8 FL (7.0-11.0) Monocytes (%) (Auto) 11.2 % (0.0-8.0) Blood Urea Nitrogen 23 MG/DL (7-18) 22 MG/DL (7-18) Creatinine 1.02 MG/DL (0.50-1.00) 1.06 MG/DL (0.50-1.00) Random Glucose 114 MG/DL (74-106) 173 MG/DL (74-106) Estimat Glomerular Filtration Rate 52 ML/MIN (>89) 50 ML/MIN (>89) Calcium Level 8.3 MG/DL (8.5-10.1) Potassium Level 5.2 MEQ/L (3.5-5.1) C-Reactive Protein 1.40 MG/DL (0.00-0.30) Test 08/29/17 12:43 08/30/17 03:34 Random Glucose 128 MG/DL (74-106) Total Protein 5.4 GM/DL (6.4-8.2) Albumin 2.7 GM/DL (3.4-5.0) Calcium Level 8.1 MG/DL (8.5-10.1) Chloride Level 109 MEQ/L (98-107) Estimat Glomerular Filtration Rate 61 ML/MIN (>89) Hemoglobin 8.4 GM/DL (11.6-15.3) Hematocrit 24.5 % (35.0-46.0) Erythrocyte Sedimentation Rate 48 mm/hr (0-30) Objective Remarks She is resting comfortably, out of bed in a chair. The neurovascular status is intact. Dressing is dry and intact. Assessment & Plan Ortho Post Op Day #: 3 Problem List: (1) Status post total left knee replacement ICD Codes: Z96.652 - Presence of left artificial knee joint Plan: Continue postop care and begin PT. We are not going to work on motion at this time. We are going to have her get quadriceps strengthening with straight leg raises and quad sets. She is to ambulate with a brace on at this time. After about 2 weeks, we will begin some motion with the knee. (2) Infection of total left knee replacement ICD Codes: T84.54XA - Infection and inflammatory reaction due to internal left knee prosthesis, initial encounter; Z96.652 - Presence of left artificial knee joint Status: Acute Qualifiers: Qualified Codes: T84.54XA - Infection and inflammatory reaction due to internal left knee prosthesis, initial encounter; Z96.652 - Presence of left artificial knee joint Plan: A PICC line has been ordered. An infectious disease consultation has been ordered. Patient has been seen by Dr. Fernandez. I have discussed the patient with Dr. Rios. The current plan would be to continue with parenteral antibiotics according to the sensitivities for 6 weeks. After that suppression might be necessary. The antibiotics have been adjusted. She will receive therapeutic antibiotics for 6 weeks. She will be reassessed at that time. The consideration at that time would be easier for continuation with suppressive antibiotics for a defined period of time, continuation with suppressive antibiotics indefinitely or, if the joint is no longer benign, removal of implants and placement of an antibiotic spacer. This would require an additional 6 weeks antibiotics followed by 6 weeks without antibiotics and subsequent reimplantation if she is benign. If she can retain her current prosthesis I would prefer doing that rather than removing the prosthesis and using a spacer. (3) Wound dehiscence ICD Codes: T81.30XA - Disruption of wound, unspecified, initial encounter Status: Resolved Plan: This has been repaired. Assessment and Plan Condition: Good. Orthopedically stable. DVT prophylaxis: TEDs, aspirin, sequentials. Discharge plans: custodial facility versus CIR versus home with home health care. An appointment was scheduled through the office but will need to be rescheduled. Salo Mari MD ([place]) Aug 30, 2017 09:02
[2017-08-30] MEDS: LOSARTAN 50 MG TAB PO SCH (09:24)
[2017-08-30] MEDS: MEMANTINE HCL 5 MG TAB PO SCH (09:24)
[2017-08-30] MEDS: PANTOPRAZOLE SOD 40 MG DELAYED RELEASE TAB PO SCH (09:24)
[2017-08-30] MEDS: HALOPERIDOL 1 MG TAB PO SCH ×2 (09:24→20:17)
[2017-08-30] MEDS: DOCUSATE SODIUM 100 MG CAP PO SCH ×2 (09:24→20:17)
[2017-08-30] MEDS: LACTOBACILLUS ACIDOPHILUS TAB PO SCH ×3 (09:24→17:30)
[2017-08-30] MEDS: VITAMIN E 400 UNIT CAP PO SCH (09:24)
[2017-08-30] MEDS: CHOLECALCIFEROL (VIT D3) 1000 UNIT TAB PO SCH (09:25)
[2017-08-30] MEDS: ASCORBIC ACID 500 MG TAB PO SCH (09:25)
[2017-08-30] MEDS: ASPIRIN EC 81 MG TABEC PO SCH ×2 (09:25→20:17)
[2017-08-30] MEDS: FLUTICASONE PROPIONATE 50 MCG/ACT 16 GM NASAL SPRAY EACH NARE SCH (09:27)
[2017-08-30] MEDS ORDERED: WALKER WHEELS/F1 MIS (11:18)
[2017-08-30 12:00] VITALS: BP 163/70; PULSE 97; RESP 16; TEMP 98.5; O2SAT 99
[2017-08-30] MEDS: MORPHINE SULFATE 4 MG/ML INJ IV PUSH PRN (12:50)
[2017-08-30 13:40] VITALS: BP 159/72
[2017-08-30 16:00] VITALS: BP 136/61; PULSE 90; RESP 17; TEMP 98.4; O2SAT 100
[2017-08-30 20:00] VITALS: BP 132/59; PULSE 95; RESP 16; TEMP 98.4; O2SAT 96
[2017-08-30] MEDS: PRAVASTATIN SOD 20 MG TAB PO SCH (20:17)
[2017-08-30] MEDS: DAPTOmycin INJ 1,000 MG in SODIUM CHLORIDE 0.9% INJ 100 ML IV SCH (22:22)
--- NOTE | 2017-08-30 22:57 | HHI.PR ---
Subjective Remarks Patient seen this morning around 10 AM.. Says she is feeling all right. Reports pain is controlled. Objective Vital Signs Date Time Temp Pulse Resp B/P (MAP) Pulse Ox O2 Delivery O2 Flow Rate FiO2 08/30/17 20:00 98.4 95 16 132/59 (83) 96 08/30/17 16:00 98.4 90 17 136/61 (86) 100 08/30/17 13:40 159/72 (101) 08/30/17 12:00 98.5 97 16 163/70 (101) 99 08/30/17 08:00 97.9 87 16 147/66 (93) 94 08/30/17 00:00 98.6 88 18 135/63 (87) 96 I/O 08/29/17 08/29/17 08/29/17 08/30/17 08/30/17 08/30/17 07:00 15:00 23:00 07:00 15:00 23:00 Intake Total 480 ml 1060 ml 450 ml 100 ml 1060 ml Output Total 50 ml 100 ml Balance 430 ml 960 ml 450 ml 100 ml 1060 ml Intake Oral 480 ml 960 ml 960 ml IV Total 100 ml 450 ml 100 ml 100 ml Output Drainage Total 50 ml 100 ml # Voids 2 4 2 5 # Bowel Movements 0 1 Result Diagram: 08/30/17 0334 08/29/17 1243 Objective Remarks GENERAL: patient sitting up in bed. Appears comfortable. SKIN: Warm and dry. HEAD: Normocephalic. EYES: No scleral icterus. No injection or drainage. NECK: Supple, trachea midline. No JVD. CARDIOVASCULAR: Regular rate and rhythm without murmurs, gallops, or rubs. RESPIRATORY: Breath sounds equal bilaterally. No accessory muscle use. GASTROINTESTINAL: Abdomen soft, non-tender, nondistended. MUSCULOSKELETAL: No cyanosis, or edema. right knee wound dressed. BACK: Nontender without obvious deformity. No CVA tenderness. A/P Assessment and Plan 08/30. Patient seen and examined. Patient will need PICC line when approved by infectious disease. PT following. 77-year-old female /Status post I and D of postop wound dehiscence 08/27 - MRSA //S/P total knee replacement 08/11. Orthopedic surgery following. growing MRS- ID consulted and started on Cubicin. FF CK level As needed pain meds PT eval and treat.daily //History of hypertension continue on losartan /History of Hperlipidemia- on statins //History of schizophrenia Continue on haloperidol and Namenda. //Acute kidney injury prerenal in ratio. //Mild HYperkalemia on labs Patient continue on IV fluids 80 cc an hour check BMP today Continue on aspirin 81 mg twice daily for DVT prophylaxis Continue on home PPI Discharge [id number] [facility] family expressed desire to go to [facility] consulted Discharge Planning the rehabilitation/SNF when a PICC line placed by ID. We'll need IV antibiotics prolonged course. Sg Hernandez MD Aug 30, 2017 22:57
[2017-08-31] VITALS: BP 130/62; PULSE 92; RESP 16; TEMP 98.1; O2SAT 95
[2017-08-31] MEDS: LACTATED RINGER'S 1000 ML INJ 1,000 ML IV SCH ×2 (05:17→12:48)
[2017-08-31] MEDS: ACETAMINOPHEN/HYDROcodone 325 MG/5 MG TAB PO PRN ×4 (05:18→22:35)
[2017-08-31 08:00] VITALS: BP 152/65; PULSE 96; RESP 17; TEMP 98.4; O2SAT 99
--- NOTE | 2017-08-31 08:46 | PD.ORT.PN ---
Subjective Post Op Day #: 3 Subjective Remarks She is doing well. She does not have much in the way of pain at this time. She indicates that she has no questions. She has not yet had a PICC line inserted. Distance Walked 60 feet and 70 feet with PT. Objective Vitals Vital Signs Date Time Temp Pulse Resp B/P (MAP) Pulse Ox O2 Delivery O2 Flow Rate FiO2 08/31/17 00:00 98.1 92 16 130/62 (84) 95 08/30/17 20:00 98.4 95 16 132/59 (83) 96 08/30/17 16:00 98.4 90 17 136/61 (86) 100 08/30/17 13:40 159/72 (101) 08/30/17 12:00 98.5 97 16 163/70 (101) 99 I/O 08/30/17 08/30/17 08/30/17 08/31/17 08/31/17 08/31/17 07:00 15:00 23:00 07:00 15:00 23:00 Intake Total 100 ml 2160 ml 1440 ml Balance 100 ml 2160 ml 1440 ml Intake Oral 960 ml 240 ml IV Total 100 ml 1200 ml 1200 ml # Voids 2 5 2 # Bowel Movements 1 0 Result Diagram: 08/30/17 0334 08/29/17 1243 Objective Remarks She is resting comfortably, out of bed in a chair. The neurovascular status is intact. Dressing is dry and intact. There is no erythema. There is a small bloody spot on the dressing but it is remote. Assessment & Plan Ortho Post Op Day #: 3 Problem List: (1) Status post total left knee replacement ICD Codes: Z96.652 - Presence of left artificial knee joint Plan: Continue postop care and begin PT. We are not going to work on motion at this time. We are going to have her get quadriceps strengthening with straight leg raises and quad sets. She is to ambulate with a brace on at this time. After about 2 weeks, we will begin some motion with the knee. (2) Infection of total left knee replacement ICD Codes: T84.54XA - Infection and inflammatory reaction due to internal left knee prosthesis, initial encounter; Z96.652 - Presence of left artificial knee joint Status: Acute Qualifiers: Qualified Codes: T84.54XA - Infection and inflammatory reaction due to internal left knee prosthesis, initial encounter; Z96.652 - Presence of left artificial knee joint Plan: A PICC line has been ordered. An infectious disease consultation has been ordered. Patient has been seen by Dr. Fernandez. I have discussed the patient with Dr. Rios. The current plan would be to continue with parenteral antibiotics according to the sensitivities for 6 weeks. After that suppression might be necessary. The antibiotics have been adjusted. She will receive therapeutic antibiotics for 6 weeks. She will be reassessed at that time. The consideration at that time would be easier for continuation with suppressive antibiotics for a defined period of time, continuation with suppressive antibiotics indefinitely or, if the joint is no longer benign, removal of implants and placement of an antibiotic spacer. This would require an additional 6 weeks antibiotics followed by 6 weeks without antibiotics and subsequent reimplantation if she is benign. If she can retain her current prosthesis I would prefer doing that rather than removing the prosthesis and using a spacer. (3) Wound dehiscence ICD Codes: T81.30XA - Disruption of wound, unspecified, initial encounter Status: Resolved Plan: This has been repaired. Assessment and Plan Condition: Good. Orthopedically stable. DVT prophylaxis: TEDs, aspirin, sequentials. Discharge plans: [facility] facility versus CIR versus home with home health care. An appointment was scheduled through the office but will need to be rescheduled. A PICC line needs to be placed. Arrangements are being made to hopefully go to [facility] perhaps a [facility] facility. Salo Mari MD ([place]) Aug 31, 2017 08:46
--- NOTE | 2017-08-31 08:56 | HHI.FF ---
Face to Face Verification Diagnosis: (1) Status post total right knee replacement (2) Infection of total left knee replacement Physical Therapy Gait training Knee: Total knee, Protocol: Left, Gait training, Full weight bearing Right LE Weight Bearing: WB as tolerated Right LE Range of Motion: No ROM (No range of motion for the first 2 weeks postoperatively. After that, it is likely that she will be able to go from 0 extension to 30 of flexion. At 3 weeks, the range will go from 0 extension to 45 of flexion. If this is not tolerated then leave it at its 30 of flexion. This will hold until 6 weeks at which time she will be progressively increasing range of motion gently.) Nursing Nursing: Dressing changes (To begin at postoperative day 7) Dressing Changes: Do not change dressing (Until postoperative day 7), Daily dressing change (After postoperative day 7), Coverderm/Primapore Additional Instructions Alternate asif to be removed on postoperative day 14 with Steri-Strips placed between. Remaining asif are to be removed on postoperative day 16-17 with Steri-Strips to be placed. If there is any separation of the wound, the office ([phone]) should be called. I have seen patient Kristen Goncalves on 08/31/17. My clinical findings support the need for the requested home health care services because: Ltd mobility - disease progression Deconditioned w/ increased weakness Limited ability to care for self High risk of falls Infection w/ risk of complications Injectable med education/admin I certify that my clinical findings support that this patient is homebound because: Post-op weakness Impaired cognitive ability/safety Unsteady gait/balance Unsafe to leave home unassisted Salo Mari MD ([place]) Aug 31, 2017 08:56
[2017-08-31] MEDS: DOCUSATE SODIUM 100 MG CAP PO SCH ×2 (09:37→20:35)
[2017-08-31] MEDS: HALOPERIDOL 1 MG TAB PO SCH ×2 (09:38→20:35)
[2017-08-31] MEDS: ASPIRIN EC 81 MG TABEC PO SCH ×2 (09:38→20:35)
[2017-08-31] MEDS: LOSARTAN 50 MG TAB PO SCH (09:38)
[2017-08-31] MEDS: VITAMIN E 400 UNIT CAP PO SCH (09:39)
[2017-08-31] MEDS: CHOLECALCIFEROL (VIT D3) 1000 UNIT TAB PO SCH (09:39)
[2017-08-31] MEDS: ASCORBIC ACID 500 MG TAB PO SCH (09:39)
[2017-08-31] MEDS: PANTOPRAZOLE SOD 40 MG DELAYED RELEASE TAB PO SCH (09:39)
[2017-08-31] MEDS: LACTOBACILLUS ACIDOPHILUS TAB PO SCH ×3 (09:39→18:31)
[2017-08-31] MEDS: MEMANTINE HCL 5 MG TAB PO SCH (09:40)
[2017-08-31 12:00] VITALS: BP 139/63; PULSE 89; RESP 18; TEMP 98.1; O2SAT 97
[2017-08-31] MEDS: FLUTICASONE PROPIONATE 50 MCG/ACT 16 GM NASAL SPRAY EACH NARE SCH (12:51)
[2017-08-31 16:00] VITALS: BP 137/63; PULSE 86; RESP 16; TEMP 98.7; O2SAT 98
--- NOTE | 2017-08-31 16:46 | HHI.PR ---
Subjective Remarks Patient seen today around 1 PM. Says she is feeling all right. Denies any chest pain, shortness of breath, nausea, vomiting. Discussion with daughter at bedside who is upset about previous admission. She says that she is upset that patient was not seen by psychiatrist prior to hospital discharge, feels she was not psychiatrically ready for discharge, however she did return to normal mental status after arriving to rehabilitation. I have explained to patient and daughter that given her improvement in the hospital, I do not feel that psychiatry follow-up would've had anything extra to add. Daughter says she had wanted to talk to me prior to discharge, however is unfortunately I did not receive any such communication prior to her discharge. Objective Vital Signs Date Time Temp Pulse Resp B/P (MAP) Pulse Ox O2 Delivery O2 Flow Rate FiO2 08/31/17 12:00 98.1 89 18 139/63 (88) 97 08/31/17 08:00 98.4 96 17 152/65 (94) 99 08/31/17 00:00 98.1 92 16 130/62 (84) 95 08/30/17 20:00 98.4 95 16 132/59 (83) 96 I/O 08/30/17 08/30/17 08/30/17 08/31/17 08/31/17 08/31/17 07:00 15:00 23:00 07:00 15:00 23:00 Intake Total 100 ml 2160 ml 1440 ml Balance 100 ml 2160 ml 1440 ml Intake Oral 960 ml 240 ml IV Total 100 ml 1200 ml 1200 ml # Voids 2 5 2 # Bowel Movements 1 0 Result Diagram: 08/30/17 0334 08/29/17 1243 Objective Remarks GENERAL: patient sitting up in bed. Appears comfortable.no change on exam. SKIN: Warm and dry. HEAD: Normocephalic. EYES: No scleral icterus. No injection or drainage. NECK: Supple, trachea midline. No JVD. CARDIOVASCULAR: Regular rate and rhythm without murmurs, gallops, or rubs. RESPIRATORY: Breath sounds equal bilaterally. No accessory muscle use. GASTROINTESTINAL: Abdomen soft, non-tender, nondistended. MUSCULOSKELETAL: No cyanosis, or edema. right knee wound dressed. BACK: Nontender without obvious deformity. No CVA tenderness. A/P Assessment and Plan 08/31. PICC line to be placed. Discharge to rehabilitation with IV antibiotics tomorrow. Discussed with case management and nursing at [facility]. 08/30. Patient seen and examined. Patient will need PICC line when approved by infectious disease. PT following. 77-year-old female /Status post I and D of postop wound dehiscence 08/27 - MRSA //S/P total knee replacement 08/11. Orthopedic surgery following. growing MRS- ID consulted and started on Cubicin. FF CK level As needed pain meds PT eval and treat.daily //History of hypertension continue on losartan /History of Hyperlipidemia- on statins //History of schizophrenia Continue on haloperidol and Namenda. //Acute kidney injury prerenal in ratio. = Resolved //Mild HYperkalemia on labs Patient continue on IV fluids 80 cc an hour check BMP today = Resolved //Continue on aspirin 81 mg twice daily for DVT prophylaxis //Continue on home PPI //[facility]charge [id number] [facility] desire to go [facility] consulted Discharge Planning to rehabilitation/SNF when a PICC line placed by ID. We'll need IV antibiotics prolonged course. =likely discharge to rehabilitation tomorrow. Sg Hernandez MD Aug 31, 2017 16:46
[2017-08-31 20:00] VITALS: BP 130/63; PULSE 90; RESP 16; TEMP 99.5; O2SAT 100
[2017-08-31] MEDS: PRAVASTATIN SOD 20 MG TAB PO SCH (20:35)
[2017-08-31] MEDS: DAPTOmycin INJ 1,000 MG in SODIUM CHLORIDE 0.9% INJ 100 ML IV SCH (22:28)
[2017-09-01] VITALS: BP 125/69; PULSE 82; RESP 16; TEMP 98.9; O2SAT 100
[2017-09-01] MEDS: LACTATED RINGER'S 1000 ML INJ 1,000 ML IV SCH (06:11)
[2017-09-01] MEDS: ACETAMINOPHEN/HYDROcodone 325 MG/5 MG TAB PO PRN ×2 (06:12→19:54)
--- NOTE | 2017-09-01 07:15 | PD.ORT.PN ---
Subjective Post Op Day #: 4 Subjective Remarks She is doing well. She does not have much in the way of pain at this time. She indicates that she has no questions. She still has not yet had a PICC line inserted. Distance Walked 80 feet, then 110 feet with PT. Objective Vitals Vital Signs Date Time Temp Pulse Resp B/P (MAP) Pulse Ox O2 Delivery O2 Flow Rate FiO2 09/01/17 00:00 98.9 82 16 125/69 (87) 100 08/31/17 20:00 99.5 90 16 130/63 (85) 100 08/31/17 19:30 18 08/31/17 16:00 98.7 86 16 137/63 (87) 98 08/31/17 12:00 98.1 89 18 139/63 (88) 97 08/31/17 08:00 98.4 96 17 152/65 (94) 99 I/O 08/31/17 08/31/17 08/31/17 09/01/17 09/01/17 09/01/17 07:00 15:00 23:00 07:00 15:00 23:00 Intake Total 1440 ml 560 ml 1680 ml 340 ml Balance 1440 ml 560 ml 1680 ml 340 ml Intake Oral 240 ml 1200 ml 240 ml IV Total 1200 ml 560 ml 480 ml 100 ml # Voids 2 5 2 # Bowel Movements 0 1 0 Result Diagram: 08/30/17 0334 08/29/17 1243 Objective Remarks She is resting comfortably, out of bed in a chair. The neurovascular status is intact. Dressing is dry and intact. There is no erythema. There is a small bloody spot on the dressing but it is remote. There is no change from yesterday. Assessment & Plan Ortho Post Op Day #: 4 Problem List: (1) Status post total left knee replacement ICD Codes: Z96.652 - Presence of left artificial knee joint Plan: Continue postop care and begin PT. We are not going to work on motion at this time. We are going to have her get quadriceps strengthening with straight leg raises and quad sets. She is to ambulate with a brace on at this time. After about 2 weeks, we will begin some motion with the knee. (2) Infection of total left knee replacement ICD Codes: T84.54XA - Infection and inflammatory reaction due to internal left knee prosthesis, initial encounter; Uche96.652 - Presence of left artificial knee joint Status: Acute Qualifiers: Qualified Codes: T84.54XA - Infection and inflammatory reaction due to internal left knee prosthesis, initial encounter; Z96.652 - Presence of left artificial knee joint Plan: A PICC line has been ordered. An infectious disease consultation has been ordered. Patient has been seen by Dr. Fernandez. I have discussed the patient with Dr. Rios. The current plan would be to continue with parenteral antibiotics according to the sensitivities for 6 weeks. After that suppression might be necessary. The antibiotics have been adjusted. She will receive therapeutic antibiotics for 6 weeks. She will be reassessed at that time. The consideration at that time would be easier for continuation with suppressive antibiotics for a defined period of time, continuation with suppressive antibiotics indefinitely or, if the joint is no longer benign, removal of implants and placement of an antibiotic spacer. This would require an additional 6 weeks antibiotics followed by 6 weeks without antibiotics and subsequent reimplantation if she is benign. If she can retain her current prosthesis I would prefer doing that rather than removing the prosthesis and using a spacer. (3) Wound dehiscence ICD Codes: T81.30XA - Disruption of wound, unspecified, initial encounter Status: Resolved Plan: This has been repaired. Assessment and Plan Condition: Good. Orthopedically stable. DVT prophylaxis: TEDs, aspirin, sequentials. Discharge plans: senior living facility versus home with home health care. An appointment was scheduled through the office but will need to be rescheduled. A PICC line needs to be placed. This has been ordered by 2 physicians and we await this. Arrangements are being made to hopefully go to a correction facility. CIR has refused. Salo Mari MD ([place]) Sep 01, 2017 07:15
[2017-09-01 08:00] VITALS: BP 133/63; PULSE 82; RESP 17; TEMP 98; O2SAT 98
[2017-09-01] MEDS: FLUTICASONE PROPIONATE 50 MCG/ACT 16 GM NASAL SPRAY EACH NARE SCH (09:00)
[2017-09-01] MEDS: MEMANTINE HCL 5 MG TAB PO SCH (09:00)
[2017-09-01] MEDS: DOCUSATE SODIUM 100 MG CAP PO SCH ×2 (09:00→19:53)
[2017-09-01] MEDS: LACTOBACILLUS ACIDOPHILUS TAB PO SCH ×3 (09:03→17:38)
[2017-09-01] MEDS: VITAMIN E 400 UNIT CAP PO SCH (09:03)
[2017-09-01] MEDS: LOSARTAN 50 MG TAB PO SCH (09:04)
[2017-09-01] MEDS: PANTOPRAZOLE SOD 40 MG DELAYED RELEASE TAB PO SCH (09:04)
[2017-09-01] MEDS: CHOLECALCIFEROL (VIT D3) 1000 UNIT TAB PO SCH (09:04)
[2017-09-01] MEDS: ASCORBIC ACID 500 MG TAB PO SCH (09:04)
[2017-09-01] MEDS: HALOPERIDOL 1 MG TAB PO SCH ×2 (09:04→19:53)
[2017-09-01] MEDS: ASPIRIN EC 81 MG TABEC PO SCH ×2 (09:04→19:53)
[2017-09-01 12:00] VITALS: BP 120/58; PULSE 90; RESP 17; TEMP 98.4; O2SAT 98
--- NOTE | 2017-09-01 12:25 | HHI.IDPN ---
Subjective Subjective Remarks chart was reviewed 77 yo F with sp L knee replacement 08/11 presented with incision dehiscence grew out MRSA Started on daptomycin NO fever Antibiotics daptomycin Allergies: Coded Allergies: No Known Allergies (Unverified Allergy, Unknown, 08/28/17) Objective . Vital Signs Date Time Temp Pulse Resp B/P (MAP) Pulse Ox O2 Delivery O2 Flow Rate FiO2 09/01/17 08:00 98.0 82 17 133/63 (86) 98 09/01/17 00:00 98.9 82 16 125/69 (87) 100 08/31/17 20:00 99.5 90 16 130/63 (85) 100 08/31/17 19:30 18 08/31/17 16:00 98.7 86 16 137/63 (87) 98 Physical Exam GENERAL: This is a well-nourished, well-developed patient, in no apparent distress. SKIN: No rashes, ecchymoses or lesions. Cool and dry. EYES: No scleral icterus. No injection or drainage. RESPIRATORY: Breathing unlaboured. GASTROINTESTINAL: Abdomen soft, non-tender, nondistended. Obese. MUSCULOSKELETAL: Rt knee with disc drain with sanguinous discharge. Immobilizer in place. NEUROLOGICAL: Awake and alert. non focal Psych cooperative IV line sites with no e/o infection (LUE PIV) Assessment & Plan Remarks Right knee wound infection: MRSA Right knee possible hardware infection or seeding. Obesity BMO 38.2 Acute renal failure: prerenal, baseline. Recs Continue Daptomycin IV(given obesity, age and high Cr will use Dapto instead of Vanco IV. Not a candidate for Vanco IV) - Rx x 6 wks Cannot use Rifampin due to drug interactions. Check CK and monitor clinically and CK for rhabdomyolysis as patient on Pravastatin. Consider [facility] consult (pts daughter prefers) Follow cultures for Dapto susceptibility Follow clinically. PICC OPAT forms Amanda Rios MD Sep 01, 2017 12:25
[2017-09-01 16:00] VITALS: BP 161/70; PULSE 89; RESP 18; TEMP 99.2; O2SAT 96
[2017-09-01] MEDS: PRAVASTATIN SOD 20 MG TAB PO SCH (19:53)
[2017-09-01 20:00] VITALS: BP 125/75; PULSE 96; RESP 18; TEMP 99.3; O2SAT 94
[2017-09-01] MEDS: DAPTOmycin INJ 1,000 MG in SODIUM CHLORIDE 0.9% INJ 100 ML IV SCH (22:07)
--- NOTE | 2017-09-01 23:56 | HHI.PR ---
Subjective Remarks Patient seen today around 1 PM. Says she is feeling all right. Denies any chest. This breath. She is alert and oriented 4. Objective Vital Signs Date Time Temp Pulse Resp B/P (MAP) Pulse Ox O2 Delivery O2 Flow Rate FiO2 09/01/17 20:00 99.3 96 18 125/75 (92) 94 09/01/17 16:00 99.2 89 18 161/70 (100) 96 09/01/17 12:00 98.4 90 17 120/58 (78) 98 09/01/17 08:00 98.0 82 17 133/63 (86) 98 09/01/17 00:00 98.9 82 16 125/69 (87) 100 I/O 09/01/17 09/01/17 09/01/17 09/02/17 09/02/17 09/02/17 07:00 15:00 23:00 07:00 15:00 23:00 Intake Total 340 ml 1560 ml Balance 340 ml 1560 ml Intake Oral 240 ml 960 ml IV Total 100 ml 600 ml # Voids 2 8 # Bowel Movements 0 2 Result Diagram: 08/30/17 0334 08/29/17 1243 Objective Remarks GENERAL: patient sitting up in bed. Appears comfortable. SKIN: Warm and dry.PICC line right upper extremity. HEAD: Normocephalic. EYES: No scleral icterus. No injection or drainage. NECK: Supple, trachea midline. No JVD. CARDIOVASCULAR: Regular rate and rhythm without murmurs, gallops, or rubs. RESPIRATORY: Breath sounds equal bilaterally. No accessory muscle use. GASTROINTESTINAL: Abdomen soft, non-tender, nondistended. MUSCULOSKELETAL: No cyanosis, or edema. right knee wound dressed.no change. BACK: Nontender without obvious deformity. No CVA tenderness. A/P Assessment and Plan 09/01. PICC line placed. Continue IV antibiotics. Patient cleared for discharge to rehabilitation. 08/31. PICC line to be placed. Discharge to rehabilitation with IV antibiotics tomorrow. Discussed with case management and nursing at [facility]. 08/30. Patient seen and examined. Patient will need PICC line when approved by infectious disease. PT following. 77-year-old female /Status post I and D of postop wound dehiscence 08/27 - MRSA //S/P total knee replacement 08/11. Orthopedic surgery following. growing MRS- ID consulted and started on Cubicin. FF CK level As needed pain meds PT eval and treat.daily //History of hypertension continue on losartan /History of Hyperlipidemia- on statins //History of schizophrenia Continue on haloperidol and Namenda. //Acute kidney injury prerenal in ratio. = Resolved //Mild HYperkalemia on labs Patient continue on IV fluids 80 cc an hour check BMP today = Resolved //Continue on aspirin 81 mg twice daily for DVT prophylaxis //Continue on home PPI //[facility] [id number] [facility] desire to go [facility] consulted Discharge Planning PICC line placed. Continue IV antibiotics to complete course as per ID. Sg Hernandez MD Sep 01, 2017 23:56
[2017-09-02] VITALS: BP 144/63; PULSE 88; RESP 20; TEMP 98.4; O2SAT 96
--- NOTE | 2017-09-02 07:17 | PD.ORT.PN ---
Subjective Post Op Day #: 5 Subjective Remarks She says that she is "better". She does not have much in the way of pain at this time. She indicates that she has no questions. She thinks that she will probably be going home with home health care. She has had a PICC line inserted. Distance Walked 120 feet twice with PT. Objective Vitals Vital Signs Date Time Temp Pulse Resp B/P (MAP) Pulse Ox O2 Delivery O2 Flow Rate FiO2 09/02/17 00:00 98.4 88 20 144/63 (90) 96 09/01/17 20:00 99.3 96 18 125/75 (92) 94 09/01/17 16:00 99.2 89 18 161/70 (100) 96 09/01/17 12:00 98.4 90 17 120/58 (78) 98 09/01/17 08:00 98.0 82 17 133/63 (86) 98 I/O 09/01/17 09/01/17 09/01/17 09/02/17 09/02/17 09/02/17 07:00 15:00 23:00 07:00 15:00 23:00 Intake Total 340 ml 1560 ml 240 ml Balance 340 ml 1560 ml 240 ml Intake Oral 240 ml 960 ml 240 ml IV Total 100 ml 600 ml # Voids 2 8 2 # Bowel Movements 0 2 Result Diagram: 08/30/17 0334 08/29/17 1243 Objective Remarks She is resting comfortably, out of bed in a chair. The neurovascular status is intact. Dressing is dry and intact. There is no erythema. There is no induration. There are 2 small bloody spots on the dressing that appear to be remote. There is no change from yesterday. Assessment & Plan Ortho Post Op Day #: 5 Problem List: (1) Status post total left knee replacement ICD Codes: Z96.652 - Presence of left artificial knee joint Plan: Continue postop care and begin PT. We are not going to work on motion at this time. We are going to have her get quadriceps strengthening with straight leg raises and quad sets. She is to ambulate with a brace on at this time. After about 2 weeks, we will begin some motion with the knee. (2) Infection of total left knee replacement ICD Codes: T84.54XA - Infection and inflammatory reaction due to internal left knee prosthesis, initial encounter; Z96.652 - Presence of left artificial knee joint Status: Acute Qualifiers: Qualified Codes: T84.54XA - Infection and inflammatory reaction due to internal left knee prosthesis, initial encounter; Z96.652 - Presence of left artificial knee joint Plan: A PICC line has been inserted. An infectious disease consultation has been completed by Dr. Fernandez. I have discussed the patient with Dr. Rios. The current plan would be to continue with parenteral antibiotics according to the sensitivities for 6 weeks. After that suppression might be necessary. The antibiotics have been adjusted. She will receive therapeutic antibiotics for 6 weeks. She will be reassessed at that time. The consideration at that time would be easier for continuation with suppressive antibiotics for a defined period of time, continuation with suppressive antibiotics indefinitely or, if the joint is no longer benign, removal of implants and placement of an antibiotic spacer. This would require an additional 6 weeks antibiotics followed by 6 weeks without antibiotics and subsequent reimplantation if she is benign. If she can retain her current prosthesis I would prefer doing that rather than removing the prosthesis and using a spacer. (3) Wound dehiscence ICD Codes: T81.30XA - Disruption of wound, unspecified, initial encounter Status: Resolved Plan: This has been repaired. Assessment and Plan Condition: Good. Orthopedically stable. DVT prophylaxis: TEDs, aspirin, sequentials. Discharge plans: jail facility versus home with home health care. [facility] has refused. An appointment was scheduled through the office but will need to be rescheduled. Salo Mari MD ([facility]) September 02, 2017 07:17
[2017-09-02] MEDS: DOCUSATE SODIUM 100 MG CAP PO SCH (07:29)
[2017-09-02] MEDS: FLUTICASONE PROPIONATE 50 MCG/ACT 16 GM NASAL SPRAY EACH NARE SCH (07:29)
[2017-09-02] MEDS: CHOLECALCIFEROL (VIT D3) 1000 UNIT TAB PO SCH (07:31)
[2017-09-02] MEDS: MEMANTINE HCL 5 MG TAB PO SCH (07:31)
[2017-09-02] MEDS: LOSARTAN 50 MG TAB PO SCH (07:31)
[2017-09-02] MEDS: LACTOBACILLUS ACIDOPHILUS TAB PO SCH ×3 (07:31→18:00)
[2017-09-02] MEDS: ASCORBIC ACID 500 MG TAB PO SCH (07:31)
[2017-09-02] MEDS: HALOPERIDOL 1 MG TAB PO SCH (07:31)
[2017-09-02] MEDS: VITAMIN E 400 UNIT CAP PO SCH (07:32)
[2017-09-02] MEDS: ASPIRIN EC 81 MG TABEC PO SCH (07:32)
[2017-09-02] MEDS: PANTOPRAZOLE SOD 40 MG DELAYED RELEASE TAB PO SCH (07:32)
--- NOTE | 2017-09-02 07:39 | HHI.DS ---
Discharge Summary Admission Date Aug 27, 2017 at 22:32 Discharge Date: September 02, 2017 Admitting Diagnosis Dehiscence left total knee wound. Diagnosis: (1) Status post total left knee replacement Diagnosis: Principal ICD Codes: Z96.652 - Presence of left artificial knee joint (2) Infection of total left knee replacement Diagnosis: Principal ICD Codes: T84.54XA - Infection and inflammatory reaction due to internal left knee prosthesis, initial encounter; Z96.652 - Presence of left artificial knee joint Status: Acute (3) Wound dehiscence Diagnosis: Principal ICD Codes: T81.30XA - Disruption of wound, unspecified, initial encounter Status: Resolved Procedures Irrigation and debridement and repair left total knee wound dehiscence on 2017. Brief History This is a 77 year old female patient had a total knee replacement carried out CBC/BMP: 08/30/17 0334 08/29/17 1243 PE at Discharge She is resting comfortably, out of bed in a chair. The neurovascular status is intact. Dressing is dry and intact. There is no erythema. There is no induration. There are 2 small bloody spots on the dressing that appear to be remote. There is no change from yesterday. Transfer Summary Patient will need wound care. Her current dressing should be changed at 2 weeks postop. At that time, alternate asif will be removed. Steri-Strips should be placed between these alternate asif. 2 days later, the remaining asif will be removed unless the wound has . Steri-Strips will be applied at that time and be allowed to come off as a come. Regarding physical therapy, we are not going to work on motion at this time. We are going to have her get quadriceps strengthening with straight leg raises and quad sets. She is to ambulate with a brace on at this time. After about 2 weeks, we will begin some motion with the knee. No range of motion for the first 2 weeks postoperatively. After that, it is likely that she will be able to go from 0 extension to 30 of flexion. At 3 weeks, the range will go from 0 extension to 45 of flexion. If this is not tolerated then leave it at its 30 of flexion. This will hold until 6 weeks at which time she will be progressively increasing range of motion gently. Hospital Course The patient was seen in the emergency department on 08/27/2017. At that time, she was evaluated and taken to the operating room directly. She had irrigation debridement and repair of her dehiscence. Cultures were obtained during the emergency department visit. She was then taken to the floor and left in the knee immobilizer. Postoperative care was initiated with physical therapy to walker with a knee immobilizer in place. She was on vancomycin and Ancef initially and subsequently continued on Ancef. A culture showed what appeared to be Staphylococcus aureus, methicillin-resistant. An infectious disease consultation was obtained with Dr. Rios, who adjusted the antibiotics used and has continued to monitor and adjust antibiotics. The wound has remained benign. After a small amount of bloody drainage, there has been no drainage. Her drains were removed on postoperative day 2. Orders were made for placement of a PICC line. This was carried out on 09/01/2017. Arrangements were made for discharge, however [facility] did not feel that she qualified and multiple shelter facilities refused placement because of the cost of antibiotics. She is discharged to SNF ([facility]). Pt Condition on Discharge: Good Discharge Disposition: Discharge to SNF Discharge Instructions Diet Instructions: As Tolerated, No Restrictions Activities You Can Perform: Weight Bearing as Karol, Full Weight Bearing, Shower Only-No Bath Activities to Avoid: Lifting/Bending, Prolonged Standing, Strenuous Activity, Bathing, Driving Follow up Referrals: Appointment for Follow Up - 2 Weeks @ [facility] with MD Dr.Reba Yonas [facility] with Salo Mari MD ([facility]) Orthopedics with Salo Mari MD ([facility]) PCP Follow-up New Medications: Daptomycin Inj (Cubicin Inj) 500 Mg Bag 1000 MG IV Q24H for Infection for 40 Days, BAG 0 Refills Must dilute in appropriate IV Fluid prior to administration Epinephrine Inj (Epinephrine Inj) 1 Mg/Ml (1 Ml) Inj 0.3 MG IV PUSH ONCE PRN for ALLERGIC REACTION, #1 VIAL Epinephrine Inj (Epinephrine Inj) 1 Mg/Ml (1 Ml) Inj 0.3 MG SQ ONCE PRN for ALLERGIC REACTION, #1 VIAL Give with any signs of respiratory distress. Hydrocortisone Inj (Solu-Cortef Inj) 250 Mg/2 Ml Inj 250 MG IV PUSH ONCE PRN for ALLERGIC REACTION, #1 VIAL 0 Refills Give over 30-60 seconds. Walker with Front Wheels (Walker with Front Wheels) 1 Mis Mis EA .XX DIRECTED, #1 0 Refills Salo Mari MD ([facility]) September 02, 2017 07:39
[2017-09-02 08:00] VITALS: BP 164/70; PULSE 108; RESP 18; TEMP 98.2; O2SAT 99
[2017-09-02] MEDS: ACETAMINOPHEN/HYDROcodone 325 MG/5 MG TAB PO PRN ×2 (10:04→17:58)
[2017-09-02 12:00] VITALS: BP 138/66; PULSE 97; RESP 18; TEMP 97.7; O2SAT 94
--- NOTE | 2017-09-02 13:35 | HHI.IDPN ---
Subjective Subjective Remarks chart was reviewed 77 yo F with sp L knee replacement 08/11 presented with incision dehiscence Intra op wound cultures with MRSA On daptomycin No fever No rash No diarrhea Antibiotics daptomycin Lines Lines ok Past Medical History reviewed Allergies: Coded Allergies: No Known Allergies (Unverified Allergy, Unknown, 08/28/17) Objective . Vital Signs Date Time Temp Pulse Resp B/P (MAP) Pulse Ox O2 Delivery O2 Flow Rate FiO2 09/02/17 12:00 97.7 97 18 138/66 (90) 94 09/02/17 08:00 98.2 108 18 164/70 (101) 99 09/02/17 00:00 98.4 88 20 144/63 (90) 96 09/01/17 20:00 99.3 96 18 125/75 (92) 94 09/01/17 16:00 99.2 89 18 161/70 (100) 96 09/02/17 09/02/17 09/03/17 15:00 23:00 07:00 Intake Total 0 ml Balance 0 ml IV Total 0 ml Physical Exam GENERAL: This is a well-nourished, well-developed patient, in no apparent distress. SKIN: No rashes, ecchymoses or lesions. Cool and dry. EYES: No scleral icterus. No injection or drainage. RESPIRATORY: Breathing unlaboured. GASTROINTESTINAL: Abdomen soft, non-tender, nondistended. Obese. MUSCULOSKELETAL: Rt knee Immobilizer in place. NEUROLOGICAL: Awake and alert. non focal Psych cooperative IV line sites with no e/o infection Assessment & Plan Remarks Right knee wound infection: MRSA Right knee possible hardware infection or seeding. Obesity BMO 38.2 Acute renal failure: prerenal, baseline. Recs Continue Daptomycin IV(given obesity, age and high Cr will use Dapto instead of Vanco IV. Not a candidate for Vanco IV) - Rx x 6 wks Cannot use Rifampin due to drug interactions. Check CK and monitor clinically and CK for rhabdomyolysis as patient on Pravastatin. Follow clinically. Will sign off please call back if patient not discharged for any reason or if any issues in DC planning or clinical change. Amanda Rios MD September 02, 2017 13:35
--- NOTE | 2017-09-02 13:46 | HHI.FF ---
cc: Massiel Branham MD Infusion Therapy Location of Infusion Therapy: Home [facility] Care IV Infusion Order Patient Information Appointment Date: September 02, 2017 Patient Weight 100.1 kg Diagnosis: Diagnosis MRSA surgical wound infection MRSA Hardware infection Coded Allergies: No Known Allergies (Unverified Allergy, Unknown, 08/28/17) Administer Medication Daptomycin 1 gram IV q 24 hours Start Treatment: September 02, 2017 Stop Treatment: Oct 09, 2017 Additional Information Venous access: PICC Line Additional Instructions [x] Peripheral flush and dressing changes per protocol [x] Implanted port and central line closer: * Implanted port: 10 ml Normal Saline followed by 5 ml Heparin 100 units/ml Heparin flush after each use and monthly to maintain. [] May leave port accessed during therapy. [] May leave peripheral site accessed for duration of therapy. [x] If patient has SOB or respiratory distress, check oxygen saturation. If less than 90% or clinical signs of respiratory distress, administer oxygen at 2 L/min. via nasal cannula and notify physician. [x] Anaphylaxis/Reaction orders: * Stop infusion. * Keep IV line open with saline flush. * Notify physician. * Monitor vital signs every 15 minutes until symptoms resolve. * Check Oxygen saturation; Oxygen at 2 L/min. via nasal cannula if less than 90% or clinical signs of respiratory distress. * Administer diphenhydramine (Benadryl) 25 mg IV STAT, (unless patient has received as pre-med). May repeat once, if necessary. * Solu-Cortef 250 mg IVP over 30-60 seconds, use 100 mg vials for each dissolution. * Epinephrine (1mg/1 ml) 0.3 mg subcutaneously or IVP now with any signs of respiratory distress. * Check with physician for new additional pre-med orders if patient is re- challenged or re-treated. [x] May remove PICC line when treatment complete, after confirming with Physician. [x] If the patient is admitted to the hospital, the ED, or transferred via [facility] , complete transfer form including medication reconciliation order sheet. Laboratory Tests Weekly Labs: CBC w/diff, Creatinine, CRP, LFT's (Hepatic function test), Serum CK Levels Additional Information Please draw weekly labs and fax to numbers below. Please call with abnormals, change in clinical condition or problems to: Dr.Reba Branham or /[facility] Physician Follow up appt: Patient to schedule follow up appt with Dr.Reba Branham within 2 weeks post discharge. Follow up with PCP Follow up with other MDs as planned. Counseling: Counseled about medication side effects Counseled about PICC line care and hand hygiene. Amanda Rios MD September 02, 2017 13:46
[2017-09-02] MEDS ORDERED: HALO1TAB PO (16:59)
== END 2017-09-02 19:15 | DRG 501 ==
LOC: NEPD 21:19 → NEDA 22:32 → N06A 08-28 04:02 → N07B 08-29 19:50
PROVIDERS: ADMIT Orthopaedic Surgery; ATTEND Orthopaedic Surgery
PROC: 0JDP0ZZ Extraction of Left Lower Leg Subcutaneous Tissue and Fascia, Open Approach (ICD-10-PCS; principal; 2017-08-27 23:01)
PROC: 05HY33Z Insertion of Infusion Device into Upper Vein, Percutaneous Approach (ICD-10-PCS; 2017-09-01)
DX: T84.54XA Infection and inflammatory reaction due to internal left knee prosthesis, initial encounter (principal); T81.32XA Disruption of internal operation (surgical) wound, not elsewhere classified, initial encounter; N17.9 Acute kidney failure, unspecified; M86.9 Osteomyelitis, unspecified; B95.62 Methicillin resistant Staphylococcus aureus infection as the cause of diseases classified elsewhere; E87.5 Hyperkalemia; F20.9 Schizophrenia, unspecified; D64.9 Anemia, unspecified; I10 Essential (primary) hypertension; E66.9 Obesity, unspecified; Z68.37 Body mass index [BMI] 37.0-37.9, adult; E78.5 Hyperlipidemia, unspecified; G47.30 Sleep apnea, unspecified; Z96.652 Presence of left artificial knee joint; M25.561 Pain in right knee; M25.562 Pain in left knee; M19.90 Unspecified osteoarthritis, unspecified site; Y83.8 Other surgical procedures as the cause of abnormal reaction of the patient, or of later complication, without mention of misadventure at the time of the procedure; Z79.82 Long term (current) use of aspirin
CPT/HCPCS: 36569; 76937; 80048; 80053; 82550; 85014; 85018; 85025; 85652; 86140; 86403; 87040; 87070; 87147; 87186; 87205; 94150; 96374; J0330; J0690; J0878; J1100; J1580; J1885; J2270; J2370; J2405; J2710; J3010; J3370; J7030; J7050; J7120; L1830